=== PATIENT | female | born 1950 | race Two or more races ===

== ENCOUNTER 2017-02-11 16:45 | Inpatient (IN) | payer MEDICAID ==
[2017-02-11] VITALS (13 sets, daily range): BP systolic 49–125; BP diastolic 20–96
[~2017-02-11] VITALS: Ht 160 cm; Wt 71.7 kg
[2017-02-11] MEDS ORDERED: Vancomycin 1 GM in NS 275 ML IV ONE (17:00)
[2017-02-11] MEDS ORDERED: NS 1000ml 1,700 ML IVLG ONE (17:00)
[2017-02-11] MEDS ORDERED: PANTOPRAZOLE SO40 MG GT (17:00)
[2017-02-11] MEDS ORDERED: BRIMONIDINE TART5 ML RIGHT EYE (17:00)
[2017-02-11] MEDS ORDERED: ZOFRAN 4 MG4 MG/2 ML IV (17:00)
[2017-02-11] MEDS ORDERED: Cefepime HCl 1 GM in NS 55 ML IV SCH (17:00)
[2017-02-11] MEDS ORDERED: ASPIR 8181 MG GT (17:00)
[2017-02-11] MEDS ORDERED: HEPARIN SO5000 UNIT2 SUBQ (17:00)
[2017-02-11] MEDS ORDERED: METOPROLOL TART25 MG GT (17:00)
[2017-02-11] MEDS ORDERED: TRUSOPT10 ML RIGHT EYE (17:00)
[2017-02-11] MEDS ORDERED: IRON325 M1 GT (17:00)
[2017-02-11 17:32] LABS: APPEARANCE,URINE CLEAR; KETONES,URINE NEGATIVE (NEGATIVE); LEUKOCYTE ESTERASE ,URINE 1+ (NEGATIVE); NITRITE,URINE NEGATIVE (NEGATIVE); PH,URINE 5 (4.5-8.0); PROTEIN,URINE 2+ (NEGATIVE); UROBILINOGEN,URINE NORMAL MG/DL (0.0-1.0)
[2017-02-11 17:45] LABS: BACTERIA,URINE MODERATE /HPF; SQUAMOUS EPITHELIAL CELL,UR OCCASIONAL /LPF (NONE/OCC)
[2017-02-11] MEDS ORDERED: Cefepime 1gm vial ONE (17:59)
[2017-02-11 18:03] LABS: MEAN CORPUSCULAR HEMOGLOBIN 31.4 PG (27.0-31.0); MEAN CORPUSCULAR HGB CONC 33.9 G/DL (32.0-36.0); MEAN CORPUSCULAR VOLUME 93 FL (80-99); MEAN PLATELET VOLUME 8.8 FL (6.5-10.1); PLATELET COUNT 380 K/UL (150-450); RED BLOOD COUNT 2.91 M/UL (4.20-5.40); RED CELL DISTRIBUTION WIDTH 16.4 % (11.6-14.8)
[2017-02-11 18:05] LABS: BASOPHILS % (AUTO) 0.5 % (0.0-2.0); LYMPHOCYTES % (AUTO) 3.6 % (20.0-45.0); NEUTROPHILS % (AUTO) 94.8 % (45.0-75.0)
[2017-02-11 18:14] LABS: PROTHROMBIN TIME 10.5 SEC (9.30-11.50)
[2017-02-11] MEDS ORDERED: Vancomycin 1gm inj IVPB ONE (18:15)
[2017-02-11 18:18] LABS: TROPONIN I < 0.30 ng/mL (<=0.30)
[2017-02-11 18:21] LABS: ALANINE AMINOTRANSFERASE 8 U/L (3-33); ALBUMIN/GLOBULIN RATIO 0.5 (1.0-2.7); ANION GAP 13 (5-15); ASPARTATE AMINO TRANSFERASE 16 U/L (5-40); CALCIUM 6.9 mg/dL (8.6-10.2); CARBON DIOXIDE 20 mEQ/L (20-30); CHLORIDE 99 mEQ/L (98-107); CREATININE 0.6 mg/dL (0.5-0.9); GLOMERULAR FILTRATION RATE > 60 mL/min (>60); HEMOLYSIS 2; POTASSIUM 5.5 mEQ/L (3.4-4.9); SODIUM 132 mEQ/L (135-145); TOTAL PROTEIN 5.2 g/dL (6.6-8.7)
[2017-02-11 18:31] LABS: CKMB 1.8 ng/mL (< 3.8)
--- NOTE | 2017-02-11 18:39 | Emergency Room Report ---
History of Present Illness General Chief Complaint: Dyspnea/Respdistress Source: Patient, EMS Present Illness HPI [facility] She presents with concern of aspiration. The patient was vomiting and the [facility] staff noted stomach contents coming from her trach. Patient has a history of metastatic breast cancer. She has a history of respiratory failure and is ventilator dependent. She is status post tracheostomy. She diabetes. History of renal failure. She is nonverbal. History is obtained from EMS and from the patient's medical record. EMS reports that on arrival the patient's oxygen saturation were low in the 80s. However, the saturation normalized 100% when they were bagging this patient. Allergies: Coded Allergies: No Known Allergies (Unverified , 02/11/17) Patient History Past Medical History: see triage record, old chart reviewed, DM, renal disease , other - Metastatic breast CA, anemia DVT, vent/PEG Past Surgical History: other - Tracheostomy, PEG Social History: Denies: smoking, alcohol use, drug use Reviewed Nursing Documentation: PMH: Agreed, PSxH: Agreed Nursing Documentation-PMH Past Medical History: No History, Except For Hx Hypertension: Yes Hx Pacemaker: No - ANEMIA Hx Diabetes: Yes Hx Cancer: Yes - LEFT BREAST Hx Seizures: No - ON VENT Review of Systems All Other Systems: limited Physical Exam Vital Signs Date Time Temp Pulse Resp B/P (MAP) Pulse Ox O2 Delivery O2 Flow Rate FiO2 02/11/17 16:42 118 20 108/54 100 Mechanical Ventilator 02/11/17 16:45 100 02/11/17 17:00 100.9 15.0 Sp02 EP Interpretation: reviewed, normal General Appearance: no apparent distress, other - frail, ill appearing female. Non-repsonsive, +bilious fluid from mouth. , Chronically Ill Head: normocephalic, atraumatic ENT: no angioedema Neck: other - Trach in place Respiratory: chest non-tender, lungs clear, normal breath sounds, speaking full sentences Cardiovascular #1: tachycardia, other - Anasarca Gastrointestinal: soft, distended Rectal: deferred Musculoskeletal: swelling - Anasarca Neurologic: other - GCS 3T, non-focal Skin: other - Anasarca Medical Decision Making Diagnostic Impression: Primary Impression: Septic shock ER Course This patient presents in septic shock. She had bilious vomiting on arrival. She was suctioned with a deep suction catheter by respiratory therapy. She is placed on a ventilator. She does not have any desaturations. She is found to have bilateral pleural effusions on chest x-ray. I am unsure of the acuity of this. There is no prior available. The G-tube was also placed to intermittent suction given the vomiting. Patient's white blood cell count is 18 and the patient was hypotensive on arrival. The patient responded to aggressive IV fluids and was given broad-spectrum antibiotics. CT of the abdomen and pelvis was obtained after the patient's blood pressure stabilized and this showed . . This patient is critically ill. This patient required complex medical decision- making, aggressive intervention, extensive laboratory workup and monitoring. Critical care time: 40 minutes. Laboratory Tests Test 02/11/17 17:05 02/11/17 17:40 Urine Color Yellow Urine Appearance Clear Urine pH 5 (4.5-8.0) Urine Specific [place] 1.015 (1.005-1.035) Urine Protein 2+ (NEGATIVE) H Urine Glucose (UA) Negative (NEGATIVE) Urine Ketones Negative (NEGATIVE) Urine Occult Blood 2+ (NEGATIVE) H Urine Nitrite Negative (NEGATIVE) Urine Bilirubin Negative (NEGATIVE) Urine Urobilinogen Normal MG/DL (0.0-1.0) Urine Leukocyte Esterase 1+ (NEGATIVE) H Urine RBC 10-15 /HPF (0 - 2) H Urine WBC 5-10 /HPF (0 - 2) H Urine Squamous Epithelial Cells Occasional /LPF Urine Bacteria Moderate /HPF (NONE) H White Blood Count 18.0 K/UL (4.8-10.8) H Red Blood Count 2.91 M/UL (4.20-5.40) L Hemoglobin 9.1 G/DL (12.0-16.0) L Hematocrit 27.0 % (37.0-47.0) L Mean Corpuscular Volume 93 FL (80-99) Mean Corpuscular Hemoglobin 31.4 PG (27.0-31.0) H Mean Corpuscular Hemoglobin Concent 33.9 G/DL (32.0-36.0) Red Cell Distribution Width 16.4 % (11.6-14.8) H Platelet Count 380 K/UL (150-450) Mean Platelet Volume 8.8 FL (6.5-10.1) Neutrophils (%) (Auto) 94.8 % (45.0-75.0) H Lymphocytes (%) (Auto) 3.6 % (20.0-45.0) L Monocytes (%) (Auto) 1.0 % (1.0-10.0) Eosinophils (%) (Auto) 0.0 % (0.0-3.0) Basophils (%) (Auto) 0.5 % (0.0-2.0) Prothrombin Time 10.5 SEC (9.30-11.50) Prothrombin Time INR 1.0 (0.9-1.1) PTT 41 SEC (23-33) H Sodium Level 132 mEQ/L (135-145) L Potassium Level 5.5 mEQ/L (3.4-4.9) H Chloride Level 99 mEQ/L (98-107) Carbon Dioxide Level 20 mEQ/L (20-30) Anion Gap 13 (5-15) Blood Urea Nitrogen 34 mg/dL (7-23) H Creatinine 0.6 mg/dL (0.5-0.9) Estimate Glomerular Filtration Rate > 60 mL/min (>60) Glucose Level 152 mg/dL (74-106) H Lactic Acid Level 1.80 mmol/L (0.66-2.22) Calcium Level 6.9 mg/dL (8.6-10.2) L Total Bilirubin 0.3 mg/dL (0.0-1.2) Aspartate Amino Transferase (AST) 16 U/L (5-40) Alanine Aminotransferase (ALT) 8 U/L (3-33) Alkaline Phosphatase 102 U/L (35-104) Total Creatine Kinase 21 U/L (26-140) L Creatine Kinase MB Pending Troponin I < 0.30 ng/mL (<=0.30) Total Protein 5.2 g/dL (6.6-8.7) L Albumin 1.8 g/dL (3.5-5.2) L Globulin 3.4 g/dL Albumin/Globulin Ratio 0.5 (1.0-2.7) L EKG Diagnostic Results Rate: tachycardiac Rhythm: other ST Segments: other - NSST Rhythm Strip Diag. Results EP Interpretation: yes Rate: 110's Rhythm: no PVC's, no ectopy Other Impression S.tachycardia. Chest X-Ray Diagnostic Results Chest X-Ray Diagnostic Results : Chest X-Ray Ordered: Yes # of Views/Limited/Complete: 1 View Indication: Other Interpretation: other Impression: Other - Bilateral pleural effusions. Electronically Signed by: Stas CT/MRI/US Diagnostic Results CT/MRI/US Diagnostic Results : Imaging Test Ordered: CT abd/pelvis Impression Consolidation of the right lower lobe. No acute findings. See official report for multiple incidental and chronic findings. Last Vital Signs Date Time Temp Pulse Resp B/P (MAP) Pulse Ox O2 Delivery O2 Flow Rate FiO2 02/11/17 18:15 100.1 106 21 117/96 100 Mechanical Ventilator 15.0 100 Disposition: ADMITTED INPATIENT Condition: Critical Referrals: AMALIA HUGO (PCP) LESLIE SRIVASTAVA D.O. Feb 11, 2017 18:39
[2017-02-11] MEDS ORDERED: Acetaminophen 650 MG SUPP RECTAL ONE (18:45)
[2017-02-11] MEDS ORDERED: Zolpidem 5mg tab ORAL PRN (22:45)
[2017-02-11] MEDS ORDERED: Metoprolol 25mg tab GT ONE (23:00)
[2017-02-12] VITALS (26 sets, daily range): BP systolic 82–130; BP diastolic 44–92
[2017-02-12] MEDS ORDERED: Vancomycin 1gm inj IVPB ONE (00:59)
[2017-02-12] MEDS ORDERED: Zosyn 3.375gm inj ONE (01:00)
[2017-02-12] MEDS: Piperacillin/Tazobactam 3.375 GM in D5W 110 ML IVPB SCH ×3 (01:30→17:30)
[2017-02-12 04:18] LABS: MEAN CORPUSCULAR HEMOGLOBIN 31.5 PG (27.0-31.0); MEAN CORPUSCULAR HGB CONC 33.8 G/DL (32.0-36.0); MEAN CORPUSCULAR VOLUME 93 FL (80-99); MEAN PLATELET VOLUME 8.8 FL (6.5-10.1); PLATELET COUNT 342 K/UL (150-450); RED BLOOD COUNT 2.62 M/UL (4.20-5.40); RED CELL DISTRIBUTION WIDTH 16.7 % (11.6-14.8)
[2017-02-12 04:27] LABS: ANION GAP 12 (5-15); CALCIUM 6.6 mg/dL (8.6-10.2); CARBON DIOXIDE 17 mEQ/L (20-30); CHLORIDE 103 mEQ/L (98-107); CREATININE 0.5 mg/dL (0.5-0.9); GLOMERULAR FILTRATION RATE > 60 mL/min (>60); HEMOLYSIS 45; POTASSIUM 5.1 mEQ/L (3.4-4.9); SODIUM 132 mEQ/L (135-145)
[2017-02-12 04:57] LABS: WHITE BLOOD COUNT 25.4 K/UL (4.8-10.8)
[2017-02-12] MEDS: LORazepam 0.5mg tab GT PRN (05:46)
[2017-02-12] MEDS ORDERED: Zolpidem 5mg tab GT PRN (06:00)
[2017-02-12] MEDS: NovoLOG Insulin Flexpen SUBQ SCH ×4 (06:18→21:00)
[2017-02-12] MEDS ORDERED: NovoLOG Insulin Flexpen SUBQ SCH (06:30)
[2017-02-12] MEDS ORDERED: Vancomycin 750mg/NS 250ml IVPB SCH (07:00)
[2017-02-12] MEDS: Aspirin Baby 81mg GT SCH (08:44)
[2017-02-12] MEDS: Docusate 100mg/10ml Liq GT SCH (08:44)
[2017-02-12] MEDS: Ferrous Sulfate 300 MG/5 ML UDC GT SCH ×3 (08:44→17:30)
[2017-02-12] MEDS: Heparin 5000 units/ml inj SUBQ SCH ×2 (08:51→18:19)
[2017-02-12] MEDS: Levemir Flexpen SUBQ SCH ×2 (09:00→16:24)
[2017-02-12] MEDS ORDERED: Docusate 100mg cap ORAL SCH (09:00)
[2017-02-12] MEDS ORDERED: Dyna-Hex 2% Top Sol 2oz TOPIC SCH (09:00)
--- NOTE | 2017-02-12 09:05 | Diagnostic Imaging Report ---
Clinical Indication: Abdominal pain Technique: No oral contrast utilized, per emergency room physician request IV administration nonionic contrast. Venous phase spiral acquisition obtained through the abdomen and pelvis. Multiplanar reconstructions were generated. Total dose length product 1036 mGycm. CTDIvol(s) 19 mGy. Dose reduction achieved using automated exposure control Comparison: None Findings: There is anasarca. There is generalized edema of the subcutaneous fat diffusely. There is less striking edema of the mesenteric and retroperitoneal fat. There is trace ascites fluid. There is trace bilateral pleural fluid. There is a small amount of pericardial fluid posteriorly and laterally. There is a gastrostomy in place. The distal esophagus and the remainder the stomach are unremarkable. Unremarkable duodenum. No evidence of diverticulosis or diverticulitis. The appendix is not definitely visualized, but there are no findings to suggest acute appendicitis. In the right lower quadrant, there is a well-circumscribed unilocular cystic lesion which measures 5.5 cm long axis dimension, demonstrates a minimally perceptible minimally enhancing rim. No small bowel distention. No free intraperitoneal air is demonstrated. The gallbladder contains one or more gallstones. Focal fatty infiltration is seen in the liver in the usual location adjacent to the fissure for the ligamentum teres. Nonspecific linear hypodensities are seen in the right and left hepatic lobes. No biliary ductal dilatation. The pancreas, spleen, adrenals, kidneys are unremarkable. No retroperitoneal or mesenteric mass or adenopathy. The uterus is unremarkable. There is a Schulz catheter within the bladder. There is air within the bladder, presumably related to the Schulz catheterization. Unusual pocket of gas is seen anterior and superior to the bladder. Is unclear whether this is intraluminal within the bladder or represents extraluminal perivesicular gas. Unusual pockets are also seen at the base of the bladder, relationship to the bladder lumen likewise uncertain although suspect that these are intraluminal. The included lung bases demonstrate diffuse consolidation of the entirety of the right lower lobe. The consolidation is very low in attenuation. There is less extensive consolidation of the left lower lobe and the lingula. Reticulonodular opacities are seen scattered throughout the right upper lobe. There is some consolidation and reticulonodular opacities within the right middle lobe as well. The tip of a central venous catheter is seen within the right. There is increased attenuation of the right breast and some focal skin thickening of the right breast is somewhat asymmetrically decreased size of the left breast and possible dystrophic calcifications. The bones demonstrate numerous osteosclerotic lesions within the thoracic and lumbar spine as well as within the pelvis. Impression: Anasarca, with generalized edema of the subcutaneous fat diffusely, edema of the mesenteric and retroperitoneal fat, trace ascites, trace bilateral pleural fluid, pericardial fluid Consolidation of the entire right lower lobe, portions of the remainder of the lungs. Findings are concerning for pneumonia. Low-attenuation of much of the consolidative opacity raises concern for necrotizing pneumonia Well-circumscribed unilocular cystic lesion in the right lower quadrant of the abdomen with minimally perceptible minimally enhancing rim. Probably a cystic lesion, possibly and adnexal cyst or an enteric duplication. However, complicated loculated ascites collection or abscess are also a possibility. The possibility of cystic neoplasm also should be considered Cholelithiasis Schulz catheter. There are pockets that are probably intraluminal within the bladder related to Schulz catheter. However, there are somewhat unusual in configuration, and the possibility of extraluminal perivesicular gas s -- hould be considered, while less likely Focal increased attenuation of the right breast and focal skin thickening in the right breast. Possibly related to the anasarca, with possibly of inflammatory carcinoma should be considered. Asymmetric smaller left breast, correlate with any history of prior lumpectomy Numerous sclerotic osseous foci, suspicious for osteoblastic metastases, possibly of breast origin given the above findings Other findings as noted, including central venous catheter, focal fatty infiltration in the liver, gastrostomy in good position Artery [employer] The CT scanner at [facility] is accredited by the [employer] and the scans are performed using protocols designed to limit radiation exposure to as low as reasonably achievable to attain images of sufficient resolution adequate for diagnostic evaluation.
[2017-02-12 09:44] LABS: ANISOCYTOSIS 1+; BAND NEUTROPHILS % (MANUAL) 7 % (0-8); BASOPHILS % (MANUAL) 0 % (0-2); BURR CELLS 1+; EOSINOPHILS % (MANUAL) 0 % (0-3); HYPOCHROMASIA 1+; LYMPHOCYTES % (MANUAL) 7 % (20-45); METAMYELOCYTES % 9 % (0-0); NEUTROPHILS % (MANUAL) 74 % (45-75); PLATELET ESTIMATE ADEQUATE; PLATELET MORPHOLOGY NORMAL; TOTAL CELLS COUNTED 100
[2017-02-12 09:45] LABS: ACANTHOCYTES 1+; POLYCHROMASIA 1+
--- NOTE | 2017-02-12 09:58 | Wound Care Consultation ---
Wound Assessment Wound Assessment #1: Wound Number: 1 Wound Present on Admission: Yes New Wound: No Status Change of Wound: No Wound Location Body Site Modif: mid Wound Location Body Site: sacral Wound Type: pressure ulcer Valerie Test: Does not Valerie Pressure Ulcer Stage: IV/unstageable Wound Thickness: Full Thickness Wound Length: 3.5 Wound Width: 3.0 Wound Depth: utd Percent of Wound [place]/Red: 50 Percent of Wound Bed Yellow/Wh: 50 Wound Drainage Description: Serosanguineous Wound Drainage Amount: Moderate Wound Drainage Odor: None/Absent Tissue Surrounding Wound: Macerated Wound General Appearance: Reddened - yellow slough, Draining Wound Assessment #2: Wound Number: 2 Wound Present on Admission: Yes New Wound: No Status Change of Wound: No Wound Location Body Site Modif: left, right Wound Location Body Site: iliac crest Wound Type: other - scattered Denuded skin Valerie Test: Does not Valerie Wound Thickness: Partial Thickness Wound Length: 2.5 Wound Width: 9.0 Wound Depth: less than 0.1 Percent of Wound [place]/Red: 100 Wound Drainage Description: Serosanguineous Wound Drainage Amount: Scant Wound Drainage Odor: None/Absent Tissue Surrounding Wound: Erythemic Wound General Appearance: Reddened Wound Assessment #3: Wound Number: 3 Wound Present on Admission: Yes New Wound: No Status Change of Wound: No Wound Location Body Site Modif: left Wound Location Body Site: ischial tuberosity Wound Type: pressure ulcer Valerie Test: Does not Valerie Pressure Ulcer Stage: II Wound Thickness: Partial Thickness Wound Length: 2.0 Wound Width: 2.5 Wound Depth: less than 0.1 Percent of Wound [place]/Red: 100 Wound Drainage Description: Serosanguineous Wound Drainage Amount: Scant Wound Drainage Odor: None/Absent Tissue Surrounding Wound: Erythemic Wound General Appearance: Reddened, Draining Wound Comment #1 Sacral unstageable pressure ulcer #2 Left ischial tuberosity stage II pressure ulcer #3 Left and right iliac crest scattered denuded skin with partial thickness skin loss #4 Right back area with sutures and willie. Follow MD order #5 Multiple discolorations on both arms Recommendation -Sacral unstageable pressure ulcer, Cleanse with saline, pat dry, apply skin barrier film to avril wound, apply Therahoney gel to wound bed, cover with calcium alginate, secure with bordered gauze daily and PRN soiled/dislodged -Left ischial tuberosity stage II pressure ulcer, Left and right iliac crest denuded skin, Cleanse with saline, pat dry, apply Triad cream, cover with Bordered gauze daily and PRN soiled/dislodged -Turn and reposition -Offload both heel -Heel protector on both heels -Optimize nutrition -Keep clean and dry -Low air loss mattress -Assess and f/u accordingly for any changes ALANNAH ROLLINS RN Feb 12, 2017 09:58
--- NOTE | 2017-02-12 10:52 | Diagnostic Imaging Report ---
Indication: SOB Technique: One view of the chest Comparison: none Findings: There are bilateral large pleural effusions. There is a right chest port catheter. There is bilateral interstitial congestion. There is a tracheostomy. Heart size is difficult to assess, may be borderline enlarged Impression: Bilateral pleural effusions Bilateral interstitial edema Tracheostomy and port catheter incidentally noted
--- NOTE | 2017-02-12 13:27 | History & Physical ---
History and Physical History & Physicial 66 year old patient [facility]. She presents with concern of aspiration and acute change. The patient was vomiting and the detention facility staff noted stomach contents coming from her trach. Patient has a history of metastatic breast cancer and family still desires ongoing care. She has a history of respiratory failure and is ventilator dependent and recently placed at [place]. She is status post tracheostomy. She diabetes. History of renal failure. She is nonverbal. Patient admitted for possible sepsis and pneumonia Allergies: No Known Allergies (Unverified , 02/11/17) Past Medical History: DM, renal disease, Metastatic breast CA, anemia DVT, vent/PEG Past Surgical History: Tracheostomy, PEG Social History: no smoking, alcohol use, drug use Reviewed of systems: unable Physical exam WDWN chronically ill NAD coarse breath sounds bilaterally [id number] without MRG NABS nontender no HSM no CC anasarca nonfocal Laboratory Tests Test 02/11/17 17:05 02/11/17 17:40 02/12/17 03:25 Urine Color Yellow Urine Appearance Clear Urine pH 5 (4.5-8.0) Urine Specific [place] 1.015 (1.005-1.035) Urine Protein 2+ (NEGATIVE) H Urine Glucose (UA) Negative (NEGATIVE) Urine Ketones Negative (NEGATIVE) Urine Occult Blood 2+ (NEGATIVE) H Urine Nitrite Negative (NEGATIVE) Urine Bilirubin Negative (NEGATIVE) Urine Urobilinogen Normal MG/DL (0.0-1.0) Urine Leukocyte Esterase 1+ (NEGATIVE) H Urine RBC 10-15 /HPF (0 - 2) H Urine WBC 5-10 /HPF (0 - 2) H Urine Squamous Epithelial Cells Occasional /LPF Urine Bacteria Moderate /HPF (NONE) H White Blood Count 18.0 K/UL (4.8-10.8) H 25.4 K/UL (4.8-10.8) *H Red Blood Count 2.91 M/UL (4.20-5.40) L 2.62 M/UL (4.20-5.40) L Hemoglobin 9.1 G/DL (12.0-16.0) L 8.2 G/DL (12.0-16.0) L Hematocrit 27.0 % (37.0-47.0) L 24.4 % (37.0-47.0) L Mean Corpuscular Volume 93 FL (80-99) 93 FL (80-99) Mean Corpuscular Hemoglobin 31.4 PG (27.0-31.0) H 31.5 PG (27.0-31.0) H Mean Corpuscular Hemoglobin Concent 33.9 G/DL (32.0-36.0) 33.8 G/DL (32.0-36.0) Red Cell Distribution Width 16.4 % (11.6-14.8) H 16.7 % (11.6-14.8) H Platelet Count 380 K/UL (150-450) 342 K/UL (150-450) Mean Platelet Volume 8.8 FL (6.5-10.1) 8.8 FL (6.5-10.1) Neutrophils (%) (Auto) 94.8 % (45.0-75.0) H % (45.0-75.0) Lymphocytes (%) (Auto) 3.6 % (20.0-45.0) L % (20.0-45.0) Monocytes (%) (Auto) 1.0 % (1.0-10.0) % (1.0-10.0) Eosinophils (%) (Auto) 0.0 % (0.0-3.0) % (0.0-3.0) Basophils (%) (Auto) 0.5 % (0.0-2.0) % (0.0-2.0) Prothrombin Time 10.5 SEC (9.30-11.50) Prothromb Time International Ratio 1.0 (0.9-1.1) Activated Partial Thromboplast Time 41 SEC (23-33) H Sodium Level 132 mEQ/L (135-145) L 132 mEQ/L (135-145) L Potassium Level 5.5 mEQ/L (3.4-4.9) H 5.1 mEQ/L (3.4-4.9) H Chloride Level 99 mEQ/L (98-107) 103 mEQ/L (98-107) Carbon Dioxide Level 20 mEQ/L (20-30) 17 mEQ/L (20-30) L Anion Gap 13 (5-15) 12 (5-15) Blood Urea Nitrogen 34 mg/dL (7-23) H 29 mg/dL (7-23) H Creatinine 0.6 mg/dL (0.5-0.9) 0.5 mg/dL (0.5-0.9) Estimat Glomerular Filtration Rate > 60 mL/min (>60) > 60 mL/min (>60) Glucose Level 152 mg/dL (74-106) H 84 mg/dL (74-106) Lactic Acid Level 1.80 mmol/L (0.66-2.22) Calcium Level 6.9 mg/dL (8.6-10.2) L 6.6 mg/dL (8.6-10.2) L Total Bilirubin 0.3 mg/dL (0.0-1.2) Aspartate Amino Transf (AST/SGOT) 16 U/L (5-40) Alanine Aminotransferase (ALT/SGPT) 8 U/L (3-33) Alkaline Phosphatase 102 U/L (35-104) Total Creatine Kinase 21 U/L (26-140) L Creatine Kinase MB 1.8 ng/mL (< 3.8) Creatine Kinase MB Relative Index 8.5 Troponin I < 0.30 ng/mL (<=0.30) Total Protein 5.2 g/dL (6.6-8.7) L Albumin 1.8 g/dL (3.5-5.2) L Globulin 3.4 g/dL Albumin/Globulin Ratio 0.5 (1.0-2.7) L Differential Total Cells Counted 100 Neutrophils % (Manual) 74 % (45-75) Lymphocytes % (Manual) 7 % (20-45) L Monocytes % (Manual) 3 % (1-10) Eosinophils % (Manual) 0 % (0-3) Basophils % (Manual) 0 % (0-2) Metamyelocytes % 9 % (0-0) H Band Neutrophils 7 % (0-8) Platelet Estimate Adequate Platelet Morphology Normal Polychromasia 1+ Hypochromasia 1+ Anisocytosis 1+ [place] Cells 1+ Acanthocytes 1+ IMPRESSION Sepsis respiratory failure anasarca CRF possible gastroparesis metastatic breast ca PLAN prognosis poor maintain meds dc iv fluids ID evaluation empiric antibiotics followup imaging and labs d/w family as to code status AMALIA HUGO Feb 12, 2017 13:27
[2017-02-12] MEDS: Brimonidine 0.2% Opth Sol RIGHT EYE SCH ×2 (13:48→21:01)
[2017-02-12] MEDS: Dorzolamide 2% 10ml Btl RIGHT EYE SCH ×2 (13:49→21:01)
--- NOTE | 2017-02-12 14:44 | Cardiology Report ---
APPROVED REPORT EKG Measurement Heart [id number] [place] [id number] Sinus tachycardia Low voltage QRS Abnormal QRS-T angle, consider primary T wave abnormality Abnormal ECG
[2017-02-12] MEDS: Vancomycin 750mg/NS 250ml IVPB SCH (19:37)
[2017-02-13] VITALS (24 sets, daily range): BP systolic 95–150; BP diastolic 36–96
[2017-02-13] MEDS: Piperacillin/Tazobactam 3.375 GM in D5W 110 ML IVPB SCH ×3 (02:33→17:12)
[2017-02-13] MEDS: Dorzolamide 2% 10ml Btl RIGHT EYE SCH ×3 (06:44→22:12)
[2017-02-13] MEDS: Brimonidine 0.2% Opth Sol RIGHT EYE SCH ×3 (06:44→22:12)
[2017-02-13] MEDS: NovoLOG Insulin Flexpen SUBQ SCH ×4 (06:46→20:44)
[2017-02-13 08:45] LABS: MEAN CORPUSCULAR HEMOGLOBIN 30.6 PG (27.0-31.0); MEAN CORPUSCULAR HGB CONC 32.7 G/DL (32.0-36.0); MEAN CORPUSCULAR VOLUME 93 FL (80-99); MEAN PLATELET VOLUME 8.3 FL (6.5-10.1); PLATELET COUNT 349 K/UL (150-450); RED BLOOD COUNT 2.69 M/UL (4.20-5.40); RED CELL DISTRIBUTION WIDTH 16.1 % (11.6-14.8)
[2017-02-13 08:53] LABS: WHITE BLOOD COUNT 39.4 K/UL (4.8-10.8)
[2017-02-13] MEDS: Aspirin Baby 81mg GT SCH (09:00)
[2017-02-13 09:03] LABS: ANION GAP 13 (5-15); CALCIUM 6.7 mg/dL (8.6-10.2); CARBON DIOXIDE 17 mEQ/L (20-30); CHLORIDE 105 mEQ/L (98-107); CREATININE 0.6 mg/dL (0.5-0.9); GLOMERULAR FILTRATION RATE > 60 mL/min (>60); HEMOLYSIS 1; POTASSIUM 4.9 mEQ/L (3.4-4.9); SODIUM 135 mEQ/L (135-145)
[2017-02-13] MEDS: Vancomycin 750mg/NS 250ml IVPB SCH (09:30)
[2017-02-13] MEDS: Acetaminophen 650mg/20.3ml GT PRN ×2 (09:31→17:15)
[2017-02-13] MEDS: Ferrous Sulfate 300 MG/5 ML UDC GT SCH ×3 (09:31→17:14)
[2017-02-13] MEDS: Docusate 100mg/10ml Liq GT SCH (09:31)
[2017-02-13] MEDS: Heparin 5000 units/ml inj SUBQ SCH ×2 (09:34→17:14)
[2017-02-13] MEDS: Levemir Flexpen SUBQ SCH ×2 (09:35→17:14)
[2017-02-13 10:20] LABS: BAND NEUTROPHILS % (MANUAL) 9 % (0-8); BASOPHILS % (MANUAL) 0 % (0-2); BURR CELLS 1+; EOSINOPHILS % (MANUAL) 0 % (0-3); LYMPHOCYTES % (MANUAL) 4 % (20-45); NEUTROPHILS % (MANUAL) 85 % (45-75); PLATELET ESTIMATE ADEQUATE; PLATELET MORPHOLOGY NORMAL; TOTAL CELLS COUNTED 100
[2017-02-13 10:21] LABS: ANISOCYTOSIS 1+; POLYCHROMASIA 1+; PROMYELOCYTES % 1 % (0-0); SCHISTOCYTES 1+
[2017-02-13 10:33] LABS: OTHERS PATHOLOGIST COMMENT
--- NOTE | 2017-02-13 14:58 | Critical Care Progress Note ---
Assessment/Plan Assessment/Plan IMPRESSION Sepsis respiratory failure anasarca CRF possible gastroparesis metastatic breast ca leukocytosis PLAN prognosis poor maintain meds feeds ID evaluation empiric antibiotics followup imaging and labs followup cultures d/w family as to code status Critical Care - Subjective ROS Limited/Unobtainable: Yes Condition: critical I&O: Intake and Output 02/13/17 02/14/17 19:00 07:00 Intake Total 1452.5 ml Output Total 380 ml Balance 1072.5 ml IV Total 982.5 ml Tube Feeding 350 ml Other 120 ml Output Urine Total 380 ml Critical Care - Objective Last 24 Hour Vital Signs Date Time Temp Pulse Resp B/P (MAP) Pulse Ox O2 Delivery O2 Flow Rate FiO2 02/13/17 14:00 109 26 101/36 100 Mechanical Ventilator 40 02/13/17 13:05 113 32 40 02/13/17 13:00 105 27 109/54 100 Mechanical Ventilator 40 02/13/17 12:00 40 02/13/17 12:00 114 02/13/17 12:00 98.2 102 22 130/53 100 Mechanical Ventilator 40 02/13/17 11:13 104 34 40 02/13/17 11:00 103 20 110/72 100 Mechanical Ventilator 40 02/13/17 10:01 98.7 02/13/17 10:00 107 21 97/78 100 Mechanical Ventilator 40 02/13/17 09:00 110 29 119/79 100 Mechanical Ventilator 40 02/13/17 08:46 104 34 40 02/13/17 08:00 104 02/13/17 08:00 98.7 102 23 120/37 100 Mechanical Ventilator 40 02/13/17 07:43 40 02/13/17 07:26 115 34 40 02/13/17 07:00 106 25 103/82 97 Mechanical Ventilator 40 02/13/17 06:00 103 25 127/79 99 Mechanical Ventilator 40 02/13/17 05:31 94 38 40 02/13/17 05:00 103 25 109/45 99 Mechanical Ventilator 40 02/13/17 04:00 98.0 104 25 115/45 99 Mechanical Ventilator 40 02/13/17 04:00 103 02/13/17 04:00 40 02/13/17 03:24 104 36 40 02/13/17 03:00 103 25 112/89 99 Mechanical Ventilator 40 02/13/17 02:00 101 25 102/86 99 Mechanical Ventilator 40 02/13/17 01:25 103 37 40 02/13/17 01:00 104 25 107/57 99 Mechanical Ventilator 40 02/13/17 00:30 107/57 02/13/17 00:00 40 02/13/17 00:00 97.9 104 25 100/44 99 Mechanical Ventilator 40 02/13/17 00:00 101 02/12/17 23:05 108 35 40 02/12/17 23:00 109 25 104/44 99 Mechanical Ventilator 40 02/12/17 22:00 109 23 118/69 99 Mechanical Ventilator 40 02/12/17 21:10 105 35 40 02/12/17 21:00 104 23 130/75 99 Mechanical Ventilator 40 02/12/17 20:00 40 02/12/17 20:00 105 02/12/17 20:00 97.8 103 26 111/71 99 Mechanical Ventilator 40 02/12/17 19:14 103 33 40 02/12/17 19:00 97 23 118/92 99 Mechanical Ventilator 40 02/12/17 18:01 101 25 111/56 99 Mechanical Ventilator 40 02/12/17 17:01 102 24 40 02/12/17 17:00 98 24 111/51 99 Mechanical Ventilator 40 02/12/17 16:00 99 02/12/17 16:00 98.4 100 23 109/68 99 Mechanical Ventilator 40 02/12/17 16:00 40 02/12/17 15:24 108 39 40 02/12/17 15:01 101 28 88/53 99 Mechanical Ventilator 40 Labs: Labs Test 02/11/17 17:05 02/11/17 17:40 02/12/17 03:25 02/13/17 07:45 Urine Color Yellow Urine Appearance Clear Urine pH 5 (4.5-8.0) Urine Specific [place] 1.015 (1.005-1.035) Urine Protein 2+ (NEGATIVE) Urine Glucose (UA) Negative (NEGATIVE) Urine Ketones Negative (NEGATIVE) Urine Occult Blood 2+ (NEGATIVE) Urine Nitrite Negative (NEGATIVE) Urine Bilirubin Negative (NEGATIVE) Urine Urobilinogen Normal MG/DL (0.0-1.0) Urine Leukocyte Esterase 1+ (NEGATIVE) Urine RBC 10-15 /HPF (0 - 2) Urine WBC 5-10 /HPF (0 - 2) Urine Squamous Epithelial Cells Occasional /LPF Urine Bacteria Moderate /HPF (NONE) White Blood Count 18.0 K/UL (4.8-10.8) 25.4 K/UL (4.8-10.8) 39.4 K/UL (4.8-10.8) Red Blood Count 2.91 M/UL (4.20-5.40) 2.62 M/UL (4.20-5.40) 2.69 M/UL (4.20-5.40) Hemoglobin 9.1 G/DL (12.0-16.0) 8.2 G/DL (12.0-16.0) 8.2 G/DL (12.0-16.0) Hematocrit 27.0 % (37.0-47.0) 24.4 % (37.0-47.0) 25.1 % (37.0-47.0) Mean Corpuscular Volume 93 FL (80-99) 93 FL (80-99) 93 FL (80-99) Mean Corpuscular Hemoglobin 31.4 PG (27.0-31.0) 31.5 PG (27.0-31.0) 30.6 PG (27.0-31.0) Mean Corpuscular Hemoglobin Concent 33.9 G/DL (32.0-36.0) 33.8 G/DL (32.0-36.0) 32.7 G/DL (32.0-36.0) Red Cell Distribution Width 16.4 % (11.6-14.8) 16.7 % (11.6-14.8) 16.1 % (11.6-14.8) Platelet Count 380 K/UL (150-450) 342 K/UL (150-450) 349 K/UL (150-450) Mean Platelet Volume 8.8 FL (6.5-10.1) 8.8 FL (6.5-10.1) 8.3 FL (6.5-10.1) Neutrophils (%) (Auto) 94.8 % (45.0-75.0) % (45.0-75.0) % (45.0-75.0) Lymphocytes (%) (Auto) 3.6 % (20.0-45.0) % (20.0-45.0) % (20.0-45.0) Monocytes (%) (Auto) 1.0 % (1.0-10.0) % (1.0-10.0) % (1.0-10.0) Eosinophils (%) (Auto) 0.0 % (0.0-3.0) % (0.0-3.0) % (0.0-3.0) Basophils (%) (Auto) 0.5 % (0.0-2.0) % (0.0-2.0) % (0.0-2.0) Prothrombin Time 10.5 SEC (9.30-11.50) Prothromb Time International Ratio 1.0 (0.9-1.1) Activated Partial Thromboplast Time 41 SEC (23-33) Sodium Level 132 mEQ/L (135-145) 132 mEQ/L (135-145) 135 mEQ/L (135-145) Potassium Level 5.5 mEQ/L (3.4-4.9) 5.1 mEQ/L (3.4-4.9) 4.9 mEQ/L (3.4-4.9) Chloride Level 99 mEQ/L (98-107) 103 mEQ/L (98-107) 105 mEQ/L (98-107) Carbon Dioxide Level 20 mEQ/L (20-30) 17 mEQ/L (20-30) 17 mEQ/L (20-30) Anion Gap 13 (5-15) 12 (5-15) 13 (5-15) Blood Urea Nitrogen 34 mg/dL (7-23) 29 mg/dL (7-23) 31 mg/dL (7-23) Creatinine 0.6 mg/dL (0.5-0.9) 0.5 mg/dL (0.5-0.9) 0.6 mg/dL (0.5-0.9) Estimat Glomerular Filtration Rate > 60 mL/min (>60) > 60 mL/min (>60) > 60 mL/min (>60) Glucose Level 152 mg/dL (74-106) 84 mg/dL (74-106) 249 mg/dL (74-106) Lactic Acid Level 1.80 mmol/L (0.66-2.22) Calcium Level 6.9 mg/dL (8.6-10.2) 6.6 mg/dL (8.6-10.2) 6.7 mg/dL (8.6-10.2) Total Bilirubin 0.3 mg/dL (0.0-1.2) Aspartate Amino Transf (AST/SGOT) 16 U/L (5-40) Alanine Aminotransferase (ALT/SGPT) 8 U/L (3-33) Alkaline Phosphatase 102 U/L (35-104) Total Creatine Kinase 21 U/L (26-140) Creatine Kinase MB 1.8 ng/mL (< 3.8) Creatine Kinase MB Relative Index 8.5 Troponin I < 0.30 ng/mL (<=0.30) Total Protein 5.2 g/dL (6.6-8.7) Albumin 1.8 g/dL (3.5-5.2) Globulin 3.4 g/dL Albumin/Globulin Ratio 0.5 (1.0-2.7) Differential Total Cells Counted 100 100 Neutrophils % (Manual) 74 % (45-75) 85 % (45-75) Lymphocytes % (Manual) 7 % (20-45) 4 % (20-45) Monocytes % (Manual) 3 % (1-10) 2 % (1-10) Eosinophils % (Manual) 0 % (0-3) 0 % (0-3) Basophils % (Manual) 0 % (0-2) 0 % (0-2) Metamyelocytes % 9 % (0-0) Band Neutrophils 7 % (0-8) 9 % (0-8) Other Cell Type Pathologist comment Platelet Estimate Adequate Adequate Platelet Morphology Normal Normal Polychromasia 1+ 1+ Hypochromasia 1+ Anisocytosis 1+ 1+ [place] Cells 1+ 1+ Acanthocytes 1+ Promyelocytes % 1 % (0-0) Schistocytes 1+ Vancomycin Level Trough 21.5 ug/mL (5.0-12.0) Objective: WDWN chronically ill and poorly responsive coarse breath sounds bilaterally [id number] without MRG NABS nontender no HSM; GT no CC noted edema poor LOC trach Micro: Microbiology Date/Time Source Procedure Growth Status 02/11/17 17:45 Blood Blood Culture - Preliminary NO GROWTH AFTER 24 HOURS Resulted 02/11/17 17:30 Blood Blood Culture - Preliminary NO GROWTH AFTER 24 HOURS Resulted 02/11/17 17:05 Urine,Clean Catch Urine Culture - Preliminary Yeast Species Resulted Accucheck: 264 AMALIA HUGO Feb 13, 2017 14:58
--- NOTE | 2017-02-13 16:24 | Emergency Room Report ---
History of Present Illness General Chief Complaint: Dyspnea/Respdistress Source: Patient, EMS Present Illness Allergies: Coded Allergies: No Known Allergies (Unverified , 02/11/17) Nursing Documentation-[facility] Past Medical History: No History, Except For Hx Hypertension: Yes Hx Pacemaker: No - ANEMIA Hx Diabetes: Yes Hx Cancer: Yes - LEFT BREAST Hx Gastrointestinal Problems: No - with gastrostomy Hx Seizures: No - ON VENT Physical Exam Vital Signs Date Time Temp Pulse Resp B/P (MAP) Pulse Ox O2 Delivery O2 Flow Rate FiO2 02/11/17 16:42 118 20 108/54 100 Mechanical Ventilator 02/11/17 16:45 100 02/11/17 17:00 100.9 15.0 Procedures CPR/Code Blue CPR/Code Blue Narrative 66-year-old female, sepsis, trached I got called in for CODE BLUE. Compressions ongoing, patient being bagged through trach Patient lost pulses while while being cleaned by nursing staff Asystole with initial rhythm CPR for 6 minutes epi x 2 given Rosc achieved, +palpable pulse Sinus tachycardia, 98 on 100% O2 Medical Decision Making Diagnostic Impression: Primary Impression: Septic shock Last Vital Signs Date Time Temp Pulse Resp B/P (MAP) Pulse Ox O2 Delivery O2 Flow Rate FiO2 02/13/17 15:05 107 36 40 02/13/17 15:00 123/46 100 Mechanical Ventilator 02/13/17 12:00 98.2 02/11/17 20:45 15.0 Disposition: ADMITTED INPATIENT Condition: Critical Referrals: AMALIA HUGO (PCP) Ysabel Thapa M.D. Feb 13, 2017 16:24
--- NOTE | 2017-02-13 16:30 | Consultation ---
DATE OF CONSULTATION: 02/13/2017 INFECTIOUS DISEASE CONSULTATION This consult is for coverage of Dr. Rivera. PRIMARY ATTENDING PHYSICIAN: Gunner Mak M.D. REASON FOR CONSULTATION: Sepsis and aspiration pneumonia. History Of Present Illness: The patient is a 66-year-old female admitted [facility] with decreasing in O2 saturation. The patient has leukocytosis and fever, has a temperature of 100.9 in the hospital. In the snf, it was noticed that the patient have gastric content in tracheostomy site and the patient was suspected to have aspiration pneumonitis. Past Medical History: Chronic respiratory failure status post tracheostomy. The patient is status post PEG. She has history of metastatic breast cancer, diabetes mellitus, anemia, pressure ulcer at the presentation with more severe in the sacral area. Medications: Getting vancomycin, sodium chloride, Alphagan eyedrops, dorzolamide eyedrops, heparin, aspirin, ferrous sulfate, Levemir insulin, Prevacid, Ambien, Zosyn, lorazepam, Mylanta, and Zofran. The patient was supposed to have norepinephrine, but the blood pressure went up with hydration. ALLERGIES: No known drug allergies. Social History: halfway resident. No other history is obtainable. PHYSICAL EXAMINATION: Vital Signs: Temperature currently is 98 degrees, pulse is 115, and blood pressure 103/82. HEAD AND NECK: Status post tracheostomy. Heart: Tachycardic. There is a Port-A-Cath in the right side of the chest. Lungs: The patient is on mechanical ventilator. Have bilateral rhonchi. ABDOMEN: Soft. There is a G-tube feeding. EXTREMITIES: Has generalized edema. Skin: Have pressure ulcer, the worst one is in the sacral area stage 4. Laboratory Data: WBC is 25.4, hemoglobin 8.2, hematocrit 24.4, and platelets is 242,000. Sodium 132, potassium 5.2, chloride 103, bicarbonate 17, BUN 29, creatinine 0.5. Chest x-ray showed bilateral effusion, bilateral edema. CT scan of the abdomen and pelvis, consolidation of anterior right lower lobe that is suspected of pneumonia, cholelithiasis, and anasarca. IMPRESSION: 1. Sepsis. 2. Aspiration pneumonia. 3. Stage 4 pressure ulcer. 4. Ventilator-dependent respiratory failure. 5. Diabetes mellitus. 6. Anemia. 7. History of metastatic breast cancer. Recommendations: We will continue with vancomycin and Zosyn. We will ask for respiratory culture. We will follow up the current cultures. At the end of my exam, I thank Dr. Mak for involving me in the care of this patient. Dakota Viera M.D. DR: МАРИНА JOB#: [id number] CC:
[2017-02-13] MEDS: Dyna-Hex 2% Top Sol 2oz TOPIC SCH (20:45)
[2017-02-13] MEDS: Vancomycin 500mg/D5W 110ml IVPB SCH ×2 (22:13)
[2017-02-13] MEDS: LORazepam 0.5mg tab GT PRN (23:45)
[2017-02-14] VITALS (24 sets, daily range): BP systolic 88–136; BP diastolic 14–84
[2017-02-14] MEDS: Piperacillin/Tazobactam 3.375 GM in D5W 110 ML IVPB SCH ×2 (01:59→09:13)
[2017-02-14 05:22] LABS: MEAN CORPUSCULAR HEMOGLOBIN 30.8 PG (27.0-31.0); MEAN CORPUSCULAR HGB CONC 33.1 G/DL (32.0-36.0); MEAN CORPUSCULAR VOLUME 93 FL (80-99); MEAN PLATELET VOLUME 7.8 FL (6.5-10.1); PLATELET COUNT 359 K/UL (150-450); RED BLOOD COUNT 2.63 M/UL (4.20-5.40)
[2017-02-14 05:35] LABS: WHITE BLOOD COUNT 40.2 K/UL (4.8-10.8)
[2017-02-14 05:46] LABS: ANION GAP 12 (5-15); CALCIUM 6.7 mg/dL (8.6-10.2); CARBON DIOXIDE 16 mEQ/L (20-30); CHLORIDE 108 mEQ/L (98-107); CREATININE 0.6 mg/dL (0.5-0.9); GLOMERULAR FILTRATION RATE > 60 mL/min (>60); HEMOLYSIS 1; POTASSIUM 4.9 mEQ/L (3.4-4.9); SODIUM 136 mEQ/L (135-145)
[2017-02-14] MEDS: NovoLOG Insulin Flexpen SUBQ SCH ×4 (06:19→20:45)
[2017-02-14] MEDS: Brimonidine 0.2% Opth Sol RIGHT EYE SCH ×3 (06:20→21:35)
[2017-02-14] MEDS: Dorzolamide 2% 10ml Btl RIGHT EYE SCH ×3 (06:27→21:35)
[2017-02-14 08:46] LABS: ANISOCYTOSIS 1+; BAND NEUTROPHILS % (MANUAL) 10 % (0-8); BASOPHILS % (MANUAL) 0 % (0-2); EOSINOPHILS % (MANUAL) 0 % (0-3); LYMPHOCYTES % (MANUAL) 1 % (20-45); METAMYELOCYTES % 1 % (0-0); NEUTROPHILS % (MANUAL) 84 % (45-75); NUCLEATED RED BLOOD CELLS 1 /100 WBC; PLATELET ESTIMATE ADEQUATE; PLATELET MORPHOLOGY NORMAL; TOTAL CELLS COUNTED 100
[2017-02-14] MEDS ORDERED: D5W 275ml ONE (09:02)
[2017-02-14] MEDS ORDERED: NS 275ml ONE ×2 (09:02)
[2017-02-14] MEDS ORDERED: Tubing IV Secondary IV ONE ×2 (09:02)
[2017-02-14] MEDS: Aspirin Baby 81mg GT SCH (09:12)
[2017-02-14] MEDS: Ferrous Sulfate 300 MG/5 ML UDC GT SCH ×3 (09:12→17:22)
[2017-02-14] MEDS: Docusate 100mg/10ml Liq GT SCH (09:12)
[2017-02-14] MEDS: Vancomycin 500mg/D5W 110ml IVPB SCH ×4 (09:13→21:35)
[2017-02-14] MEDS: Heparin 5000 units/ml inj SUBQ SCH ×2 (09:14→17:22)
[2017-02-14] MEDS: Levemir Flexpen SUBQ SCH ×2 (09:16→17:29)
[2017-02-14] MEDS: Acetaminophen 650mg/20.3ml GT PRN (10:35)
--- NOTE | 2017-02-14 12:20 | Infectious Diseases Prog Note ---
Assessment/Plan Assessment/Plan antibiotics : vancomycin iv, zosyn A 1. aspiration pneumonia 2. UTI 3. increasing leucocytosis 4. metastatic breast cancer 5. respiratory failure P 1. continue iv vancomycin 2. d/c zosyn 3. start meropenem 4. will follow up cultures Subjective ROS Limited/Unobtainable: Yes Allergies: Coded Allergies: No Known Allergies (Unverified , 02/11/17) Objective Vital Signs Last 24 Hour Vital Signs Date Time Temp Pulse Resp B/P (MAP) Pulse Ox O2 Delivery O2 Flow Rate FiO2 02/14/17 11:05 98.0 02/14/17 11:00 130 24 113/80 100 Mechanical Ventilator 40 02/14/17 10:50 141 25 40 02/14/17 10:00 105 24 116/84 100 Mechanical Ventilator 40 02/14/17 09:36 127 27 40 02/14/17 09:00 108 23 100/60 100 Mechanical Ventilator 40 02/14/17 08:00 122 02/14/17 08:00 98.0 106 32 97/56 100 Mechanical Ventilator 40 02/14/17 08:00 40 02/14/17 07:00 112 24 106/75 100 Mechanical Ventilator 40 02/14/17 06:53 123 26 40 02/14/17 06:00 110 32 100/54 100 Mechanical Ventilator 40 02/14/17 05:16 106 27 40 02/14/17 05:00 97.5 106 32 97/56 100 Mechanical Ventilator 40 02/14/17 04:00 50 02/14/17 04:00 108 02/14/17 04:00 107 32 100/35 100 Mechanical Ventilator 40 02/14/17 03:14 103 32 40 02/14/17 03:00 104 32 120/53 100 Mechanical Ventilator 40 02/14/17 02:00 107 32 100/35 100 Mechanical Ventilator 40 02/14/17 01:06 109 28 40 02/14/17 01:00 108 32 99/40 100 Mechanical Ventilator 40 02/14/17 00:30 97/54 02/14/17 00:00 50 02/14/17 00:00 100 31 100/50 100 Mechanical Ventilator 40 02/14/17 00:00 108 02/13/17 23:19 112 32 40 02/13/17 23:00 80 30 95/49 100 Mechanical Ventilator 40 02/13/17 22:00 94 30 98/43 100 Mechanical Ventilator 40 02/13/17 21:22 124 31 40 02/13/17 21:00 121 24 121/96 100 Mechanical Ventilator 40 02/13/17 20:00 50 02/13/17 20:00 123 02/13/17 20:00 98.5 123 24 99/53 100 Mechanical Ventilator 40 02/13/17 19:00 120 20 106/63 100 Mechanical Ventilator 40 02/13/17 18:54 127 30 40 02/13/17 18:00 138 19 117/63 100 Mechanical Ventilator 40 02/13/17 17:00 150 20 121/84 100 Mechanical Ventilator 40 02/13/17 16:45 154 29 40 02/13/17 16:00 50 02/13/17 16:00 98.7 104 21 150/70 100 Mechanical Ventilator 40 02/13/17 16:00 110 02/13/17 15:05 107 36 40 02/13/17 15:00 104 22 123/46 100 Mechanical Ventilator 40 02/13/17 14:00 109 26 101/36 100 Mechanical Ventilator 40 02/13/17 13:05 113 32 40 02/13/17 13:00 105 27 109/54 100 Mechanical Ventilator 40 Height (Feet): 5 Height (Inches): 3.00 Weight (Pounds): 250 HEENT: status post trach Respiratory/Chest: lungs clear Cardiovascular: normal rate, regular rhythm, no gallop/murmur Abdomen: soft, non tender, other - GT Extremities: other - + edema Microbiology Date/Time Source Procedure Growth Status 02/11/17 17:45 Blood Blood Culture - Preliminary NO GROWTH AFTER 48 HOURS Resulted 02/11/17 17:30 Blood Blood Culture - Preliminary NO GROWTH AFTER 48 HOURS Resulted 02/11/17 20:30 Nasal Nares MRSA Culture - Final NO METHICILLIN RESISTANT STAPH AUREUS... Complete 02/11/17 17:05 Urine,Clean Catch Urine Culture - Final Mixed Urogenital Contaminants Complete 02/11/17 20:30 Rectum VRE Culture - Final Enterococcus Faecium - Vre Complete Laboratory Tests Test 02/14/17 04:40 White Blood Count 40.2 K/UL (4.8-10.8) *H Red Blood Count 2.63 M/UL (4.20-5.40) L Hemoglobin 8.1 G/DL (12.0-16.0) L Hematocrit 24.5 % (37.0-47.0) L Mean Corpuscular Volume 93 FL (80-99) Mean Corpuscular Hemoglobin 30.8 PG (27.0-31.0) Mean Corpuscular Hemoglobin Concent 33.1 G/DL (32.0-36.0) Red Cell Distribution Width 17.0 % (11.6-14.8) H Platelet Count 359 K/UL (150-450) Mean Platelet Volume 7.8 FL (6.5-10.1) Neutrophils (%) (Auto) % (45.0-75.0) Lymphocytes (%) (Auto) % (20.0-45.0) Monocytes (%) (Auto) % (1.0-10.0) Eosinophils (%) (Auto) % (0.0-3.0) Basophils (%) (Auto) % (0.0-2.0) Differential Total Cells Counted 100 Neutrophils % (Manual) 84 % (45-75) H Lymphocytes % (Manual) 1 % (20-45) L Monocytes % (Manual) 4 % (1-10) Eosinophils % (Manual) 0 % (0-3) Basophils % (Manual) 0 % (0-2) Metamyelocytes % 1 % (0-0) H Band Neutrophils 10 % (0-8) H Nucleated Red Blood Cells 1 /100 WBC Platelet Estimate Adequate Platelet Morphology Normal Anisocytosis 1+ Sodium Level 136 mEQ/L (135-145) Potassium Level 4.9 mEQ/L (3.4-4.9) Chloride Level 108 mEQ/L (98-107) H Carbon Dioxide Level 16 mEQ/L (20-30) L Anion Gap 12 (5-15) Blood Urea Nitrogen 35 mg/dL (7-23) H Creatinine 0.6 mg/dL (0.5-0.9) Estimat Glomerular Filtration Rate > 60 mL/min (>60) Glucose Level 259 mg/dL (74-106) H Calcium Level 6.7 mg/dL (8.6-10.2) L TERRY CH Feb 14, 2017 12:20
--- NOTE | 2017-02-14 14:02 | Critical Care Progress Note ---
Assessment/Plan Assessment/Plan IMPRESSION Sepsis respiratory failure anasarca CRF possible gastroparesis metastatic breast ca leukocytosis PLAN prognosis poor maintain meds feeds ID evaluation appreciated empiric antibiotics followup imaging and labs followup cultures check ABG d/w family as to code status- still full Critical Care - Subjective Interval Events: spoke to family aware of poor prognosis and code blue Condition: critical I&O: Intake and Output 02/14/17 02/15/17 19:00 07:00 Intake Total 400 ml Output Total 180 ml Balance 220 ml Free Water 40 ml Tube Feeding 300 ml Other 60 ml Output Urine Total 180 ml Critical Care - Objective Last 24 Hour Vital Signs Date Time Temp Pulse Resp B/P (MAP) Pulse Ox O2 Delivery O2 Flow Rate FiO2 02/14/17 13:23 122 36 40 02/14/17 13:00 120 22 91/21 100 Mechanical Ventilator 40 02/14/17 12:00 40 02/14/17 12:00 98.1 122 32 96/50 100 Mechanical Ventilator 40 02/14/17 12:00 134 02/14/17 11:05 98.0 02/14/17 11:00 130 24 113/80 100 Mechanical Ventilator 40 02/14/17 10:50 141 25 40 02/14/17 10:00 105 24 116/84 100 Mechanical Ventilator 40 02/14/17 09:36 127 27 40 02/14/17 09:00 108 23 100/60 100 Mechanical Ventilator 40 02/14/17 08:00 122 02/14/17 08:00 98.0 106 32 97/56 100 Mechanical Ventilator 40 02/14/17 08:00 40 02/14/17 07:00 112 24 106/75 100 Mechanical Ventilator 40 02/14/17 06:53 123 26 40 02/14/17 06:00 110 32 100/54 100 Mechanical Ventilator 40 02/14/17 05:16 106 27 40 02/14/17 05:00 97.5 106 32 97/56 100 Mechanical Ventilator 40 02/14/17 04:00 50 02/14/17 04:00 108 02/14/17 04:00 107 32 100/35 100 Mechanical Ventilator 40 02/14/17 03:14 103 32 40 02/14/17 03:00 104 32 120/53 100 Mechanical Ventilator 40 02/14/17 02:00 107 32 100/35 100 Mechanical Ventilator 40 02/14/17 01:06 109 28 40 02/14/17 01:00 108 32 99/40 100 Mechanical Ventilator 40 02/14/17 00:30 97/54 02/14/17 00:00 50 02/14/17 00:00 100 31 100/50 100 Mechanical Ventilator 40 02/14/17 00:00 108 02/13/17 23:19 112 32 40 02/13/17 23:00 80 30 95/49 100 Mechanical Ventilator 40 02/13/17 22:00 94 30 98/43 100 Mechanical Ventilator 40 02/13/17 21:22 124 31 40 02/13/17 21:00 121 24 121/96 100 Mechanical Ventilator 40 02/13/17 20:00 50 02/13/17 20:00 123 02/13/17 20:00 98.5 123 24 99/53 100 Mechanical Ventilator 40 02/13/17 19:00 120 20 106/63 100 Mechanical Ventilator 40 02/13/17 18:54 127 30 40 02/13/17 18:00 138 19 117/63 100 Mechanical Ventilator 40 02/13/17 17:00 150 20 121/84 100 Mechanical Ventilator 40 02/13/17 16:45 154 29 40 02/13/17 16:00 50 02/13/17 16:00 98.7 104 21 150/70 100 Mechanical Ventilator 40 02/13/17 16:00 110 02/13/17 15:05 107 36 40 02/13/17 15:00 104 22 123/46 100 Mechanical Ventilator 40 Labs: Laboratory Tests Test 02/14/17 04:40 White Blood Count 40.2 K/UL (4.8-10.8) *H Red Blood Count 2.63 M/UL (4.20-5.40) L Hemoglobin 8.1 G/DL (12.0-16.0) L Hematocrit 24.5 % (37.0-47.0) L Mean Corpuscular Volume 93 FL (80-99) Mean Corpuscular Hemoglobin 30.8 PG (27.0-31.0) Mean Corpuscular Hemoglobin Concent 33.1 G/DL (32.0-36.0) Red Cell Distribution Width 17.0 % (11.6-14.8) H Platelet Count 359 K/UL (150-450) Mean Platelet Volume 7.8 FL (6.5-10.1) Neutrophils (%) (Auto) % (45.0-75.0) Lymphocytes (%) (Auto) % (20.0-45.0) Monocytes (%) (Auto) % (1.0-10.0) Eosinophils (%) (Auto) % (0.0-3.0) Basophils (%) (Auto) % (0.0-2.0) Differential Total Cells Counted 100 Neutrophils % (Manual) 84 % (45-75) H Lymphocytes % (Manual) 1 % (20-45) L Monocytes % (Manual) 4 % (1-10) Eosinophils % (Manual) 0 % (0-3) Basophils % (Manual) 0 % (0-2) Metamyelocytes % 1 % (0-0) H Band Neutrophils 10 % (0-8) H Nucleated Red Blood Cells 1 /100 WBC Platelet Estimate Adequate Platelet Morphology Normal Anisocytosis 1+ Sodium Level 136 mEQ/L (135-145) Potassium Level 4.9 mEQ/L (3.4-4.9) Chloride Level 108 mEQ/L (98-107) H Carbon Dioxide Level 16 mEQ/L (20-30) L Anion Gap 12 (5-15) Blood Urea Nitrogen 35 mg/dL (7-23) H Creatinine 0.6 mg/dL (0.5-0.9) Estimat Glomerular Filtration Rate > 60 mL/min (>60) Glucose Level 259 mg/dL (74-106) H Calcium Level 6.7 mg/dL (8.6-10.2) L Objective: WDWN chronically ill and poorly responsive coarse breath sounds bilaterally [id number] without MRG NABS nontender no HSM; GT no CC noted edema poor LOC trach Micro: Microbiology Date/Time Source Procedure Growth Status 02/11/17 17:45 Blood Blood Culture - Preliminary NO GROWTH AFTER 48 HOURS Resulted 02/11/17 17:30 Blood Blood Culture - Preliminary NO GROWTH AFTER 48 HOURS Resulted 02/13/17 10:30 Sputum Gram Stain - Final Complete 02/13/17 10:30 Sputum Sputum Culture - Final Complete 02/11/17 20:30 Nasal Nares MRSA Culture - Final NO METHICILLIN RESISTANT STAPH AUREUS... Complete 02/11/17 17:05 Urine,Clean Catch Urine Culture - Final Mixed Urogenital Contaminants Complete 02/11/17 20:30 Rectum VRE Culture - Final Enterococcus Faecium - Vre Complete Accucheck: 293 AMALIA HUGO Feb 14, 2017 14:02
[2017-02-14 14:12] LABS: APPEARANCE,URINE TURBID; KETONES,URINE NEGATIVE (NEGATIVE); LEUKOCYTE ESTERASE ,URINE 1+ (NEGATIVE); NITRITE,URINE NEGATIVE (NEGATIVE); PH,URINE 5 (4.5-8.0); PROTEIN,URINE 2+ (NEGATIVE); UROBILINOGEN,URINE NORMAL MG/DL (0.0-1.0)
[2017-02-14 14:54] LABS: BACTERIA,URINE MANY /HPF; RBC,URINE 0-2 /HPF (0 - 2); SQUAMOUS EPITHELIAL CELL,UR FEW /LPF (NONE/OCC); YEAST,URINE MODERATE /HPF
[2017-02-14 15:24] LABS: ABG ALLEN TEST POSITIVE; ABG BASE EXCESS -8.8; ABG PCO2 34.9 mmHg (35.0-45.0)
[2017-02-14] MEDS: Meropenem 1 GM in NS 110 ML IVPB SCH ×2 (15:50→21:35)
[2017-02-14] MEDS ORDERED: Morphine Sulfate 10mg/ml Inj IVP PRN (18:30)
[2017-02-14] MEDS ORDERED: Morphine Sulfate 4mg/ml Inj IVP PRN (18:30)
[2017-02-14] MEDS: Morphine Sulfate 2mg/ml Inj IVP PRN ×2 (18:35→22:56)
[2017-02-14] MEDS: Dyna-Hex 2% Top Sol 2oz TOPIC SCH (20:40)
[2017-02-15] VITALS (24 sets, daily range): BP systolic 90–129; BP diastolic 33–71
[2017-02-15] MEDS: Morphine Sulfate 2mg/ml Inj IVP PRN (04:38)
[2017-02-15] MEDS: Meropenem 1 GM in NS 110 ML IVPB SCH ×3 (05:34→21:40)
[2017-02-15] MEDS: Brimonidine 0.2% Opth Sol RIGHT EYE SCH ×3 (05:35→21:40)
[2017-02-15] MEDS: Dorzolamide 2% 10ml Btl RIGHT EYE SCH ×3 (05:35→21:40)
[2017-02-15] MEDS: NovoLOG Insulin Flexpen SUBQ SCH ×3 (06:42→17:31)
[2017-02-15 07:32] LABS: MEAN CORPUSCULAR HEMOGLOBIN 28.5 PG (27.0-31.0); MEAN CORPUSCULAR HGB CONC 30.4 G/DL (32.0-36.0); MEAN CORPUSCULAR VOLUME 94 FL (80-99); MEAN PLATELET VOLUME 7.7 FL (6.5-10.1); PLATELET COUNT 362 K/UL (150-450); RED CELL DISTRIBUTION WIDTH 17.3 % (11.6-14.8)
[2017-02-15 07:41] LABS: WHITE BLOOD COUNT 38.8 K/UL (4.8-10.8)
[2017-02-15] MEDS: Acetaminophen 650mg/20.3ml GT PRN (09:16)
[2017-02-15] MEDS: Docusate 100mg/10ml Liq GT SCH (09:17)
[2017-02-15] MEDS: Vancomycin 500mg/D5W 110ml IVPB SCH ×2 (09:17)
[2017-02-15] MEDS: Ferrous Sulfate 300 MG/5 ML UDC GT SCH ×3 (09:17→17:24)
[2017-02-15] MEDS: Levemir Flexpen SUBQ SCH ×2 (09:18→17:31)
[2017-02-15] MEDS: Heparin 5000 units/ml inj SUBQ SCH ×2 (09:19→17:32)
[2017-02-15] MEDS: Aspirin Baby 81mg GT SCH (09:19)
[2017-02-15 09:28] LABS: ACANTHOCYTES 1+; ANISOCYTOSIS 1+; BAND NEUTROPHILS % (MANUAL) 7 % (0-8); BASOPHILS % (MANUAL) 0 % (0-2); BLISTER CELL 1+; EOSINOPHILS % (MANUAL) 0 % (0-3); HYPOCHROMASIA 1+; LYMPHOCYTES % (MANUAL) 2 % (20-45); METAMYELOCYTES % 2 % (0-0); NEUTROPHILS % (MANUAL) 88 % (45-75); NUCLEATED RED BLOOD CELLS 1 /100 WBC; PLATELET ESTIMATE ADEQUATE; PLATELET MORPHOLOGY NORMAL; TOTAL CELLS COUNTED 100
[2017-02-15 09:29] LABS: BURR CELLS 1+
--- NOTE | 2017-02-15 09:34 | Critical Care Progress Note ---
Assessment/Plan Assessment/Plan IMPRESSION Sepsis respiratory failure anasarca CRF possible gastroparesis metastatic breast ca leukocytosis PLAN prognosis poor maintain meds feeds ID evaluation appreciated empiric antibiotics followup imaging and labs followup cultures reviewed ABG d/w family as to code status- still full Critical Care - Subjective Interval Events: same not improved ROS Limited/Unobtainable: Yes Condition: critical EKG Rhythm: Sinus Tachycardia Critical Care - Objective Last 24 Hour Vital Signs Date Time Temp Pulse Resp B/P (MAP) Pulse Ox O2 Delivery O2 Flow Rate FiO2 02/15/17 07:00 135 33 106/33 99 Mechanical Ventilator 40 02/15/17 07:00 126 22 40 02/15/17 06:00 138 26 99/63 99 Mechanical Ventilator 40 02/15/17 05:29 135 27 40 02/15/17 05:00 132 30 106/59 99 Mechanical Ventilator 40 02/15/17 04:00 99.8 127 36 129/42 100 Mechanical Ventilator 40 02/15/17 04:00 40 02/15/17 03:23 132 35 40 02/15/17 03:17 133 02/15/17 03:00 127 31 107/63 98 Mechanical Ventilator 40 02/15/17 02:00 123 28 123/58 99 Mechanical Ventilator 40 02/15/17 01:53 121 25 40 02/15/17 01:00 124 25 105/57 98 Mechanical Ventilator 40 02/15/17 00:30 111/56 02/15/17 00:00 40 02/15/17 00:00 99.5 120 27 111/56 98 Mechanical Ventilator 40 02/14/17 23:30 118 29 40 02/14/17 23:22 118 02/14/17 23:00 118 33 88/14 98 Mechanical Ventilator 40 02/14/17 22:00 120 30 91/40 99 Mechanical Ventilator 40 02/14/17 21:29 120 29 40 02/14/17 21:00 120 27 104/49 99 Mechanical Ventilator 40 02/14/17 20:00 40 02/14/17 20:00 99.9 136 28 93/51 99 Mechanical Ventilator 40 02/14/17 19:36 135 02/14/17 19:10 157 32 40 02/14/17 19:05 98.2 02/14/17 19:00 140 21 130/51 100 Mechanical Ventilator 40 02/14/17 18:00 140 21 136/64 100 Mechanical Ventilator 40 02/14/17 17:10 138 30 40 02/14/17 17:00 108 22 92/30 100 Mechanical Ventilator 40 02/14/17 16:00 143 02/14/17 16:00 98.2 107 21 93/57 100 Mechanical Ventilator 40 02/14/17 16:00 40 02/14/17 15:19 120 34 40 02/14/17 15:00 122 22 97/47 100 Mechanical Ventilator 40 02/14/17 14:00 118 23 101/41 100 Mechanical Ventilator 40 02/14/17 13:23 122 36 40 02/14/17 13:00 120 22 91/21 100 Mechanical Ventilator 40 02/14/17 12:00 40 02/14/17 12:00 98.1 122 32 96/50 100 Mechanical Ventilator 40 02/14/17 12:00 134 02/14/17 11:05 98.0 02/14/17 11:00 130 24 113/80 100 Mechanical Ventilator 40 02/14/17 10:50 141 25 40 02/14/17 10:00 105 24 116/84 100 Mechanical Ventilator 40 02/14/17 09:36 127 27 40 Objective: WDWN chronically ill and poorly responsive coarse breath sounds bilaterally [id number] without MRG NABS nontender no HSM; GT no CC noted edema poor LOC trach Micro: Microbiology Date/Time Source Procedure Growth Status 02/13/17 10:30 Sputum Gram Stain - Final Resulted 02/13/17 10:30 Sputum Culture - Preliminary Gram Negative Adryan Resulted Accucheck: 200 AMALIA HUGO Feb 15, 2017 09:34
[2017-02-15] MEDS ORDERED: Sterile Water Irrig 1000ml IRRIG ONE (16:09)
[2017-02-15] MEDS ORDERED: Tubing IV Secondary IV ONE (16:09)
[2017-02-15] MEDS ORDERED: NS 275ml ONE (16:09)
[2017-02-15] MEDS: Dyna-Hex 2% Top Sol 2oz TOPIC SCH (21:16)
[2017-02-16] VITALS (24 sets, daily range): BP systolic 85–141; BP diastolic 40–93
[2017-02-16] MEDS: Meropenem 1 GM in NS 110 ML IVPB SCH ×3 (05:41→21:38)
[2017-02-16] MEDS: Dorzolamide 2% 10ml Btl RIGHT EYE SCH ×3 (05:42→21:38)
[2017-02-16] MEDS: Brimonidine 0.2% Opth Sol RIGHT EYE SCH ×3 (05:42→21:38)
[2017-02-16] MEDS: NovoLOG Insulin Flexpen SUBQ SCH ×5 (05:46→23:48)
[2017-02-16] MEDS: Acetaminophen 650mg/20.3ml GT PRN ×2 (07:32→17:48)
--- NOTE | 2017-02-16 07:40 | Infectious Diseases Prog Note ---
Assessment/Plan Assessment/Plan A 1. aspiration pneumonia 2. Anasarca 3. leucocytosis 4. metastatic breast cancer 5. respiratory failure 6. VRE colonization P 1. continue iv vancomycin & meropenem 2. will follow up cultures Subjective ROS Limited/Unobtainable: Yes Constitutional: Reports: fever, other - T [id number] Allergies: Coded Allergies: No Known Allergies (Unverified , 02/11/17) Objective Vital Signs Last 24 Hour Vital Signs Date Time Temp Pulse Resp B/P (MAP) Pulse Ox O2 Delivery O2 Flow Rate FiO2 02/16/17 07:00 113 30 113/50 100 Mechanical Ventilator 40 02/16/17 06:57 114 35 40 02/16/17 06:00 118 36 141/93 100 Mechanical Ventilator 40 02/16/17 05:26 111 39 40 02/16/17 05:00 109 31 136/73 100 Mechanical Ventilator 40 02/16/17 04:00 40 02/16/17 04:00 98.8 105 35 85/46 100 Mechanical Ventilator 40 02/16/17 03:31 104 02/16/17 03:19 102 29 40 02/16/17 03:00 102 25 129/74 100 Mechanical Ventilator 40 02/16/17 02:00 101 24 131/40 100 Mechanical Ventilator 40 02/16/17 01:28 95 27 40 02/16/17 01:00 97 26 123/65 100 Mechanical Ventilator 40 02/16/17 00:30 119/53 02/16/17 00:00 98.4 99 25 123/54 100 Mechanical Ventilator 40 02/16/17 00:00 40 02/15/17 23:51 98 02/15/17 23:24 98 21 40 02/15/17 23:00 97 24 127/69 100 Mechanical Ventilator 40 02/15/17 22:00 99 25 119/53 100 Mechanical Ventilator 40 02/15/17 21:13 99 31 40 02/15/17 21:00 99 27 123/53 100 Mechanical Ventilator 40 02/15/17 20:00 40 02/15/17 20:00 98.6 102 29 90/43 100 Mechanical Ventilator 40 02/15/17 19:37 103 22 40 02/15/17 19:35 104 02/15/17 19:00 96 22 122/53 100 Mechanical Ventilator 40 02/15/17 18:00 104 22 120/55 100 Mechanical Ventilator 40 02/15/17 17:05 105 20 40 02/15/17 17:00 104 21 120/36 100 Mechanical Ventilator 40 02/15/17 16:00 40 02/15/17 16:00 99.0 105 24 121/71 100 Mechanical Ventilator 40 02/15/17 16:00 109 02/15/17 15:00 109 23 40 02/15/17 15:00 109 25 116/52 100 Mechanical Ventilator 40 02/15/17 14:00 101 32 107/66 100 Mechanical Ventilator 40 02/15/17 13:00 112 25 40 02/15/17 13:00 109 19 108/36 100 Mechanical Ventilator 40 02/15/17 12:00 99.6 108 17 119/57 100 Mechanical Ventilator 40 02/15/17 12:00 117 02/15/17 12:00 40 02/15/17 11:00 112 17 107/46 100 Mechanical Ventilator 40 02/15/17 11:00 113 24 40 02/15/17 10:00 116 30 108/54 100 Mechanical Ventilator 40 02/15/17 09:54 100.0 02/15/17 09:00 116 23 40 02/15/17 09:00 121 30 111/61 99 Mechanical Ventilator 40 02/15/17 08:00 118 02/15/17 08:00 100.0 129 28 115/63 99 Mechanical Ventilator 40 02/15/17 08:00 40 Height (Feet): 5 Height (Inches): 3.00 Weight (Pounds): 152 HEENT: status post trach Respiratory/Chest: respiratory distress, decreased breath sounds, other - on ventilator Cardiovascular: tachycardia, other - Portacath Abdomen: soft, non tender, other - GT feeding Extremities: other - generalized edema Microbiology Date/Time Source Procedure Growth Status 02/13/17 10:30 Sputum Gram Stain - Final Resulted 02/13/17 10:30 Sputum Culture - Preliminary Gram Negative Adryan Resulted 02/14/17 13:00 Indwelling Cath Urine Culture - Preliminary NO GROWTH Resulted Laboratory Tests Test 02/15/17 21:05 Vancomycin Level Trough 30.2 ug/mL (5.0-12.0) H Current Medications Medications (Trade) Dose Ordered Sig/Colleen Route PRN Reason Start Time Stop Time Status Last Admin Dose Admin Acetaminophen (Tylenol) 650 mg Q4H PRN GT Mild Pain/Temp > 100.5 02/11/17 22:45 03/13/17 22:44 02/16/17 07:32 Al Hydroxide/Mg Hydroxide (Mylanta) 30 ml Q4H PRN GT Abdominal cramps 02/11/17 22:45 03/13/17 22:44 02/15/17 17:24 Aspirin (ASA) 81 mg DAILY GT 02/12/17 09:00 03/14/17 08:59 02/15/17 09:19 Brimonidine Tartrate (Alphagan) 1 drop Q8HR RIGHT EYE 02/12/17 14:00 03/14/17 13:59 02/16/17 05:42 Chlorhexidine Gluconate (Patricia-Hex 2%) 1 applic QHS TOPIC 02/13/17 21:00 03/15/17 20:59 02/15/17 21:16 Dextrose (Dextrose 50%) STAT PRN IV Hypoglycemia 02/11/17 23:15 03/13/17 23:14 Docusate Sodium (Colace) 100 mg DAILY GT 02/12/17 09:00 03/14/17 08:59 02/15/17 09:17 Dorzolamide HCl (Trusopt) 1 drop EVERY 8 HOURS RIGHT EYE 02/12/17 14:00 03/14/17 13:59 02/16/17 05:42 Ferrous Sulfate (Feosol) 300 mg THREE TIMES A DAY GT 02/12/17 09:00 03/14/17 08:59 02/15/17 17:24 Heparin Sodium (Porcine) (Heparin 5000 units/ml) 5,000 units BID SUBQ 02/12/17 09:00 03/14/17 08:59 02/15/17 17:32 Insulin Aspart (NovoLOG) BS 150-199 GIVE 1 UNIT... EVERY 6 HOURS SUBQ 02/15/17 12:00 03/14/17 06:29 02/16/17 05:46 Insulin Detemir (Levemir) 5 units BID SUBQ 02/12/17 09:00 03/14/17 08:59 02/15/17 17:31 Lansoprazole (Prevacid) 30 mg DAILY GT 02/12/17 09:00 03/14/17 08:59 02/15/17 09:17 Lorazepam (Ativan) 0.5 mg Q4H PRN GT For Anxiety 02/11/17 23:45 02/18/17 23:44 02/13/17 23:45 Meropenem 1 gm/ Sodium Chloride 110 ml @ 220 mls/hr Q8HR IVPB 02/14/17 14:30 02/19/17 14:29 02/16/17 05:41 Morphine Sulfate (Morphine Sulfate) 2 mg Q3H PRN IVP Mild Pain (Pain Scale 1-3) 02/14/17 18:30 02/21/17 18:29 02/15/17 04:38 Morphine Sulfate (Morphine Sulfate) 4 mg Q3H PRN IVP Moderate Pain (Pain Scale 4-6) 02/14/17 18:30 02/21/17 18:29 Morphine Sulfate (Morphine Sulfate) 6 mg Q3H PRN IVP Severe Pain (Pain Scale 7-10) 02/14/17 18:30 02/21/17 18:29 Norepinephrine Bitartrate 4 mg/ Dextrose 250 ml @ 0 mls/hr Q24H IV 02/12/17 00:30 03/14/17 00:29 Ondansetron HCl (Zofran) 4 mg Q6H PRN IVP Nausea & Vomiting 02/11/17 22:45 03/13/17 22:44 Sodium Chloride 1,000 ml @ 100 mls/hr Q10H IV 02/12/17 15:00 03/14/17 14:59 02/15/17 22:42 Vancomycin HCl (Vanco rx to dose) 1 ea DAILY PRN MISC Per rx protocol 02/11/17 22:45 02/18/17 22:44 Zolpidem Tartrate (Ambien) 5-10mg HSPRN PRN GT Insomnia 02/12/17 06:00 02/19/17 05:59 SEVERINO MOREL Feb 16, 2017 07:40
[2017-02-16] MEDS: Ferrous Sulfate 300 MG/5 ML UDC GT SCH ×3 (09:04→17:48)
[2017-02-16] MEDS: Aspirin Baby 81mg GT SCH (09:04)
[2017-02-16] MEDS: Docusate 100mg/10ml Liq GT SCH (09:04)
[2017-02-16] MEDS: Heparin 5000 units/ml inj SUBQ SCH ×2 (09:05→20:31)
[2017-02-16] MEDS: Levemir Flexpen SUBQ SCH ×2 (09:06→17:50)
--- NOTE | 2017-02-16 10:15 | Critical Care Progress Note ---
Assessment/Plan Assessment/Plan IMPRESSION Sepsis respiratory failure anasarca CRF possible gastroparesis metastatic breast ca leukocytosis acidemia PLAN prognosis poor maintain meds feeds ID evaluation appreciated IV antibiotics followup imaging and labs followup final cultures nutrition as able d/w family as to code status- still full Critical Care - Subjective Interval Events: withdrawn ROS Limited/Unobtainable: Yes Condition: critical EKG Rhythm: Sinus Tachycardia I&O: Intake and Output 02/16/17 02/17/17 19:00 07:00 Intake Total 230 ml Output Total 60 ml Balance 170 ml IV Total 100 ml Tube Feeding 100 ml Other 30 ml Output Urine Total 60 ml Critical Care - Objective Last 24 Hour Vital Signs Date Time Temp Pulse Resp B/P (MAP) Pulse Ox O2 Delivery O2 Flow Rate FiO2 02/16/17 09:29 108 34 40 02/16/17 09:00 106 27 124/71 100 Mechanical Ventilator 40 02/16/17 08:00 98.2 112 32 94/50 100 Mechanical Ventilator 40 02/16/17 08:00 40 02/16/17 08:00 112 02/16/17 07:00 113 30 113/50 100 Mechanical Ventilator 40 02/16/17 06:57 114 35 40 02/16/17 06:00 118 36 141/93 100 Mechanical Ventilator 40 02/16/17 05:26 111 39 40 02/16/17 05:00 109 31 136/73 100 Mechanical Ventilator 40 02/16/17 04:00 40 02/16/17 04:00 98.8 105 35 85/46 100 Mechanical Ventilator 40 02/16/17 03:31 104 02/16/17 03:19 102 29 40 02/16/17 03:00 102 25 129/74 100 Mechanical Ventilator 40 02/16/17 02:00 101 24 131/40 100 Mechanical Ventilator 40 02/16/17 01:28 95 27 40 02/16/17 01:00 97 26 123/65 100 Mechanical Ventilator 40 02/16/17 00:30 119/53 02/16/17 00:00 98.4 99 25 123/54 100 Mechanical Ventilator 40 02/16/17 00:00 40 02/15/17 23:51 98 02/15/17 23:24 98 21 40 02/15/17 23:00 97 24 127/69 100 Mechanical Ventilator 40 02/15/17 22:00 99 25 119/53 100 Mechanical Ventilator 40 02/15/17 21:13 99 31 40 02/15/17 21:00 99 27 123/53 100 Mechanical Ventilator 40 02/15/17 20:00 40 02/15/17 20:00 98.6 102 29 90/43 100 Mechanical Ventilator 40 02/15/17 19:37 103 22 40 02/15/17 19:35 104 02/15/17 19:00 96 22 122/53 100 Mechanical Ventilator 40 02/15/17 18:00 104 22 120/55 100 Mechanical Ventilator 40 02/15/17 17:05 105 20 40 02/15/17 17:00 104 21 120/36 100 Mechanical Ventilator 40 02/15/17 16:00 40 02/15/17 16:00 99.0 105 24 121/71 100 Mechanical Ventilator 40 02/15/17 16:00 109 02/15/17 15:00 109 23 40 02/15/17 15:00 109 25 116/52 100 Mechanical Ventilator 40 02/15/17 14:00 101 32 107/66 100 Mechanical Ventilator 40 02/15/17 13:00 112 25 40 02/15/17 13:00 109 19 108/36 100 Mechanical Ventilator 40 02/15/17 12:00 99.6 108 17 119/57 100 Mechanical Ventilator 40 02/15/17 12:00 117 02/15/17 12:00 40 02/15/17 11:00 112 17 107/46 100 Mechanical Ventilator 40 02/15/17 11:00 113 24 40 Labs: Labs Test 02/14/17 04:40 02/14/17 13:00 02/14/17 15:20 02/15/17 05:00 White Blood Count 40.2 K/UL (4.8-10.8) 38.8 K/UL (4.8-10.8) Red Blood Count 2.63 M/UL (4.20-5.40) 2.80 M/UL (4.20-5.40) Hemoglobin 8.1 G/DL (12.0-16.0) 8.0 G/DL (12.0-16.0) Hematocrit 24.5 % (37.0-47.0) 26.2 % (37.0-47.0) Mean Corpuscular Volume 93 FL (80-99) 94 FL (80-99) Mean Corpuscular Hemoglobin 30.8 PG (27.0-31.0) 28.5 PG (27.0-31.0) Mean Corpuscular Hemoglobin Concent 33.1 G/DL (32.0-36.0) 30.4 G/DL (32.0-36.0) Red Cell Distribution Width 17.0 % (11.6-14.8) 17.3 % (11.6-14.8) Platelet Count 359 K/UL (150-450) 362 K/UL (150-450) Mean Platelet Volume 7.8 FL (6.5-10.1) 7.7 FL (6.5-10.1) Neutrophils (%) (Auto) % (45.0-75.0) % (45.0-75.0) Lymphocytes (%) (Auto) % (20.0-45.0) % (20.0-45.0) Monocytes (%) (Auto) % (1.0-10.0) % (1.0-10.0) Eosinophils (%) (Auto) % (0.0-3.0) % (0.0-3.0) Basophils (%) (Auto) % (0.0-2.0) % (0.0-2.0) Differential Total Cells Counted 100 100 Neutrophils % (Manual) 84 % (45-75) 88 % (45-75) Lymphocytes % (Manual) 1 % (20-45) 2 % (20-45) Monocytes % (Manual) 4 % (1-10) 1 % (1-10) Eosinophils % (Manual) 0 % (0-3) 0 % (0-3) Basophils % (Manual) 0 % (0-2) 0 % (0-2) Metamyelocytes % 1 % (0-0) 2 % (0-0) Band Neutrophils 10 % (0-8) 7 % (0-8) Nucleated Red Blood Cells 1 /100 WBC 1 /100 WBC Platelet Estimate Adequate Adequate Platelet Morphology Normal Normal Anisocytosis 1+ 1+ Sodium Level 136 mEQ/L (135-145) Potassium Level 4.9 mEQ/L (3.4-4.9) Chloride Level 108 mEQ/L (98-107) Carbon Dioxide Level 16 mEQ/L (20-30) Anion Gap 12 (5-15) Blood Urea Nitrogen 35 mg/dL (7-23) Creatinine 0.6 mg/dL (0.5-0.9) Estimat Glomerular Filtration Rate > 60 mL/min (>60) Glucose Level 259 mg/dL (74-106) Calcium Level 6.7 mg/dL (8.6-10.2) Urine Color Yellow Urine Appearance Turbid Urine pH 5 (4.5-8.0) Urine Specific [place] 1.015 (1.005-1.035) Urine Protein 2+ (NEGATIVE) Urine Glucose (UA) 1+ (NEGATIVE) Urine Ketones Negative (NEGATIVE) Urine Occult Blood 1+ (NEGATIVE) Urine Nitrite Negative (NEGATIVE) Urine Bilirubin Negative (NEGATIVE) Urine Urobilinogen Normal MG/DL (0.0-1.0) Urine Leukocyte Esterase 1+ (NEGATIVE) Urine RBC 0-2 /HPF (0 - 2) Urine WBC 5-10 /HPF (0 - 2) Urine Squamous Epithelial Cells Few /LPF (NONE/OCC) Urine Bacteria Many /HPF (NONE) Urine Yeast Moderate /HPF (NONE) Arterial Blood pH 7.300 (7.350-7.450) Arterial Blood Partial Pressure CO2 34.9 mmHg (35.0-45.0) Arterial Blood Partial Pressure O2 110.2 mmHg (75.0-100.0) Arterial Blood HCO3 16.8 mmol/L (22.0-26.0) Arterial Blood Oxygen Saturation 97.8 % (92.0-98.0) Arterial Blood Base Excess -8.8 Mark Test Positive Hypochromasia 1+ Blister Cells 1+ Makenna Cells 1+ Acanthocytes 1+ Test 02/15/17 21:05 02/16/17 09:00 Vancomycin Level Trough 30.2 ug/mL (5.0-12.0) Objective: WDWN chronically ill and poorly responsive coarse breath sounds bilaterally [id number] without MRG NABS nontender no HSM; GT no CC noted edema poor LOC trach Micro: Microbiology Date/Time Source Procedure Growth Status 02/13/17 10:30 Sputum Gram Stain - Final Resulted 02/13/17 10:30 Sputum Culture - Preliminary Gram Negative Adryan Gram Negative Bacillus 2 Resulted 02/14/17 13:00 Indwelling Cath Urine Culture - Preliminary Yeast Species Resulted Accucheck: 242 AMALIA HUGO Feb 16, 2017 10:15
[2017-02-16] MEDS ORDERED: Tubing IV Secondary IV ONE (15:58)
[2017-02-16] MEDS: Dyna-Hex 2% Top Sol 2oz TOPIC SCH (20:15)
[2017-02-16] MEDS: Morphine Sulfate 2mg/ml Inj IVP PRN (20:16)
[2017-02-17] VITALS (24 sets, daily range): BP systolic 101–128; BP diastolic 7–94
[2017-02-17] MEDS: Dorzolamide 2% 10ml Btl RIGHT EYE SCH ×3 (05:50→22:16)
[2017-02-17] MEDS: Meropenem 1 GM in NS 110 ML IVPB SCH ×3 (05:50→22:15)
[2017-02-17] MEDS: Brimonidine 0.2% Opth Sol RIGHT EYE SCH ×3 (05:50→22:15)
[2017-02-17] MEDS: NovoLOG Insulin Flexpen SUBQ SCH ×4 (05:51→23:37)
[2017-02-17] MEDS: LORazepam 0.5mg tab GT PRN (08:21)
[2017-02-17] MEDS: Aspirin Baby 81mg GT SCH (08:21)
[2017-02-17] MEDS: Docusate 100mg/10ml Liq GT SCH (08:21)
[2017-02-17] MEDS: Ferrous Sulfate 300 MG/5 ML UDC GT SCH ×3 (08:21→18:21)
[2017-02-17] MEDS: Levemir Flexpen SUBQ SCH ×2 (08:27→18:24)
[2017-02-17] MEDS: Heparin 5000 units/ml inj SUBQ SCH ×2 (08:27→20:59)
[2017-02-17 09:00] LABS: ABG PCO2 41.1 mmHg (35.0-45.0)
[2017-02-17 09:01] LABS: ABG ALLEN TEST POSITIVE; ABG BASE EXCESS -8.6
[2017-02-17] MEDS: Morphine Sulfate 2mg/ml Inj IVP PRN (09:02)
--- NOTE | 2017-02-17 09:04 | Critical Care Progress Note ---
Assessment/Plan Assessment/Plan IMPRESSION Sepsis respiratory failure anasarca CRF possible gastroparesis metastatic breast ca leukocytosis acidemia PLAN prognosis poor maintain meds feeds ID evaluation appreciated IV antibiotics followup imaging and labs followup final cultures nutrition as able adjust ventilator follow up ABG d/w family as to code status- still full Critical Care - Subjective ROS Limited/Unobtainable: Yes Condition: critical EKG Rhythm: Sinus Tachycardia Residuals: minimal Tube Feeding Tolerated: yes Critical Care - Objective Last 24 Hour Vital Signs Date Time Temp Pulse Resp B/P (MAP) Pulse Ox O2 Delivery O2 Flow Rate FiO2 02/17/17 08:47 115 33 40 02/17/17 08:00 40 02/17/17 07:03 103 28 40 02/17/17 07:00 103 29 122/59 100 Mechanical Ventilator 40 02/17/17 06:00 103 22 115/61 100 Mechanical Ventilator 40 02/17/17 05:01 99 27 40 02/17/17 05:00 103 22 110/59 100 Mechanical Ventilator 40 02/17/17 04:06 104 02/17/17 04:00 98.4 105 29 120/64 100 Mechanical Ventilator 40 02/17/17 04:00 40 02/17/17 03:30 101 22 40 02/17/17 03:00 102 24 109/85 100 Mechanical Ventilator 40 02/17/17 02:00 102 27 101/89 100 Mechanical Ventilator 40 02/17/17 01:30 102 24 40 02/17/17 01:00 100 26 103/74 100 Mechanical Ventilator 40 02/17/17 00:30 113/43 02/17/17 00:00 99.0 101 22 113/43 100 Mechanical Ventilator 40 02/17/17 00:00 100 02/17/17 00:00 40 02/16/17 23:27 100 22 40 02/16/17 23:00 102 22 105/58 100 Mechanical Ventilator 40 02/16/17 22:00 104 25 105/57 100 Mechanical Ventilator 40 02/16/17 21:30 102 26 40 02/16/17 21:00 114 25 105/57 100 Mechanical Ventilator 40 02/16/17 20:00 40 02/16/17 20:00 99.2 107 29 115/64 100 Mechanical Ventilator 40 02/16/17 19:57 107 02/16/17 19:30 111 32 40 02/16/17 19:00 108 29 106/66 100 Mechanical Ventilator 40 02/16/17 18:00 106 26 103/55 100 Mechanical Ventilator 40 02/16/17 17:02 108 29 40 02/16/17 17:00 104 23 111/54 100 Mechanical Ventilator 40 02/16/17 16:00 106 02/16/17 16:00 98.2 106 21 128/61 100 Mechanical Ventilator 40 02/16/17 16:00 40 02/16/17 15:00 107 24 104/52 100 Mechanical Ventilator 40 02/16/17 14:38 104 29 40 02/16/17 14:00 112 25 136/63 100 Mechanical Ventilator 40 02/16/17 13:00 102 25 129/66 100 Mechanical Ventilator 40 02/16/17 12:42 102 21 40 02/16/17 12:00 98.1 101 23 114/65 100 Mechanical Ventilator 40 02/16/17 12:00 40 02/16/17 12:00 103 02/16/17 11:17 107 25 40 02/16/17 11:00 106 24 105/64 100 Mechanical Ventilator 40 02/16/17 10:00 107 30 117/68 100 Mechanical Ventilator 40 02/16/17 09:29 108 34 40 Labs: Labs Test 02/14/17 13:00 02/14/17 15:20 02/15/17 05:00 02/15/17 21:05 Urine Color Yellow Urine Appearance Turbid Urine pH 5 (4.5-8.0) Urine Specific [place] 1.015 (1.005-1.035) Urine Protein 2+ (NEGATIVE) Urine Glucose (UA) 1+ (NEGATIVE) Urine Ketones Negative (NEGATIVE) Urine Occult Blood 1+ (NEGATIVE) Urine Nitrite Negative (NEGATIVE) Urine Bilirubin Negative (NEGATIVE) Urine Urobilinogen Normal MG/DL (0.0-1.0) Urine Leukocyte Esterase 1+ (NEGATIVE) Urine RBC 0-2 /HPF (0 - 2) Urine WBC 5-10 /HPF (0 - 2) Urine Squamous Epithelial Cells Few /LPF (NONE/OCC) Urine Bacteria Many /HPF (NONE) Urine Yeast Moderate /HPF (NONE) Arterial Blood pH 7.300 (7.350-7.450) Arterial Blood Partial Pressure CO2 34.9 mmHg (35.0-45.0) Arterial Blood Partial Pressure O2 110.2 mmHg (75.0-100.0) Arterial Blood HCO3 16.8 mmol/L (22.0-26.0) Arterial Blood Oxygen Saturation 97.8 % (92.0-98.0) Arterial Blood Base Excess -8.8 Mark Test Positive White Blood Count 38.8 K/UL (4.8-10.8) Red Blood Count 2.80 M/UL (4.20-5.40) Hemoglobin 8.0 G/DL (12.0-16.0) Hematocrit 26.2 % (37.0-47.0) Mean Corpuscular Volume 94 FL (80-99) Mean Corpuscular Hemoglobin 28.5 PG (27.0-31.0) Mean Corpuscular Hemoglobin Concent 30.4 G/DL (32.0-36.0) Red Cell Distribution Width 17.3 % (11.6-14.8) Platelet Count 362 K/UL (150-450) Mean Platelet Volume 7.7 FL (6.5-10.1) Neutrophils (%) (Auto) % (45.0-75.0) Lymphocytes (%) (Auto) % (20.0-45.0) Monocytes (%) (Auto) % (1.0-10.0) Eosinophils (%) (Auto) % (0.0-3.0) Basophils (%) (Auto) % (0.0-2.0) Differential Total Cells Counted 100 Neutrophils % (Manual) 88 % (45-75) Lymphocytes % (Manual) 2 % (20-45) Monocytes % (Manual) 1 % (1-10) Eosinophils % (Manual) 0 % (0-3) Basophils % (Manual) 0 % (0-2) Metamyelocytes % 2 % (0-0) Band Neutrophils 7 % (0-8) Nucleated Red Blood Cells 1 /100 WBC Platelet Estimate Adequate Platelet Morphology Normal Hypochromasia 1+ Anisocytosis 1+ Blister Cells 1+ Makenna Cells 1+ Acanthocytes 1+ Vancomycin Level Trough 30.2 ug/mL (5.0-12.0) Test 02/16/17 09:00 02/17/17 08:40 Random Vancomycin Level 27.7 ug/mL Arterial Blood pH 7.258 (7.350-7.450) Arterial Blood Partial Pressure CO2 41.1 mmHg (35.0-45.0) Arterial Blood Partial Pressure O2 84.5 mmHg (75.0-100.0) Arterial Blood HCO3 17.9 mmol/L (22.0-26.0) Arterial Blood Oxygen Saturation 95.8 % (92.0-98.0) Arterial Blood Base Excess -8.6 Mark Test Positive Objective: WDWN chronically ill and poorly responsive coarse breath sounds bilaterally [id number] tachy without MRG NABS nontender no HSM; GT no CC noted edema poor LOC trach Micro: Microbiology Date/Time Source Procedure Growth Status 02/14/17 13:00 Indwelling Cath Urine Culture - Preliminary YEAST Resulted Accucheck: 175 AMALIA HUGO Feb 17, 2017 09:04
[2017-02-17] MEDS ORDERED: NS 275ml ONE (11:17)
--- NOTE | 2017-02-17 13:30 | Infectious Diseases Prog Note ---
"Assessment/Plan Assessment/Plan antibiotics : vancomycin iv, meropenem A 1. aspiration pneumonia with klebsiella | proteus 2. fungal UTI 3. leucocytosis improving 4. metastatic breast cancer 5. respiratory failure 6. anasarca P 1. d/c iv vancomycin 2. continue meropenem 3. start fluconazole 4. will follow up cultures Subjective ROS Limited/Unobtainable: Yes Allergies: Coded Allergies: No Known Allergies (Unverified , 02/11/17) Objective Vital Signs Last 24 Hour Vital Signs Date Time Temp Pulse Resp B/P (MAP) Pulse Ox O2 Delivery O2 Flow Rate FiO2 02/17/17 13:00 98 22 124/58 100 Mechanical Ventilator 40 02/17/17 12:32 96 21 40 02/17/17 12:00 98.3 95 23 106/57 100 Mechanical Ventilator 40 02/17/17 12:00 40 02/17/17 12:00 95 02/17/17 11:13 97 26 40 02/17/17 11:00 95 21 106/66 100 Mechanical Ventilator 40 02/17/17 10:00 99 21 106/61 100 Mechanical Ventilator 40 02/17/17 09:16 108 02/17/17 09:00 104 32 107/57 100 Mechanical Ventilator 40 02/17/17 08:47 115 33 40 02/17/17 08:00 98.4 110 33 114/67 98 Mechanical Ventilator 40 02/17/17 08:00 40 02/17/17 07:03 103 28 40 02/17/17 07:00 103 29 122/59 100 Mechanical Ventilator 40 02/17/17 06:00 103 22 115/61 100 Mechanical Ventilator 40 02/17/17 05:01 99 27 40 02/17/17 05:00 103 22 110/59 100 Mechanical Ventilator 40 02/17/17 04:06 104 02/17/17 04:00 98.4 105 29 120/64 100 Mechanical Ventilator 40 02/17/17 04:00 40 02/17/17 03:30 101 22 40 02/17/17 03:00 102 24 109/85 100 Mechanical Ventilator 40 02/17/17 02:00 102 27 101/89 100 Mechanical Ventilator 40 02/17/17 01:30 102 24 40 02/17/17 01:00 100 26 103/74 100 Mechanical Ventilator 40 02/17/17 00:30 113/43 02/17/17 00:00 99.0 101 22 113/43 100 Mechanical Ventilator 40 02/17/17 00:00 100 02/17/17 00:00 40 02/16/17 23:27 100 22 40 02/16/17 23:00 102 22 105/58 100 Mechanical Ventilator 40 02/16/17 22:00 104 25 105/57 100 Mechanical Ventilator 40 02/16/17 21:30 102 26 40 02/16/17 21:00 114 25 105/57 100 Mechanical Ventilator 40 02/16/17 20:00 40 02/16/17 20:00 99.2 107 29 115/64 100 Mechanical Ventilator 40 02/16/17 19:57 107 02/16/17 19:30 111 32 40 02/16/17 19:00 108 29 106/66 100 Mechanical Ventilator 40 02/16/17 18:00 106 26 103/55 100 Mechanical Ventilator 40 02/16/17 17:02 108 29 40 02/16/17 17:00 104 23 111/54 100 Mechanical Ventilator 40 02/16/17 16:00 106 02/16/17 16:00 98.2 106 21 128/61 100 Mechanical Ventilator 40 02/16/17 16:00 40 02/16/17 15:00 107 24 104/52 100 Mechanical Ventilator 40 02/16/17 14:38 104 29 40 02/16/17 14:00 112 25 136/63 100 Mechanical Ventilator 40 Height (Feet): 5 Height (Inches): 3.00 Weight (Pounds): 165 HEENT: status post trach Respiratory/Chest: lungs clear Cardiovascular: normal rate, regular rhythm, no gallop/murmur Abdomen: soft, non tender, other - GT Extremities: other - + edema, right subclavian catheter Laboratory Tests Test 02/17/17 08:40 Arterial Blood pH 7.258 (7.350-7.450) Arterial Blood Partial Pressure CO2 41.1 mmHg (35.0-45.0) Arterial Blood Partial Pressure O2 84.5 mmHg (75.0-100.0) Arterial Blood HCO3 17.9 mmol/L (22.0-26.0) L Arterial Blood Oxygen Saturation 95.8 % (92.0-98.0) Arterial Blood Base Excess -8.6 Mark Test Positive TERRY CH Feb 17, 2017 13:29"
[2017-02-17] MEDS: Fluconazole 100mg tab ORAL SCH (14:35)
[2017-02-17] MEDS: Dyna-Hex 2% Top Sol 2oz TOPIC SCH (20:58)
[2017-02-18] VITALS (24 sets, daily range): BP systolic 89–137; BP diastolic 47–95
[2017-02-18 05:23] LABS: MEAN CORPUSCULAR HEMOGLOBIN 28.9 PG (27.0-31.0); MEAN CORPUSCULAR HGB CONC 30.7 G/DL (32.0-36.0); MEAN CORPUSCULAR VOLUME 94 FL (80-99); MEAN PLATELET VOLUME 8.2 FL (6.5-10.1); PLATELET COUNT 295 K/UL (150-450); RED BLOOD COUNT 2.66 M/UL (4.20-5.40); RED CELL DISTRIBUTION WIDTH 17.1 % (11.6-14.8); WHITE BLOOD COUNT 21.2 K/UL (4.8-10.8)
[2017-02-18 05:33] LABS: ALANINE AMINOTRANSFERASE 5 U/L (3-33); ALBUMIN/GLOBULIN RATIO 0.3 (1.0-2.7); ANION GAP 14 (5-15); ASPARTATE AMINO TRANSFERASE 16 U/L (5-40); CALCIUM 6.6 mg/dL (8.6-10.2); CARBON DIOXIDE 15 mEQ/L (20-30); CHLORIDE 111 mEQ/L (98-107); HEMOLYSIS 11; SODIUM 140 mEQ/L (135-145); TOTAL PROTEIN 4.3 g/dL (6.6-8.7)
[2017-02-18] MEDS: Brimonidine 0.2% Opth Sol RIGHT EYE SCH ×3 (05:41→22:11)
[2017-02-18] MEDS: Dorzolamide 2% 10ml Btl RIGHT EYE SCH ×3 (05:41→22:11)
[2017-02-18] MEDS: Meropenem 1 GM in NS 110 ML IVPB SCH ×3 (05:41→22:10)
[2017-02-18] MEDS: NovoLOG Insulin Flexpen SUBQ SCH ×3 (05:42→17:45)
[2017-02-18 05:47] LABS: POTASSIUM 6.8 mEQ/L (3.4-4.9)
[2017-02-18 06:11] LABS: CREATININE 0.6 mg/dL (0.5-0.9); GLOMERULAR FILTRATION RATE > 60 mL/min (>60)
[2017-02-18 08:33] LABS: BAND NEUTROPHILS % (MANUAL) 6 % (0-8); LYMPHOCYTES % (MANUAL) 5 % (20-45); METAMYELOCYTES % 1 % (0-0); NEUTROPHILS % (MANUAL) 85 % (45-75); NUCLEATED RED BLOOD CELLS 3 /100 WBC; TOTAL CELLS COUNTED 100
[2017-02-18 08:34] LABS: ANISOCYTOSIS 1+; BASOPHILS % (MANUAL) 0 % (0-2); EOSINOPHILS % (MANUAL) 0 % (0-3); PLATELET ESTIMATE ADEQUATE; PLATELET MORPHOLOGY NORMAL
[2017-02-18 08:35] LABS: HYPOCHROMASIA 1+
[2017-02-18] MEDS: Heparin 5000 units/ml inj SUBQ SCH ×2 (09:00→20:44)
[2017-02-18] MEDS: Aspirin Baby 81mg GT SCH (09:00)
[2017-02-18] MEDS: Docusate 100mg/10ml Liq GT SCH (09:00)
--- NOTE | 2017-02-18 09:02 | Critical Care Progress Note ---
Assessment/Plan Assessment/Plan IMPRESSION Sepsis respiratory failure anasarca CRF possible gastroparesis metastatic breast ca leukocytosis acidemia hyperkalemia anemia PLAN prognosis poor maintain meds feeds ID evaluation noted IV antibiotics followup imaging and labs followup final cultures nutrition as able adjust ventilator follow up ABG- noted; repeat kayexalate IV hydration feeds transfusion needed d/w family as to code status- still full Critical Care - Subjective Interval Events: events noted elevated K reduced HH ROS Limited/Unobtainable: Yes Condition: critical I&O: Intake and Output 02/18/17 02/19/17 19:00 07:00 Intake Total 90 ml Output Total 15 ml Balance 75 ml Free Water 40 ml Tube Feeding 50 ml Output Urine Total 15 ml Critical Care - Objective Last 24 Hour Vital Signs Date Time Temp Pulse Resp B/P (MAP) Pulse Ox O2 Delivery O2 Flow Rate FiO2 02/18/17 08:01 40 02/18/17 08:00 88 02/18/17 08:00 98.5 92 30 109/56 100 Mechanical Ventilator 40 02/18/17 07:01 97 25 40 02/18/17 07:00 91 20 111/95 100 Mechanical Ventilator 40 02/18/17 06:00 88 20 89/61 100 Mechanical Ventilator 40 02/18/17 05:00 88 20 97/55 100 Mechanical Ventilator 40 02/18/17 04:52 91 22 40 02/18/17 04:00 91 02/18/17 04:00 99.0 93 20 124/60 100 Mechanical Ventilator 40 02/18/17 04:00 40 02/18/17 03:30 95 30 40 02/18/17 03:00 100 20 122/47 100 Mechanical Ventilator 40 02/18/17 02:00 90 20 122/64 100 Mechanical Ventilator 40 02/18/17 01:18 91 21 40 02/18/17 01:00 91 20 121/55 100 Mechanical Ventilator 40 02/18/17 00:30 117/51 02/18/17 00:00 98.8 93 24 117/51 100 Mechanical Ventilator 40 02/18/17 00:00 40 02/18/17 00:00 96 02/17/17 23:26 93 20 40 02/17/17 23:00 94 25 123/58 100 Mechanical Ventilator 40 02/17/17 22:00 98 27 112/50 100 Mechanical Ventilator 40 9/18/17 21:06 100 24 40 /18/17 21:00 99.1 97 20 109/57 100 Mechanical Ventilator 40 18/17 20:00 99.5 99 20 116/62 100 Mechanical Ventilator 40 18/17 20:00 99 /18/17 20:00 40 /18/17 19:30 102 27 40 18/17 19:00 99 20 127/76 100 Mechanical Ventilator 40 18/17 18:00 100 21 119/82 100 Mechanical Ventilator 40 18/17 17:13 105 28 40 18/17 17:00 102 26 127/94 100 Mechanical Ventilator 40 18/17 16:00 101 18/17 16:00 98.8 109 32 128/64 99 Mechanical Ventilator 40 02/17/17 15:59 40 18/17 15:15 98 22 40 18/17 15:00 100 22 121/52 100 Mechanical Ventilator 40 18/17 14:00 97 23 117/75 100 Mechanical Ventilator 40 18/17 13:00 98 22 124/58 100 Mechanical Ventilator 40 18/17 12:32 96 21 40 18/17 12:00 98.3 95 23 106/57 100 Mechanical Ventilator 40 18/17 12:00 40 18/17 12:00 95 18/17 11:13 97 26 40 18/17 11:00 95 21 106/66 100 Mechanical Ventilator 40 18/17 10:00 99 21 106/61 100 Mechanical Ventilator 40 17 09:16 108 Objective: WDWN chronically ill and poorly responsive coarse breath sounds bilaterally [id number] without MRG NABS nontender no HSM; GT no CC noted edema poor LOC trach Accucheck: 174 AMALIA HUGO Feb 18, 2017 09:02
[2017-02-18] MEDS: Ferrous Sulfate 300 MG/5 ML UDC GT SCH ×3 (09:46→17:44)
[2017-02-18] MEDS: Ascorbic Acid 500mg tab ORAL SCH (09:46)
[2017-02-18] MEDS: Fluconazole 100mg tab ORAL SCH (09:46)
[2017-02-18] MEDS: Levemir Flexpen SUBQ SCH ×3 (09:50→20:45)
[2017-02-18 09:52] LABS: ABG ALLEN TEST POSITIVE; ABG PCO2 29.4 mmHg (35.0-45.0)
[2017-02-18] MEDS ORDERED: Sodium Polystyrene Sulfonate 15gm Powder ORAL ONE (10:30)
--- NOTE | 2017-02-18 11:21 | Infectious Diseases Prog Note ---
Assessment/Plan Assessment/Plan A 1. aspiration pneumonia 2. Anasarca 3. leucocytosis improving 4. metastatic breast cancer 5. respiratory failure 6. VRE colonization 7. Fungal UTI P 1. continue Fluconazole & meropenem 2. will follow up cultures Subjective ROS Limited/Unobtainable: Yes Allergies: Coded Allergies: No Known Allergies (Unverified , 02/11/17) Objective Vital Signs Last 24 Hour Vital Signs Date Time Temp Pulse Resp B/P (MAP) Pulse Ox O2 Delivery O2 Flow Rate FiO2 02/18/17 11:12 97 25 40 02/18/17 11:00 82 23 111/64 100 Mechanical Ventilator 40 02/18/17 10:00 86 20 109/67 100 Mechanical Ventilator 40 02/18/17 09:20 89 22 40 02/18/17 09:00 89 22 113/67 100 Mechanical Ventilator 40 02/18/17 08:01 40 02/18/17 08:00 88 02/18/17 08:00 98.5 92 30 109/56 100 Mechanical Ventilator 40 02/18/17 07:01 97 25 40 02/18/17 07:00 91 20 111/95 100 Mechanical Ventilator 40 02/18/17 06:00 88 20 89/61 100 Mechanical Ventilator 40 02/18/17 05:00 88 20 97/55 100 Mechanical Ventilator 40 02/18/17 04:52 91 22 40 02/18/17 04:00 91 02/18/17 04:00 99.0 93 20 124/60 100 Mechanical Ventilator 40 02/18/17 04:00 40 02/18/17 03:30 95 30 40 02/18/17 03:00 100 20 122/47 100 Mechanical Ventilator 40 02/18/17 02:00 90 20 122/64 100 Mechanical Ventilator 40 02/18/17 01:18 91 21 40 02/18/17 01:00 91 20 121/55 100 Mechanical Ventilator 40 02/18/17 00:30 117/51 02/18/17 00:00 98.8 93 24 117/51 100 Mechanical Ventilator 40 02/18/17 00:00 40 02/18/17 00:00 96 02/17/17 23:26 93 20 40 02/17/17 23:00 94 25 123/58 100 Mechanical Ventilator 40 02/17/17 22:00 98 27 112/50 100 Mechanical Ventilator 40 02/17/17 21:06 100 24 40 02/17/17 21:00 99.1 97 20 109/57 100 Mechanical Ventilator 40 02/17/17 20:00 99.5 99 20 116/62 100 Mechanical Ventilator 40 02/17/17 20:00 99 02/17/17 20:00 40 02/17/17 19:30 102 27 40 02/17/17 19:00 99 20 127/76 100 Mechanical Ventilator 40 02/17/17 18:00 100 21 119/82 100 Mechanical Ventilator 40 02/17/17 17:13 105 28 40 02/17/17 17:00 102 26 127/94 100 Mechanical Ventilator 40 02/17/17 16:00 101 02/17/17 16:00 98.8 109 32 128/64 99 Mechanical Ventilator 40 02/17/17 15:59 40 02/17/17 15:15 98 22 40 02/17/17 15:00 100 22 121/52 100 Mechanical Ventilator 40 02/17/17 14:00 97 23 117/75 100 Mechanical Ventilator 40 02/17/17 13:00 98 22 124/58 100 Mechanical Ventilator 40 02/17/17 12:32 96 21 40 02/17/17 12:00 98.3 95 23 106/57 100 Mechanical Ventilator 40 02/17/17 12:00 40 02/17/17 12:00 95 Height (Feet): 5 Height (Inches): 3.00 Weight (Pounds): 164 HEENT: status post trach Respiratory/Chest: lungs clear, other - on ventilator Cardiovascular: normal rate, other - R chest Portacath Abdomen: distended, other - s/p G tube Extremities: other - generalized edema Neurologic/Psychiatric: unresponsiveness Laboratory Tests Test 02/18/17 03:40 02/18/17 09:15 White Blood Count 21.2 K/UL (4.8-10.8) H Red Blood Count 2.66 M/UL (4.20-5.40) L Hemoglobin 7.7 G/DL (12.0-16.0) L Hematocrit 25.1 % (37.0-47.0) L Mean Corpuscular Volume 94 FL (80-99) Mean Corpuscular Hemoglobin 28.9 PG (27.0-31.0) Mean Corpuscular Hemoglobin Concent 30.7 G/DL (32.0-36.0) L Red Cell Distribution Width 17.1 % (11.6-14.8) H Platelet Count 295 K/UL (150-450) Mean Platelet Volume 8.2 FL (6.5-10.1) Neutrophils (%) (Auto) % (45.0-75.0) Lymphocytes (%) (Auto) % (20.0-45.0) Monocytes (%) (Auto) % (1.0-10.0) Eosinophils (%) (Auto) % (0.0-3.0) Basophils (%) (Auto) % (0.0-2.0) Differential Total Cells Counted 100 Neutrophils % (Manual) 85 % (45-75) H Lymphocytes % (Manual) 5 % (20-45) L Monocytes % (Manual) 3 % (1-10) Eosinophils % (Manual) 0 % (0-3) Basophils % (Manual) 0 % (0-2) Metamyelocytes % 1 % (0-0) H Band Neutrophils 6 % (0-8) Nucleated Red Blood Cells 3 /100 WBC Platelet Estimate Adequate Platelet Morphology Normal Hypochromasia 1+ Anisocytosis 1+ Sodium Level 140 mEQ/L (135-145) Potassium Level 6.8 mEQ/L (3.4-4.9) *H Chloride Level 111 mEQ/L (98-107) H Carbon Dioxide Level 15 mEQ/L (20-30) L Anion Gap 14 (5-15) Blood Urea Nitrogen 59 mg/dL (7-23) H Creatinine 0.6 mg/dL (0.5-0.9) Estimat Glomerular Filtration Rate > 60 mL/min (>60) Glucose Level 145 mg/dL (74-106) H Calcium Level 6.6 mg/dL (8.6-10.2) L Total Bilirubin < 0.2 mg/dL (0.0-1.2) Aspartate Amino Transf (AST/SGOT) 16 U/L (5-40) Alanine Aminotransferase (ALT/SGPT) 5 U/L (3-33) Alkaline Phosphatase 133 U/L (35-104) H Total Protein 4.3 g/dL (6.6-8.7) L Albumin 1.0 g/dL (3.5-5.2) L Globulin 3.3 g/dL Albumin/Globulin Ratio 0.3 (1.0-2.7) L Arterial Blood pH 7.369 (7.350-7.450) Arterial Blood Partial Pressure CO2 29.4 mmHg (35.0-45.0) L Arterial Blood Partial Pressure O2 142.6 mmHg (75.0-100.0) H Arterial Blood HCO3 16.6 mmol/L (22.0-26.0) L Arterial Blood Oxygen Saturation 98.6 % (92.0-98.0) H Arterial Blood Base Excess -8.0 Mark Test Positive Current Medications Medications (Trade) Dose Ordered Sig/Colleen Route PRN Reason Start Time Stop Time Status Last Admin Dose Admin Acetaminophen (Tylenol) 650 mg Q4H PRN GT Mild Pain/Temp > 100.5 02/11/17 22:45 03/13/17 22:44 02/16/17 17:48 Al Hydroxide/Mg Hydroxide (Mylanta) 30 ml Q4H PRN GT Abdominal cramps 02/11/17 22:45 03/13/17 22:44 02/15/17 17:24 Ascorbic Acid (Vitamin C) 500 mg DAILY ORAL 02/18/17 09:00 03/20/17 08:59 02/18/17 09:46 Aspirin (ASA) 81 mg DAILY GT 02/12/17 09:00 03/14/17 08:59 02/17/17 08:21 Brimonidine Tartrate (Alphagan) 1 drop Q8HR RIGHT EYE 02/12/17 14:00 03/14/17 13:59 02/18/17 05:41 Chlorhexidine Gluconate (Patricia-Hex 2%) 1 applic QHS TOPIC 02/13/17 21:00 03/15/17 20:59 02/17/17 20:58 Dextrose (Dextrose 50%) STAT PRN IV Hypoglycemia 02/11/17 23:15 03/13/17 23:14 Docusate Sodium (Colace) 100 mg DAILY GT 02/12/17 09:00 03/14/17 08:59 02/17/17 08:21 Dorzolamide HCl (Trusopt) 1 drop EVERY 8 HOURS RIGHT EYE 02/12/17 14:00 03/14/17 13:59 02/18/17 05:41 Ferrous Sulfate (Feosol) 300 mg THREE TIMES A DAY GT 02/12/17 09:00 03/14/17 08:59 02/18/17 09:46 Fluconazole (Diflucan) 100 mg DAILY ORAL 02/17/17 14:30 02/24/17 14:29 02/18/17 09:46 Heparin Sodium (Porcine) (Heparin 5000 units/ml) 5,000 units Q12HR SUBQ 02/16/17 21:00 03/18/17 08:59 02/17/17 20:59 Insulin Aspart (NovoLOG) BS 150-199 GIVE 1 UNIT... EVERY 6 HOURS SUBQ 02/15/17 12:00 03/14/17 06:29 02/18/17 05:42 Insulin Detemir (Levemir) 5 units BID SUBQ 02/12/17 09:00 03/14/17 08:59 02/18/17 09:50 Lansoprazole (Prevacid) 30 mg DAILY GT 02/12/17 09:00 03/14/17 08:59 02/18/17 09:46 Lorazepam (Ativan) 0.5 mg Q4H PRN GT For Anxiety 02/11/17 23:45 02/18/17 23:44 02/17/17 08:21 Meropenem 1 gm/ Sodium Chloride 110 ml @ 220 mls/hr Q8HR IVPB 02/14/17 14:30 02/19/17 14:29 02/18/17 05:41 Morphine Sulfate (Morphine Sulfate) 2 mg Q3H PRN IVP Mild Pain (Pain Scale 1-3) 02/14/17 18:30 02/21/17 18:29 02/17/17 09:02 Morphine Sulfate (Morphine Sulfate) 4 mg Q3H PRN IVP Moderate Pain (Pain Scale 4-6) 02/14/17 18:30 02/21/17 18:29 Morphine Sulfate (Morphine Sulfate) 6 mg Q3H PRN IVP Severe Pain (Pain Scale 7-10) 02/14/17 18:30 02/21/17 18:29 Norepinephrine Bitartrate 4 mg/ Dextrose 250 ml @ 0 mls/hr Q24H IV 02/12/17 00:30 03/14/17 00:29 Ondansetron HCl (Zofran) 4 mg Q6H PRN IVP Nausea & Vomiting 02/11/17 22:45 03/13/17 22:44 Sodium Chloride 1,000 ml @ 100 mls/hr Q10H IV 02/12/17 15:00 03/14/17 14:59 02/18/17 10:32 Zolpidem Tartrate (Ambien) 5-10mg HSPRN PRN GT Insomnia 02/12/17 06:00 02/19/17 05:59 SEVERINO MOREL Feb 18, 2017 11:21
[2017-02-18] MEDS: Dyna-Hex 2% Top Sol 2oz TOPIC SCH (20:46)
[2017-02-18] MEDS ORDERED: NovoLOG Insulin Flexpen SUBQ SCH (21:00)
[2017-02-18] MEDS ORDERED: Levemir Flexpen SUBQ SCH (21:00)
[2017-02-18 21:44] LABS: CALCIUM 6.8 mg/dL (8.6-10.2); CARBON DIOXIDE 17 mEQ/L (20-30); CHLORIDE 112 mEQ/L (98-107); CREATININE 0.6 mg/dL (0.5-0.9); GLOMERULAR FILTRATION RATE > 60 mL/min (>60); HEMOLYSIS 22; SODIUM 140 mEQ/L (135-145)
[2017-02-18 21:50] LABS: ANION GAP 11 (5-15)
[2017-02-18] MEDS ORDERED: Sodium Polystyrene Sulfonate 15gm Powder GT ONE (23:15)
[2017-02-19] VITALS (24 sets, daily range): BP systolic 94–132; BP diastolic 54–90
[2017-02-19] MEDS: NovoLOG Insulin Flexpen SUBQ SCH ×5 (00:08→23:35)
[2017-02-19] MEDS: Dorzolamide 2% 10ml Btl RIGHT EYE SCH ×3 (05:43→22:23)
[2017-02-19] MEDS: Brimonidine 0.2% Opth Sol RIGHT EYE SCH ×3 (05:43→22:24)
[2017-02-19] MEDS: Meropenem 1 GM in NS 110 ML IVPB SCH ×3 (05:43→22:23)
[2017-02-19 06:15] LABS: MEAN CORPUSCULAR HEMOGLOBIN 29.3 PG (27.0-31.0); MEAN CORPUSCULAR VOLUME 89 FL (80-99); MEAN PLATELET VOLUME 6.9 FL (6.5-10.1); PLATELET COUNT 298 K/UL (150-450); RED BLOOD COUNT 4.56 M/UL (4.20-5.40); RED CELL DISTRIBUTION WIDTH 16.1 % (11.6-14.8)
[2017-02-19 06:20] LABS: ANION GAP 12 (5-15); CALCIUM 6.7 mg/dL (8.6-10.2); CARBON DIOXIDE 17 mEQ/L (20-30); CHLORIDE 111 mEQ/L (98-107); CREATININE 0.6 mg/dL (0.5-0.9); GLOMERULAR FILTRATION RATE > 60 mL/min (>60); HEMOLYSIS 93; POTASSIUM 5.6 mEQ/L (3.4-4.9); SODIUM 140 mEQ/L (135-145)
[2017-02-19 06:30] LABS: WHITE BLOOD COUNT 28.8 K/UL (4.8-10.8)
[2017-02-19] MEDS: Aspirin Baby 81mg GT SCH (08:55)
[2017-02-19] MEDS: Levemir Flexpen SUBQ SCH ×2 (08:55→20:50)
[2017-02-19] MEDS: Docusate 100mg/10ml Liq GT SCH (08:56)
[2017-02-19] MEDS: Fluconazole 100mg tab ORAL SCH (08:56)
[2017-02-19] MEDS: Ascorbic Acid 500mg tab ORAL SCH (08:56)
[2017-02-19] MEDS: Ferrous Sulfate 300 MG/5 ML UDC GT SCH ×3 (08:56→17:49)
[2017-02-19] MEDS: Heparin 5000 units/ml inj SUBQ SCH ×2 (08:58→20:49)
[2017-02-19 10:43] LABS: BAND NEUTROPHILS % (MANUAL) 2 % (0-8); BASOPHILS % (MANUAL) 0 % (0-2); EOSINOPHILS % (MANUAL) 1 % (0-3); LYMPHOCYTES % (MANUAL) 3 % (20-45); NEUTROPHILS % (MANUAL) 92 % (45-75); NUCLEATED RED BLOOD CELLS 1 /100 WBC; PLATELET ESTIMATE ADEQUATE; PLATELET MORPHOLOGY NORMAL; TOTAL CELLS COUNTED 100
--- NOTE | 2017-02-19 12:38 | Infectious Diseases Prog Note ---
"Assessment/Plan Assessment/Plan antibiotics : meropenem, fluconazole A 1. aspiration pneumonia with klebsiella | proteus 2. fungal UTI 3. leucocytosis 4. metastatic breast cancer 5. respiratory failure 6. anasarca P 1. continue meropenem 2. continue fluconazole 4 more days 3. will follow up cultures Subjective ROS Limited/Unobtainable: Yes Allergies: Coded Allergies: No Known Allergies (Unverified , 02/11/17) Objective Vital Signs Last 24 Hour Vital Signs Date Time Temp Pulse Resp B/P (MAP) Pulse Ox O2 Delivery O2 Flow Rate FiO2 02/19/17 12:00 98.8 113 20 121/54 96 Mechanical Ventilator 40 02/19/17 11:02 104 27 40 02/19/17 11:00 105 22 109/66 98 Mechanical Ventilator 40 02/19/17 10:00 102 22 110/71 98 Mechanical Ventilator 40 02/19/17 09:22 106 34 40 02/19/17 09:00 101 21 125/72 99 Mechanical Ventilator 40 02/19/17 08:00 98.7 101 20 116/68 97 Mechanical Ventilator 40 02/19/17 08:00 40 02/19/17 08:00 101 02/19/17 07:05 108 24 40 02/19/17 07:00 93 15 115/69 99 Mechanical Ventilator 40 02/19/17 06:00 97 20 125/85 98 Mechanical Ventilator 40 02/19/17 05:00 103 29 126/73 98 Mechanical Ventilator 40 02/19/17 04:45 95 26 40 02/19/17 04:00 40 02/19/17 04:00 96 02/19/17 04:00 98.6 97 20 123/84 99 Mechanical Ventilator 40 02/19/17 03:30 94 25 40 02/19/17 03:00 98 24 123/84 99 Mechanical Ventilator 40 02/19/17 02:00 92 25 120/83 99 Mechanical Ventilator 40 02/19/17 01:30 92 22 40 02/19/17 01:00 92 20 132/71 99 Mechanical Ventilator 40 02/19/17 00:30 122/73 02/19/17 00:00 40 02/19/17 00:00 98.5 94 20 122/73 98 Mechanical Ventilator 40 02/19/17 00:00 94 02/18/17 23:30 99 25 40 02/18/17 23:00 88 19 128/77 99 Mechanical Ventilator 40 02/18/17 22:00 86 19 137/71 99 Mechanical Ventilator 40 02/18/17 21:30 84 21 40 02/18/17 21:00 91 14 119/94 99 Mechanical Ventilator 40 02/18/17 20:00 40 02/18/17 20:00 90 02/18/17 20:00 98.0 85 20 119/89 99 Mechanical Ventilator 40 02/18/17 19:30 82 20 40 02/18/17 19:00 82 20 108/64 100 Mechanical Ventilator 40 02/18/17 18:00 82 26 113/63 100 Mechanical Ventilator 40 02/18/17 17:08 94 21 40 02/18/17 17:00 81 22 128/60 100 Mechanical Ventilator 40 02/18/17 16:07 83 02/18/17 16:00 40 02/18/17 16:00 98.3 85 22 125/56 100 Mechanical Ventilator 40 02/18/17 15:10 96 39 40 02/18/17 15:00 93 21 120/74 99 Mechanical Ventilator 40 02/18/17 14:00 90 15 105/59 100 Mechanical Ventilator 40 02/18/17 13:00 85 25 112/67 100 Mechanical Ventilator 40 02/18/17 12:46 85 21 40 Height (Feet): 5 Height (Inches): 3.00 Weight (Pounds): 162 HEENT: status post trach Respiratory/Chest: lungs clear Cardiovascular: normal rate, regular rhythm, no gallop/murmur Abdomen: soft, non tender, other - GT Extremities: other - + edema, right subclavian catheter Laboratory Tests Test 02/18/17 21:20 02/19/17 04:20 Sodium Level 140 mEQ/L (135-145) 140 mEQ/L (135-145) Potassium Level 6.0 mEQ/L (3.4-4.9) *H 5.6 mEQ/L (3.4-4.9) H Chloride Level 112 mEQ/L (98-107) H 111 mEQ/L (98-107) H Carbon Dioxide Level 17 mEQ/L (20-30) L 17 mEQ/L (20-30) L Anion Gap 11 (5-15) 12 (5-15) Blood Urea Nitrogen 58 mg/dL (7-23) H 58 mg/dL (7-23) H Creatinine 0.6 mg/dL (0.5-0.9) 0.6 mg/dL (0.5-0.9) Estimat Glomerular Filtration Rate > 60 mL/min (>60) > 60 mL/min (>60) Glucose Level 141 mg/dL (74-106) H 68 mg/dL (74-106) L Calcium Level 6.8 mg/dL (8.6-10.2) L 6.7 mg/dL (8.6-10.2) L White Blood Count 28.8 K/UL (4.8-10.8) *H Red Blood Count 4.56 M/UL (4.20-5.40) Hemoglobin 13.4 G/DL (12.0-16.0) # Hematocrit 40.6 % (37.0-47.0) # Mean Corpuscular Volume 89 FL (80-99) Mean Corpuscular Hemoglobin 29.3 PG (27.0-31.0) Mean Corpuscular Hemoglobin Concent 33.0 G/DL (32.0-36.0) Red Cell Distribution Width 16.1 % (11.6-14.8) H Platelet Count 298 K/UL (150-450) Mean Platelet Volume 6.9 FL (6.5-10.1) Neutrophils (%) (Auto) % (45.0-75.0) Lymphocytes (%) (Auto) % (20.0-45.0) Monocytes (%) (Auto) % (1.0-10.0) Eosinophils (%) (Auto) % (0.0-3.0) Basophils (%) (Auto) % (0.0-2.0) Differential Total Cells Counted 100 Neutrophils % (Manual) 92 % (45-75) H Lymphocytes % (Manual) 3 % (20-45) L Monocytes % (Manual) 2 % (1-10) Eosinophils % (Manual) 1 % (0-3) Basophils % (Manual) 0 % (0-2) Band Neutrophils 2 % (0-8) Nucleated Red Blood Cells 1 /100 WBC Platelet Estimate Adequate Platelet Morphology Normal Red Blood Cell Morphology Normal TERRY CH Feb 19, 2017 12:38"
[2017-02-19] MEDS ORDERED: Sodium Polystyrene Sulfonate 15gm Powder GT ONE (14:30)
[2017-02-19] MEDS ORDERED: NS 275ml ONE (15:19)
[2017-02-19] MEDS ORDERED: 1/2 NS 1000ml IV ONE (15:19)
[2017-02-19] MEDS ORDERED: Tubing IV Blood Pump IV ONE (15:19)
--- NOTE | 2017-02-19 17:35 | Critical Care Progress Note ---
Assessment/Plan Assessment/Plan IMPRESSION Sepsis respiratory failure anasarca CRF possible gastroparesis metastatic breast ca leukocytosis acidemia hyperkalemia anemia PLAN prognosis poor maintain meds feeds ID evaluation noted IV antibiotics followup labs followup final cultures per ID nutrition as able adjust ventilator follow up ABG- noted; repeat kayexalate x 1 today IV hydration dcd feeds attempt to update family as to poor prognosis Critical Care - Subjective ROS Limited/Unobtainable: Yes Condition: critical EKG Rhythm: Sinus Tachycardia Residuals: minimal Tube Feeding Tolerated: yes I&O: Intake and Output 02/19/17 02/20/17 19:00 07:00 Intake Total 810 ml Output Total 450 ml Balance 360 ml Free Water 140 ml IV Total 220 ml Tube Feeding 450 ml Output Urine Total 450 ml # Bowel Movements 1 Critical Care - Objective Last 24 Hour Vital Signs Date Time Temp Pulse Resp B/P (MAP) Pulse Ox O2 Delivery O2 Flow Rate FiO2 02/19/17 17:04 112 22 40 02/19/17 16:00 98.7 95 16 112/58 98 Mechanical Ventilator 40 02/19/17 16:00 98 02/19/17 16:00 40 02/19/17 15:00 98 22 113/73 98 Mechanical Ventilator 40 02/19/17 14:42 100 26 40 02/19/17 14:00 104 22 114/55 96 Mechanical Ventilator 40 02/19/17 13:07 111 25 40 02/19/17 13:00 111 22 94/59 96 Mechanical Ventilator 40 02/19/17 12:00 98.8 113 20 121/54 96 Mechanical Ventilator 40 02/19/17 12:00 109 02/19/17 12:00 40 02/19/17 11:02 104 27 40 02/19/17 11:00 105 22 109/66 98 Mechanical Ventilator 40 02/19/17 10:00 102 22 110/71 98 Mechanical Ventilator 40 02/19/17 09:22 106 34 40 02/19/17 09:00 101 21 125/72 99 Mechanical Ventilator 40 02/19/17 08:00 98.7 101 20 116/68 97 Mechanical Ventilator 40 02/19/17 08:00 40 02/19/17 08:00 101 02/19/17 07:05 108 24 40 02/19/17 07:00 93 15 115/69 99 Mechanical Ventilator 40 02/19/17 06:00 97 20 125/85 98 Mechanical Ventilator 40 02/19/17 05:00 103 29 126/73 98 Mechanical Ventilator 40 02/19/17 04:45 95 26 40 02/19/17 04:00 40 02/19/17 04:00 96 02/19/17 04:00 98.6 97 20 123/84 99 Mechanical Ventilator 40 02/19/17 03:30 94 25 40 02/19/17 03:00 98 24 123/84 99 Mechanical Ventilator 40 02/19/17 02:00 92 25 120/83 99 Mechanical Ventilator 40 02/19/17 01:30 92 22 40 02/19/17 01:00 92 20 132/71 99 Mechanical Ventilator 40 02/19/17 00:30 122/73 02/19/17 00:00 40 02/19/17 00:00 98.5 94 20 122/73 98 Mechanical Ventilator 40 02/19/17 00:00 94 02/18/17 23:30 99 25 40 02/18/17 23:00 88 19 128/77 99 Mechanical Ventilator 40 02/18/17 22:00 86 19 137/71 99 Mechanical Ventilator 40 02/18/17 21:30 84 21 40 02/18/17 21:00 91 14 119/94 99 Mechanical Ventilator 40 02/18/17 20:00 40 02/18/17 20:00 90 02/18/17 20:00 98.0 85 20 119/89 99 Mechanical Ventilator 40 02/18/17 19:30 82 20 40 02/18/17 19:00 82 20 108/64 100 Mechanical Ventilator 40 02/18/17 18:00 82 26 113/63 100 Mechanical Ventilator 40 Labs: Labs Test 02/17/17 08:40 02/18/17 03:40 02/18/17 09:15 02/18/17 21:20 Arterial Blood pH 7.258 (7.350-7.450) 7.369 (7.350-7.450) Arterial Blood Partial Pressure CO2 41.1 mmHg (35.0-45.0) 29.4 mmHg (35.0-45.0) Arterial Blood Partial Pressure O2 84.5 mmHg (75.0-100.0) 142.6 mmHg (75.0-100.0) Arterial Blood HCO3 17.9 mmol/L (22.0-26.0) 16.6 mmol/L (22.0-26.0) Arterial Blood Oxygen Saturation 95.8 % (92.0-98.0) 98.6 % (92.0-98.0) Arterial Blood Base Excess -8.6 -8.0 Mark Test Positive Positive White Blood Count 21.2 K/UL (4.8-10.8) Red Blood Count 2.66 M/UL (4.20-5.40) Hemoglobin 7.7 G/DL (12.0-16.0) Hematocrit 25.1 % (37.0-47.0) Mean Corpuscular Volume 94 FL (80-99) Mean Corpuscular Hemoglobin 28.9 PG (27.0-31.0) Mean Corpuscular Hemoglobin Concent 30.7 G/DL (32.0-36.0) Red Cell Distribution Width 17.1 % (11.6-14.8) Platelet Count 295 K/UL (150-450) Mean Platelet Volume 8.2 FL (6.5-10.1) Neutrophils (%) (Auto) % (45.0-75.0) Lymphocytes (%) (Auto) % (20.0-45.0) Monocytes (%) (Auto) % (1.0-10.0) Eosinophils (%) (Auto) % (0.0-3.0) Basophils (%) (Auto) % (0.0-2.0) Differential Total Cells Counted 100 Neutrophils % (Manual) 85 % (45-75) Lymphocytes % (Manual) 5 % (20-45) Monocytes % (Manual) 3 % (1-10) Eosinophils % (Manual) 0 % (0-3) Basophils % (Manual) 0 % (0-2) Metamyelocytes % 1 % (0-0) Band Neutrophils 6 % (0-8) Nucleated Red Blood Cells 3 /100 WBC Platelet Estimate Adequate Platelet Morphology Normal Hypochromasia 1+ Anisocytosis 1+ Sodium Level 140 mEQ/L (135-145) 140 mEQ/L (135-145) Potassium Level 6.8 mEQ/L (3.4-4.9) 6.0 mEQ/L (3.4-4.9) Chloride Level 111 mEQ/L (98-107) 112 mEQ/L (98-107) Carbon Dioxide Level 15 mEQ/L (20-30) 17 mEQ/L (20-30) Anion Gap 14 (5-15) 11 (5-15) Blood Urea Nitrogen 59 mg/dL (7-23) 58 mg/dL (7-23) Creatinine 0.6 mg/dL (0.5-0.9) 0.6 mg/dL (0.5-0.9) Estimat Glomerular Filtration Rate > 60 mL/min (>60) > 60 mL/min (>60) Glucose Level 145 mg/dL (74-106) 141 mg/dL (74-106) Calcium Level 6.6 mg/dL (8.6-10.2) 6.8 mg/dL (8.6-10.2) Total Bilirubin < 0.2 mg/dL (0.0-1.2) Aspartate Amino Transf (AST/SGOT) 16 U/L (5-40) Alanine Aminotransferase (ALT/SGPT) 5 U/L (3-33) Alkaline Phosphatase 133 U/L (35-104) Total Protein 4.3 g/dL (6.6-8.7) Albumin 1.0 g/dL (3.5-5.2) Globulin 3.3 g/dL Albumin/Globulin Ratio 0.3 (1.0-2.7) Test 02/19/17 04:20 White Blood Count 28.8 K/UL (4.8-10.8) Red Blood Count 4.56 M/UL (4.20-5.40) Hemoglobin 13.4 G/DL (12.0-16.0) Hematocrit 40.6 % (37.0-47.0) Mean Corpuscular Volume 89 FL (80-99) Mean Corpuscular Hemoglobin 29.3 PG (27.0-31.0) Mean Corpuscular Hemoglobin Concent 33.0 G/DL (32.0-36.0) Red Cell Distribution Width 16.1 % (11.6-14.8) Platelet Count 298 K/UL (150-450) Mean Platelet Volume 6.9 FL (6.5-10.1) Neutrophils (%) (Auto) % (45.0-75.0) Lymphocytes (%) (Auto) % (20.0-45.0) Monocytes (%) (Auto) % (1.0-10.0) Eosinophils (%) (Auto) % (0.0-3.0) Basophils (%) (Auto) % (0.0-2.0) Differential Total Cells Counted 100 Neutrophils % (Manual) 92 % (45-75) Lymphocytes % (Manual) 3 % (20-45) Monocytes % (Manual) 2 % (1-10) Eosinophils % (Manual) 1 % (0-3) Basophils % (Manual) 0 % (0-2) Band Neutrophils 2 % (0-8) Nucleated Red Blood Cells 1 /100 WBC Platelet Estimate Adequate Platelet Morphology Normal Red Blood Cell Morphology Normal Sodium Level 140 mEQ/L (135-145) Potassium Level 5.6 mEQ/L (3.4-4.9) Chloride Level 111 mEQ/L (98-107) Carbon Dioxide Level 17 mEQ/L (20-30) Anion Gap 12 (5-15) Blood Urea Nitrogen 58 mg/dL (7-23) Creatinine 0.6 mg/dL (0.5-0.9) Estimat Glomerular Filtration Rate > 60 mL/min (>60) Glucose Level 68 mg/dL (74-106) Calcium Level 6.7 mg/dL (8.6-10.2) Objective: WDWN chronically ill and poorly responsive coarse breath sounds bilaterally [id number] without MRG NABS nontender no HSM; GT no CC noted edema- diffuse poor LOC trach Accucheck: 152 AMALIA HUGO Feb 19, 2017 17:35
[2017-02-19] MEDS: Dyna-Hex 2% Top Sol 2oz TOPIC SCH (20:48)
[2017-02-20] VITALS (24 sets, daily range): BP systolic 96–156; BP diastolic 53–90
[2017-02-20 05:54] LABS: MEAN CORPUSCULAR HEMOGLOBIN 29.3 PG (27.0-31.0); MEAN CORPUSCULAR HGB CONC 32.6 G/DL (32.0-36.0); MEAN CORPUSCULAR VOLUME 90 FL (80-99); MEAN PLATELET VOLUME 7.9 FL (6.5-10.1); PLATELET COUNT 318 K/UL (150-450); RED CELL DISTRIBUTION WIDTH 16.1 % (11.6-14.8)
[2017-02-20 06:09] LABS: WHITE BLOOD COUNT 30.5 K/UL (4.8-10.8)
[2017-02-20] MEDS: Meropenem 1 GM in NS 110 ML IVPB SCH ×3 (06:10→21:47)
[2017-02-20] MEDS: Brimonidine 0.2% Opth Sol RIGHT EYE SCH ×3 (06:10→21:47)
[2017-02-20] MEDS: Dorzolamide 2% 10ml Btl RIGHT EYE SCH ×3 (06:10→21:47)
[2017-02-20] MEDS: NovoLOG Insulin Flexpen SUBQ SCH ×4 (06:11→23:53)
[2017-02-20 06:25] LABS: ANION GAP 10 (5-15); CALCIUM 6.8 mg/dL (8.6-10.2); CARBON DIOXIDE 24 mEQ/L (20-30); CHLORIDE 115 mEQ/L (98-107); CREATININE 0.6 mg/dL (0.5-0.9); GLOMERULAR FILTRATION RATE > 60 mL/min (>60); HEMOLYSIS 2; POTASSIUM 4.2 mEQ/L (3.4-4.9); SODIUM 149 mEQ/L (135-145)
[2017-02-20 07:51] LABS: LYMPHOCYTES % (MANUAL) 4 % (20-45); NEUTROPHILS % (MANUAL) 94 % (45-75); TOTAL CELLS COUNTED 100
[2017-02-20 07:55] LABS: BAND NEUTROPHILS % (MANUAL) 0 % (0-8); BASOPHILS % (MANUAL) 0 % (0-2); EOSINOPHILS % (MANUAL) 0 % (0-3); MICROCYTES 1+; PLATELET ESTIMATE ADEQUATE; PLATELET MORPHOLOGY NORMAL
[2017-02-20] MEDS: Ferrous Sulfate 300 MG/5 ML UDC GT SCH ×3 (08:51→18:20)
[2017-02-20] MEDS: Docusate 100mg/10ml Liq GT SCH (08:51)
[2017-02-20] MEDS: Fluconazole 100mg tab ORAL SCH (08:51)
[2017-02-20] MEDS: Aspirin Baby 81mg GT SCH (08:52)
[2017-02-20] MEDS: Ascorbic Acid 500mg tab ORAL SCH (08:52)
[2017-02-20] MEDS: Heparin 5000 units/ml inj SUBQ SCH ×2 (08:54→20:36)
[2017-02-20] MEDS: Levemir Flexpen SUBQ SCH ×2 (08:56→20:35)
[2017-02-20] MEDS: Morphine Sulfate 2mg/ml Inj IVP PRN (13:53)
--- NOTE | 2017-02-20 15:21 | Critical Care Progress Note ---
Assessment/Plan Assessment/Plan IMPRESSION Sepsis respiratory failure anasarca CRF possible gastroparesis metastatic breast ca leukocytosis acidemia hyperkalemia anemia PLAN prognosis poor maintain meds feeds tolerated ID evaluation noted IV antibiotics followup labs noted; wbc not better followup final cultures per ID nutrition as able adjust ventilator follow up ABG- noted; adequate exchange hope to discuss with family as to comfort care Critical Care - Subjective Interval Events: d/w updated him as to poor status notes daughter and family will come tomorrow to discuss understands poor to no chance of survival I&O: Intake and Output 02/20/17 02/21/17 19:00 07:00 Intake Total 710 ml Output Total 140 ml Balance 570 ml Free Water 140 ml IV Total 220 ml Tube Feeding 350 ml Output Urine Total 140 ml Critical Care - Objective Last 24 Hour Vital Signs Date Time Temp Pulse Resp B/P (MAP) Pulse Ox O2 Delivery O2 Flow Rate FiO2 02/20/17 14:23 98.9 02/20/17 14:00 99 23 121/90 99 Mechanical Ventilator 40 02/20/17 13:41 110 39 40 02/20/17 13:00 107 20 138/78 99 Mechanical Ventilator 40 02/20/17 12:00 40 02/20/17 12:00 100 02/20/17 12:00 103 20 133/65 100 Mechanical Ventilator 40 02/20/17 11:56 102 26 40 02/20/17 11:00 102 20 133/69 100 Mechanical Ventilator 40 02/20/17 10:00 102 20 123/67 99 Mechanical Ventilator 40 02/20/17 09:17 101 22 40 02/20/17 09:00 98.9 105 22 125/73 97 Mechanical Ventilator 40 02/20/17 08:00 40 02/20/17 08:00 99 02/20/17 08:00 99.0 105 20 106/64 96 Mechanical Ventilator 40 02/20/17 07:00 101 20 130/62 99 Mechanical Ventilator 40 02/20/17 06:47 105 31 40 02/20/17 06:02 107 20 145/78 99 Mechanical Ventilator 40 02/20/17 05:22 102 20 40 02/20/17 05:00 100 20 156/78 99 Mechanical Ventilator 40 02/20/17 04:00 40 02/20/17 04:00 98.4 100 20 130/60 99 Mechanical Ventilator 40 02/20/17 04:00 97 02/20/17 03:26 96 20 40 02/20/17 03:00 102 20 119/60 99 Mechanical Ventilator 40 02/20/17 02:00 100 21 127/80 99 Mechanical Ventilator 40 02/20/17 01:23 100 28 40 02/20/17 01:00 100 21 116/69 99 Mechanical Ventilator 40 02/20/17 00:30 127/80 02/20/17 00:00 99 02/20/17 00:00 98.0 97 21 129/71 98 Mechanical Ventilator 40 02/20/17 00:00 40 02/19/17 23:29 98 22 40 02/19/17 23:00 104 21 122/74 98 Mechanical Ventilator 40 02/19/17 22:00 99 21 101/70 98 Mechanical Ventilator 40 02/19/17 21:24 97 20 40 02/19/17 21:00 97 21 100/65 98 Mechanical Ventilator 40 02/19/17 20:00 98.2 103 22 118/68 97 Mechanical Ventilator 40 02/19/17 20:00 40 02/19/17 20:00 97 02/19/17 19:11 108 27 40 02/19/17 19:00 103 22 115/69 97 Mechanical Ventilator 40 02/19/17 18:00 103 22 116/69 97 Mechanical Ventilator 40 02/19/17 17:04 112 22 40 02/19/17 17:00 98 22 123/90 98 Mechanical Ventilator 40 02/19/17 16:00 98.7 95 16 112/58 98 Mechanical Ventilator 40 02/19/17 16:00 98 02/19/17 16:00 40 Objective: WDWN chronically ill and poorly responsive coarse breath sounds bilaterally [id number] without MRG NABS nontender no HSM; GT no CC noted edema- diffuse poor LOC trach Accucheck: 183 AMALIA HUGO Feb 20, 2017 15:21
[2017-02-20] MEDS ORDERED: Amiodarone 150mg/ml 3ml Amp ONE (15:46)
[2017-02-20] MEDS: Dyna-Hex 2% Top Sol 2oz TOPIC SCH (20:34)
[2017-02-21] VITALS (18 sets, daily range): BP systolic 88–146; BP diastolic 42–79
[2017-02-21] MEDS: Meropenem 1 GM in NS 110 ML IVPB SCH ×4 (05:36→22:04)
[2017-02-21] MEDS: Brimonidine 0.2% Opth Sol RIGHT EYE SCH ×4 (05:36→22:06)
[2017-02-21] MEDS: Dorzolamide 2% 10ml Btl RIGHT EYE SCH ×4 (05:36→22:06)
[2017-02-21] MEDS: NovoLOG Insulin Flexpen SUBQ SCH ×3 (05:37→17:58)
--- NOTE | 2017-02-21 08:09 | Critical Care Progress Note ---
Assessment/Plan Assessment/Plan IMPRESSION Sepsis respiratory failure anasarca CRF possible gastroparesis metastatic breast ca leukocytosis acidemia hyperkalemia anemia PLAN prognosis poor maintain meds feeds tolerated ID evaluation to follow IV antibiotics followup labs noted; wbc not better followup final cultures per ID nutrition as able adjust ventilator follow up ABG- noted; adequate exchange hope to discuss with family as to comfort care medications/laboratory data/nursing notes/ICU care reviewed in detail note reviewed and edited Critical Care - Subjective Interval Events: care noted awaiting family to arrive and rediscuss goals and values no improvement ROS Limited/Unobtainable: Yes Condition: critical EKG Rhythm: Sinus Rhythm Residuals: minimal Tube Feeding Tolerated: yes Critical Care - Objective Last 24 Hour Vital Signs Date Time Temp Pulse Resp B/P (MAP) Pulse Ox O2 Delivery O2 Flow Rate FiO2 02/21/17 07:00 91 14 98/50 98 Mechanical Ventilator 40 02/21/17 06:48 87 20 40 02/21/17 06:00 93 13 95/50 98 Mechanical Ventilator 40 02/21/17 05:01 94 22 40 02/21/17 05:00 93 13 114/42 99 Mechanical Ventilator 40 02/21/17 04:00 93 02/21/17 04:00 98.4 90 20 108/61 98 Mechanical Ventilator 40 02/21/17 04:00 40 02/21/17 03:00 91 20 106/59 98 Mechanical Ventilator 40 02/21/17 02:34 90 20 40 02/21/17 02:00 91 20 128/68 99 Mechanical Ventilator 40 02/21/17 01:16 86 20 40 02/21/17 01:00 89 13 108/57 99 Mechanical Ventilator 40 02/21/17 00:30 116/63 02/21/17 00:00 98.2 90 13 116/63 99 Mechanical Ventilator 40 02/20/17 23:36 93 20 40 02/20/17 23:00 94 20 114/63 99 Mechanical Ventilator 40 02/20/17 22:00 93 20 109/65 100 Mechanical Ventilator 40 02/20/17 21:11 94 20 40 02/20/17 21:00 95 20 112/53 100 Mechanical Ventilator 40 02/20/17 20:00 93 02/20/17 20:00 98.7 93 20 112/53 99 Mechanical Ventilator 40 02/20/17 20:00 40 02/20/17 19:21 103 20 40 02/20/17 19:00 96 20 116/71 99 Mechanical Ventilator 40 02/20/17 18:00 94 20 96/67 99 Mechanical Ventilator 40 02/20/17 17:12 93 21 40 02/20/17 17:00 98 23 121/63 99 Mechanical Ventilator 40 02/20/17 16:00 101 02/20/17 16:00 98.6 105 23 115/84 98 Mechanical Ventilator 40 02/20/17 16:00 40 02/20/17 15:37 101 35 40 02/20/17 15:00 98 23 118/76 98 Mechanical Ventilator 40 02/20/17 14:23 98.9 02/20/17 14:00 99 23 121/90 99 Mechanical Ventilator 40 02/20/17 13:41 110 39 40 02/20/17 13:30 98.9 02/20/17 13:00 107 20 138/78 99 Mechanical Ventilator 40 02/20/17 12:00 99.8 02/20/17 12:00 40 02/20/17 12:00 100 02/20/17 12:00 103 20 133/65 100 Mechanical Ventilator 40 02/20/17 11:56 102 26 40 02/20/17 11:00 102 20 133/69 100 Mechanical Ventilator 40 02/20/17 10:00 102 20 123/67 99 Mechanical Ventilator 40 02/20/17 09:17 101 22 40 02/20/17 09:00 98.9 105 22 125/73 97 Mechanical Ventilator 40 Objective: WDWN chronically ill and poorly responsive coarse breath sounds bilaterally [id number] without MRG NABS nontender no HSM; GT no CC noted edema- diffuse poor LOC trach Accucheck: 90 AMALIA HUGO Feb 21, 2017 08:09
[2017-02-21] MEDS: Docusate 100mg/10ml Liq GT SCH (08:29)
[2017-02-21] MEDS: Ferrous Sulfate 300 MG/5 ML UDC GT SCH ×3 (08:29→17:11)
[2017-02-21] MEDS: Ascorbic Acid 500mg tab ORAL SCH (08:29)
[2017-02-21] MEDS: Fluconazole 100mg tab ORAL SCH (08:29)
[2017-02-21] MEDS: Heparin 5000 units/ml inj SUBQ SCH ×2 (08:31→20:22)
[2017-02-21] MEDS: Aspirin Baby 81mg GT SCH (08:31)
[2017-02-21] MEDS: Levemir Flexpen SUBQ SCH ×2 (08:44→20:23)
--- NOTE | 2017-02-21 12:14 | Infectious Diseases Prog Note ---
"Assessment/Plan Assessment/Plan antibiotics : meropenem, fluconazole A 1. aspiration pneumonia with klebsiella | proteus 2. fungal UTI 3. leucocytosis 4. metastatic breast cancer 5. respiratory failure 6. anasarca P 1. continue meropenem 2. continue fluconazole 2 more days 3. will follow up cultures Subjective ROS Limited/Unobtainable: Yes Allergies: Coded Allergies: No Known Allergies (Unverified , 02/11/17) Objective Vital Signs Last 24 Hour Vital Signs Date Time Temp Pulse Resp B/P (MAP) Pulse Ox O2 Delivery O2 Flow Rate FiO2 02/21/17 11:05 90 20 40 02/21/17 11:00 97 20 118/74 98 Mechanical Ventilator 40 02/21/17 11:00 93 20 118/74 97 Mechanical Ventilator 40 02/21/17 10:00 91 21 114/70 98 Mechanical Ventilator 40 02/21/17 09:00 90 21 108/58 98 Mechanical Ventilator 40 02/21/17 08:53 98 20 40 02/21/17 08:52 98.5 97 12 94/57 98 02/21/17 08:00 98.5 86 17 88/46 99 Mechanical Ventilator 40 02/21/17 08:00 40 02/21/17 08:00 91 02/21/17 07:00 91 14 98/50 98 Mechanical Ventilator 40 02/21/17 06:48 87 20 40 02/21/17 06:00 93 13 95/50 98 Mechanical Ventilator 40 02/21/17 05:01 94 22 40 02/21/17 05:00 93 13 114/42 99 Mechanical Ventilator 40 02/21/17 04:00 93 02/21/17 04:00 98.4 90 20 108/61 98 Mechanical Ventilator 40 02/21/17 04:00 40 02/21/17 03:00 91 20 106/59 98 Mechanical Ventilator 40 02/21/17 02:34 90 20 40 02/21/17 02:00 91 20 128/68 99 Mechanical Ventilator 40 02/21/17 01:16 86 20 40 02/21/17 01:00 89 13 108/57 99 Mechanical Ventilator 40 02/21/17 00:30 116/63 02/21/17 00:00 98.2 90 13 116/63 99 Mechanical Ventilator 40 02/20/17 23:36 93 20 40 02/20/17 23:00 94 20 114/63 99 Mechanical Ventilator 40 02/20/17 22:00 93 20 109/65 100 Mechanical Ventilator 40 02/20/17 21:11 94 20 40 02/20/17 21:00 95 20 112/53 100 Mechanical Ventilator 40 02/20/17 20:00 93 02/20/17 20:00 98.7 93 20 112/53 99 Mechanical Ventilator 40 02/20/17 20:00 40 02/20/17 19:21 103 20 40 02/20/17 19:00 96 20 116/71 99 Mechanical Ventilator 40 02/20/17 18:00 94 20 96/67 99 Mechanical Ventilator 40 02/20/17 17:12 93 21 40 02/20/17 17:00 98 23 121/63 99 Mechanical Ventilator 40 02/20/17 16:00 101 02/20/17 16:00 98.6 105 23 115/84 98 Mechanical Ventilator 40 02/20/17 16:00 40 02/20/17 15:37 101 35 40 02/20/17 15:00 98 23 118/76 98 Mechanical Ventilator 40 02/20/17 14:23 98.9 02/20/17 14:00 99 23 121/90 99 Mechanical Ventilator 40 02/20/17 13:41 110 39 40 02/20/17 13:30 98.9 02/20/17 13:00 107 20 138/78 99 Mechanical Ventilator 40 Height (Feet): 5 Height (Inches): 3.00 Weight (Pounds): 166 HEENT: status post trach Respiratory/Chest: crackles/rales Cardiovascular: normal rate, regular rhythm, no gallop/murmur Abdomen: soft, non tender, other - GT Extremities: other - + edema bilaterally, right subclavian catheter TERRY CH Feb 21, 2017 12:14"
[2017-02-21] MEDS ORDERED: Morphine Sulfate 2mg/ml Inj IVP PRN (14:00)
[2017-02-21] MEDS ORDERED: Morphine Sulfate 4mg/ml Inj IVP PRN (14:00)
[2017-02-21] MEDS ORDERED: Morphine Sulfate 10mg/ml Inj IVP PRN (14:00)
[2017-02-21] MEDS: Dyna-Hex 2% Top Sol 2oz TOPIC SCH (20:20)
[2017-02-22] MEDS: NovoLOG Insulin Flexpen SUBQ SCH ×5 (00:14→23:42)
[2017-02-22 03:41] VITALS: BP 129/72
--- NOTE | 2017-02-22 05:51 | Critical Care Progress Note ---
Assessment/Plan Assessment/Plan IMPRESSION Sepsis respiratory failure anasarca CRF possible gastroparesis metastatic breast ca leukocytosis acidemia hyperkalemia anemia PLAN prognosis poor maintain meds feeds tolerated ID evaluation to follow IV antibiotics followup labs noted; and cxr followup final cultures per ID nutrition as able adjust ventilator as needed; monitor PIP follow up ABG- noted; adequate exchange hope to discuss with family as to comfort care medications/laboratory data/nursing notes reviewed in detail note reviewed and edited Critical Care - Subjective ROS Limited/Unobtainable: Yes Condition: critical Residuals: minimal Tube Feeding Tolerated: yes Critical Care - Objective Last 24 Hour Vital Signs Date Time Temp Pulse Resp B/P (MAP) Pulse Ox O2 Delivery O2 Flow Rate FiO2 02/22/17 05:24 93 23 40 02/22/17 04:00 40 02/22/17 03:41 97.2 90 20 129/72 97 Mechanical Ventilator 02/22/17 03:33 88 21 40 02/22/17 03:33 83 02/22/17 01:18 84 20 40 02/22/17 00:00 40 02/21/17 23:56 88 02/21/17 23:40 85 20 40 02/21/17 23:29 97.5 82 20 124/79 100 Mechanical Ventilator 02/21/17 21:00 94 26 40 02/21/17 20:00 40 02/21/17 19:34 96.6 91 20 102/67 99 Mechanical Ventilator 02/21/17 19:28 71 02/21/17 19:05 85 20 40 02/21/17 16:55 88 20 40 02/21/17 16:00 98.2 88 20 146/65 97 Mechanical Ventilator 40 02/21/17 16:00 72 02/21/17 16:00 40 02/21/17 15:30 83 20 40 02/21/17 13:00 98.5 86 20 122/75 98 Mechanical Ventilator 40 02/21/17 12:50 91 20 40 02/21/17 12:00 40 02/21/17 12:00 85 18 127/72 98 Mechanical Ventilator 40 02/21/17 12:00 86 02/21/17 11:05 90 20 40 02/21/17 11:00 97 20 118/74 98 Mechanical Ventilator 40 02/21/17 11:00 93 20 118/74 97 Mechanical Ventilator 40 02/21/17 10:00 91 21 114/70 98 Mechanical Ventilator 40 02/21/17 09:00 90 21 108/58 98 Mechanical Ventilator 40 02/21/17 08:53 98 20 40 02/21/17 08:52 98.5 97 12 94/57 98 02/21/17 08:00 98.5 86 17 88/46 99 Mechanical Ventilator 40 02/21/17 08:00 40 02/21/17 08:00 91 02/21/17 07:00 91 14 98/50 98 Mechanical Ventilator 40 02/21/17 06:48 87 20 40 02/21/17 06:00 93 13 95/50 98 Mechanical Ventilator 40 Labs: Labs Test 02/20/17 04:30 White Blood Count 30.5 K/UL (4.8-10.8) Red Blood Count 3.80 M/UL (4.20-5.40) Hemoglobin 11.2 G/DL (12.0-16.0) Hematocrit 34.2 % (37.0-47.0) Mean Corpuscular Volume 90 FL (80-99) Mean Corpuscular Hemoglobin 29.3 PG (27.0-31.0) Mean Corpuscular Hemoglobin Concent 32.6 G/DL (32.0-36.0) Red Cell Distribution Width 16.1 % (11.6-14.8) Platelet Count 318 K/UL (150-450) Mean Platelet Volume 7.9 FL (6.5-10.1) Neutrophils (%) (Auto) % (45.0-75.0) Lymphocytes (%) (Auto) % (20.0-45.0) Monocytes (%) (Auto) % (1.0-10.0) Eosinophils (%) (Auto) % (0.0-3.0) Basophils (%) (Auto) % (0.0-2.0) Differential Total Cells Counted 100 Neutrophils % (Manual) 94 % (45-75) Lymphocytes % (Manual) 4 % (20-45) Monocytes % (Manual) 2 % (1-10) Eosinophils % (Manual) 0 % (0-3) Basophils % (Manual) 0 % (0-2) Band Neutrophils 0 % (0-8) Platelet Estimate Adequate Platelet Morphology Normal Microcytosis 1+ Sodium Level 149 mEQ/L (135-145) Potassium Level 4.2 mEQ/L (3.4-4.9) Chloride Level 115 mEQ/L (98-107) Carbon Dioxide Level 24 mEQ/L (20-30) Anion Gap 10 (5-15) Blood Urea Nitrogen 70 mg/dL (7-23) Creatinine 0.6 mg/dL (0.5-0.9) Estimat Glomerular Filtration Rate > 60 mL/min (>60) Glucose Level 172 mg/dL (74-106) Calcium Level 6.8 mg/dL (8.6-10.2) Objective: WDWN chronically ill and poorly responsive coarse breath sounds bilaterally [id number] without MRG NABS nontender no HSM; GT no CC noted edema- diffuse poor LOC trach Accucheck: 114 AMALIA HUGO Feb 22, 2017 05:51
[2017-02-22] MEDS: Meropenem 1 GM in NS 110 ML IVPB SCH ×3 (05:53→21:00)
[2017-02-22] MEDS: Brimonidine 0.2% Opth Sol RIGHT EYE SCH ×3 (05:54→21:01)
[2017-02-22] MEDS: Dorzolamide 2% 10ml Btl RIGHT EYE SCH ×3 (05:54→21:00)
[2017-02-22 07:57] LABS: ANION GAP 10 (5-15); CALCIUM 7.3 mg/dL (8.6-10.2); CARBON DIOXIDE 25 mEQ/L (20-30); CHLORIDE 115 mEQ/L (98-107); CREATININE 0.5 mg/dL (0.5-0.9); GLOMERULAR FILTRATION RATE > 60 mL/min (>60); HEMOLYSIS 0; POTASSIUM 4.4 mEQ/L (3.4-4.9); SODIUM 150 mEQ/L (135-145)
[2017-02-22 07:58] LABS: MEAN CORPUSCULAR HEMOGLOBIN 29.5 PG (27.0-31.0); MEAN CORPUSCULAR VOLUME 90 FL (80-99); MEAN PLATELET VOLUME 7.4 FL (6.5-10.1); PLATELET COUNT 309 K/UL (150-450); RED BLOOD COUNT 3.88 M/UL (4.20-5.40); RED CELL DISTRIBUTION WIDTH 15.8 % (11.6-14.8); WHITE BLOOD COUNT 20.2 K/UL (4.8-10.8)
[2017-02-22 08:06] VITALS: BP 111/54
[2017-02-22] MEDS: Docusate 100mg/10ml Liq GT SCH (09:00)
[2017-02-22] MEDS ORDERED: Fluconazole 100mg tab GT SCH (09:00)
[2017-02-22] MEDS: Ferrous Sulfate 300 MG/5 ML UDC GT SCH ×3 (09:01→17:12)
[2017-02-22] MEDS: Ascorbic Acid 500mg tab ORAL SCH (09:01)
[2017-02-22] MEDS: Aspirin Baby 81mg GT SCH (09:02)
[2017-02-22] MEDS: Heparin 5000 units/ml inj SUBQ SCH ×2 (09:03→21:01)
[2017-02-22] MEDS: Levemir Flexpen SUBQ SCH ×2 (09:03→21:02)
[2017-02-22 09:04] LABS: BAND NEUTROPHILS % (MANUAL) 3 % (0-8); BASOPHILS % (MANUAL) 0 % (0-2); EOSINOPHILS % (MANUAL) 0 % (0-3); LYMPHOCYTES % (MANUAL) 4 % (20-45); NEUTROPHILS % (MANUAL) 90 % (45-75); PLATELET ESTIMATE ADEQUATE; PLATELET MORPHOLOGY NORMAL; TOTAL CELLS COUNTED 100
[2017-02-22 09:05] LABS: ACANTHOCYTES 1+; ANISOCYTOSIS 1+
--- NOTE | 2017-02-22 09:33 | Diagnostic Imaging Report ---
Indication: Shortness of breath Technique: XRAY CHEST 1 V Comparison: 02/11/17 Findings: Patient is rotated limiting evaluation. Right chest port and tracheostomy are again noted. The cardiomediastinal silhouette is grossly stable. Atherosclerotic changes are present. Bilateral airspace opacities are seen. Small bilateral pleural effusions are suggested. Osseous structures are grossly stable. Impression: Bilateral airspace edema versus infiltrates. Small bilateral pleural effusions.
[2017-02-22 12:00] VITALS: BP 115/66
--- NOTE | 2017-02-22 12:32 | Infectious Diseases Prog Note ---
Assessment/Plan Assessment/Plan ID Coverage for Dr. Leach: A) 1) esbl proteus and klebsiella pna, sepsis, leukocytosis, fevers 2) fungal uti 3) vre colonization 4) metastatic breast ca 5) trach, vent, respiratory failure, dysphagia, g-tube, anemia, dm, htn, anasarca 6) allergies - negative, fh-nc, sh-neg, mar noted, notes and records reviewed 7) d/w RN and family P) 1) meropenem 2) diflucan x 1 day more 3) f/u on chest x-ray and labs 4) continue treatment per primary and consultants 5) orders noted and entered 6) skin care per protocol Subjective Constitutional: Denies: fever HEENT: Reports: congestion, other - + trach Respiratory: Reports: shortness of breath, other - + vent Cardiovascular: Denies: chest pain Gastrointestinal/Abdominal: Denies: nausea, vomiting, diarrhea Genitourinary: Reports: other - + hoffman Neurologic: Reports: weakness, other - lethargic Allergies: Coded Allergies: No Known Allergies (Unverified , 02/11/17) Objective Vital Signs Last 24 Hour Vital Signs Date Time Temp Pulse Resp B/P (MAP) Pulse Ox O2 Delivery O2 Flow Rate FiO2 02/22/17 11:24 96 22 40 02/22/17 10:35 97 20 40 02/22/17 08:39 83 02/22/17 08:06 97.5 92 22 111/54 100 Mechanical Ventilator 40 02/22/17 08:00 40 02/22/17 07:19 94 20 40 02/22/17 05:24 93 23 40 02/22/17 04:00 40 02/22/17 03:41 97.2 90 20 129/72 97 Mechanical Ventilator 02/22/17 03:33 88 21 40 02/22/17 03:33 83 02/22/17 01:18 84 20 40 02/22/17 00:00 40 02/21/17 23:56 88 02/21/17 23:40 85 20 40 02/21/17 23:29 97.5 82 20 124/79 100 Mechanical Ventilator 02/21/17 21:00 94 26 40 02/21/17 20:00 40 02/21/17 19:34 96.6 91 20 102/67 99 Mechanical Ventilator 02/21/17 19:28 71 02/21/17 19:05 85 20 40 02/21/17 16:55 88 20 40 02/21/17 16:00 98.2 88 20 146/65 97 Mechanical Ventilator 40 02/21/17 16:00 72 02/21/17 16:00 40 02/21/17 15:30 83 20 40 02/21/17 13:00 98.5 86 20 122/75 98 Mechanical Ventilator 40 02/21/17 12:50 91 20 40 Height (Feet): 5 Height (Inches): 3.00 Weight (Pounds): 166 General Appearance: other - + trach and vent, poorly responsive HEENT: atraumatic, anicteric, no JVD, status post trach Respiratory/Chest: crackles/rales, rhonchi - bilaterally Cardiovascular: normal rate, regular rhythm, no gallop/murmur Abdomen: normal bowel sounds, soft, non tender, no organomegaly, non distended Genitourinary: other - + hoffman - urines slt cloudy Extremities: no cyanosis Skin: no rash, other - wounds covered Neurologic/Psychiatric: motor weakness, other - letharg and poorly responsive Lymphatic: no neck adenopathy Musculoskeletal: no effusion Objective 02/22 - chest x-ray Impression: Bilateral airspace edema versus infiltrates. Small bilateral pleural effusions. Microbiology Date/Time Source Procedure Growth Status 02/11/17 17:45 Blood Blood Culture - Final NO GROWTH AFTER 5 DAYS Complete 02/13/17 10:30 Sputum Gram Stain - Final Complete 02/13/17 10:30 Sputum Culture - Final Klebsiella Pneumoniae Esbl Proteus Mirabilis Esbl Complete 02/14/17 13:00 Indwelling Cath Urine Culture - Final Mouna Albicans Complete 02/11/17 20:30 Rectum VRE Culture - Final Enterococcus Faecium - Vre Complete Laboratory Tests Test 02/22/17 07:30 White Blood Count 20.2 K/UL (4.8-10.8) H Red Blood Count 3.88 M/UL (4.20-5.40) L Hemoglobin 11.5 G/DL (12.0-16.0) L Hematocrit 34.8 % (37.0-47.0) L Mean Corpuscular Volume 90 FL (80-99) Mean Corpuscular Hemoglobin 29.5 PG (27.0-31.0) Mean Corpuscular Hemoglobin Concent 33.0 G/DL (32.0-36.0) Red Cell Distribution Width 15.8 % (11.6-14.8) H Platelet Count 309 K/UL (150-450) Mean Platelet Volume 7.4 FL (6.5-10.1) Neutrophils (%) (Auto) % (45.0-75.0) Lymphocytes (%) (Auto) % (20.0-45.0) Monocytes (%) (Auto) % (1.0-10.0) Eosinophils (%) (Auto) % (0.0-3.0) Basophils (%) (Auto) % (0.0-2.0) Differential Total Cells Counted 100 Neutrophils % (Manual) 90 % (45-75) H Lymphocytes % (Manual) 4 % (20-45) L Monocytes % (Manual) 3 % (1-10) Eosinophils % (Manual) 0 % (0-3) Basophils % (Manual) 0 % (0-2) Band Neutrophils 3 % (0-8) Platelet Estimate Adequate Platelet Morphology Normal Anisocytosis 1+ Acanthocytes 1+ Sodium Level 150 mEQ/L (135-145) H Potassium Level 4.4 mEQ/L (3.4-4.9) Chloride Level 115 mEQ/L (98-107) H Carbon Dioxide Level 25 mEQ/L (20-30) Anion Gap 10 (5-15) Blood Urea Nitrogen 72 mg/dL (7-23) H Creatinine 0.5 mg/dL (0.5-0.9) Estimat Glomerular Filtration Rate > 60 mL/min (>60) Glucose Level 109 mg/dL (74-106) H Calcium Level 7.3 mg/dL (8.6-10.2) L Current Medications Medications (Trade) Dose Ordered Sig/Colleen Route PRN Reason Start Time Stop Time Status Last Admin Dose Admin Acetaminophen (Tylenol) 650 mg Q4H PRN GT Mild Pain/Temp > 100.5 02/21/17 14:45 03/13/17 22:44 Al Hydroxide/Mg Hydroxide (Mylanta) 30 ml Q4H PRN GT Abdominal cramps 02/21/17 14:00 03/13/17 13:59 Ascorbic Acid (Vitamin C) 500 mg DAILY ORAL 02/22/17 09:00 03/20/17 08:59 02/22/17 09:01 Aspirin (ASA) 81 mg DAILY GT 02/22/17 09:00 03/14/17 08:59 02/22/17 09:02 Brimonidine Tartrate (Alphagan) 1 drop Q8HR RIGHT EYE 02/21/17 14:00 03/14/17 13:59 02/22/17 05:54 Chlorhexidine Gluconate (Patricia-Hex 2%) 1 applic QHS TOPIC 02/21/17 21:00 03/15/17 20:59 02/21/17 20:20 Dextrose (Dextrose 50%) STAT PRN IV Hypoglycemia 02/21/17 14:00 03/13/17 13:59 Docusate Sodium (Colace) 100 mg DAILY GT 02/22/17 09:00 03/14/17 08:59 Dorzolamide HCl (Trusopt) 1 drop EVERY 8 HOURS RIGHT EYE 02/21/17 14:00 03/14/17 13:59 02/22/17 05:54 Ferrous Sulfate (Feosol) 300 mg THREE TIMES A DAY GT 02/21/17 18:00 03/14/17 08:59 02/22/17 09:01 Fluconazole (Diflucan) 100 mg DAILY GT 02/22/17 09:00 02/24/17 14:29 02/22/17 09:01 Heparin Sodium (Porcine) (Heparin 5000 units/ml) 5,000 units Q12HR SUBQ 02/21/17 21:00 03/18/17 08:59 02/22/17 09:03 Insulin Aspart (NovoLOG) EVERY 6 HOURS SUBQ 02/21/17 18:00 03/20/17 20:59 02/22/17 12:00 Insulin Detemir (Levemir) 5 units Q12HR SUBQ 02/21/17 21:00 03/20/17 20:59 02/22/17 09:03 Lansoprazole (Prevacid) 30 mg DAILY GT 02/22/17 09:00 03/14/17 08:59 02/22/17 09:01 Meropenem 1 gm/ Sodium Chloride 110 ml @ 220 mls/hr Q8HR IVPB 02/21/17 14:00 02/24/17 14:29 02/22/17 05:53 Ondansetron HCl (Zofran) 4 mg Q6H PRN IVP Nausea & Vomiting 02/21/17 14:00 03/13/17 13:59 MAXI MARINO Feb 22, 2017 12:32
[2017-02-22] MEDS: Acetaminophen 650mg/20.3ml GT PRN (14:34)
[2017-02-22] MEDS: Albuterol/Ipratropium 3ml neb HHN PRN (14:41)
[2017-02-22 16:00] VITALS: BP 118/62
[2017-02-22] MEDS ORDERED: NS 275ml ONE (16:49)
[2017-02-22] MEDS ORDERED: Tubing IV Secondary IV ONE (16:49)
[2017-02-22 20:00] VITALS: BP 101/87
[2017-02-22] MEDS: Dyna-Hex 2% Top Sol 2oz TOPIC SCH (21:01)
[2017-02-23] VITALS: BP 116/70
[2017-02-23 04:00] VITALS: BP 125/56
[2017-02-23] MEDS: Dorzolamide 2% 10ml Btl RIGHT EYE SCH ×3 (06:17→20:47)
[2017-02-23] MEDS: Meropenem 1 GM in NS 110 ML IVPB SCH ×3 (06:18→21:56)
[2017-02-23] MEDS: Brimonidine 0.2% Opth Sol RIGHT EYE SCH ×3 (06:18→20:47)
[2017-02-23] MEDS: NovoLOG Insulin Flexpen SUBQ SCH ×3 (06:19→18:19)
[2017-02-23 08:00] VITALS: BP 127/98
--- NOTE | 2017-02-23 08:33 | Critical Care Progress Note ---
Assessment/Plan Assessment/Plan IMPRESSION Sepsis respiratory failure anasarca CRF possible gastroparesis metastatic breast ca leukocytosis acidemia hyperkalemia anemia hypernatremia PLAN prognosis poor maintain meds feeds tolerated ID evaluation noted IV antibiotics followup labs noted; and cxr followup final cultures per ID nutrition as able free water adjust ventilator as needed; monitor PIP follow up ABG- noted; adequate exchange hope to discuss with family as to comfort care medications/laboratory data/nursing notes reviewed in detail note reviewed and edited Critical Care - Subjective ROS Limited/Unobtainable: Yes Condition: critical EKG Rhythm: Sinus Rhythm Residuals: minimal Tube Feeding Tolerated: yes I&O: poorly responsive on the ventilator PIP at 65-70 Critical Care - Objective Last 24 Hour Vital Signs Date Time Temp Pulse Resp B/P (MAP) Pulse Ox O2 Delivery O2 Flow Rate FiO2 02/23/17 08:00 97.7 105 27 127/98 100 Mechanical Ventilator 40 02/23/17 07:16 104 24 40 02/23/17 04:32 94 20 40 02/23/17 04:00 40 02/23/17 04:00 97.3 99 20 125/56 99 Mechanical Ventilator 40 02/23/17 03:52 89 02/23/17 02:47 96 20 40 02/23/17 01:15 94 20 40 02/23/17 00:00 40 02/23/17 00:00 94 02/23/17 00:00 97.8 97 20 116/70 97 Mechanical Ventilator 40 02/22/17 23:25 97 20 40 02/22/17 21:25 94 20 40 02/22/17 20:00 40 02/22/17 20:00 97.5 94 20 101/87 99 Mechanical Ventilator 40 02/22/17 20:00 96 02/22/17 19:21 96 20 40 02/22/17 17:04 97 20 40 02/22/17 16:00 98.2 95 18 118/62 99 Mechanical Ventilator 40 02/22/17 16:00 40 02/22/17 16:00 100 02/22/17 14:50 94 20 100 Mechanical Ventilator 40 02/22/17 14:40 94 20 99 Mechanical Ventilator 40 02/22/17 14:38 94 20 40 02/22/17 13:17 86 20 40 02/22/17 12:00 40 9/23/17 12:00 97.4 94 18 115/66 100 Mechanical Ventilator 40 02/22/17 12:00 89 02/22/17 11:24 96 22 40 02/22/17 10:35 97 20 40 02/22/17 08:39 83 Labs: Labs Test 02/22/17 07:30 White Blood Count 20.2 K/UL (4.8-10.8) Red Blood Count 3.88 M/UL (4.20-5.40) Hemoglobin 11.5 G/DL (12.0-16.0) Hematocrit 34.8 % (37.0-47.0) Mean Corpuscular Volume 90 FL (80-99) Mean Corpuscular Hemoglobin 29.5 PG (27.0-31.0) Mean Corpuscular Hemoglobin Concent 33.0 G/DL (32.0-36.0) Red Cell Distribution Width 15.8 % (11.6-14.8) Platelet Count 309 K/UL (150-450) Mean Platelet Volume 7.4 FL (6.5-10.1) Neutrophils (%) (Auto) % (45.0-75.0) Lymphocytes (%) (Auto) % (20.0-45.0) Monocytes (%) (Auto) % (1.0-10.0) Eosinophils (%) (Auto) % (0.0-3.0) Basophils (%) (Auto) % (0.0-2.0) Differential Total Cells Counted 100 Neutrophils % (Manual) 90 % (45-75) Lymphocytes % (Manual) 4 % (20-45) Monocytes % (Manual) 3 % (1-10) Eosinophils % (Manual) 0 % (0-3) Basophils % (Manual) 0 % (0-2) Band Neutrophils 3 % (0-8) Platelet Estimate Adequate Platelet Morphology Normal Anisocytosis 1+ Acanthocytes 1+ Sodium Level 150 mEQ/L (135-145) Potassium Level 4.4 mEQ/L (3.4-4.9) Chloride Level 115 mEQ/L (98-107) Carbon Dioxide Level 25 mEQ/L (20-30) Anion Gap 10 (5-15) Blood Urea Nitrogen 72 mg/dL (7-23) Creatinine 0.5 mg/dL (0.5-0.9) Estimat Glomerular Filtration Rate > 60 mL/min (>60) Glucose Level 109 mg/dL (74-106) Calcium Level 7.3 mg/dL (8.6-10.2) Objective: WDWN chronically ill and poorly responsive coarse breath sounds bilaterally [id number] without MRG NABS nontender no HSM; GT no CC noted edema- diffuse poor LOC trach Accucheck: 190 AMALIA HUGO Feb 23, 2017 08:33
--- NOTE | 2017-02-23 08:59 | Infectious Diseases Prog Note ---
Assessment/Plan Assessment/Plan A 1. aspiration pneumonia 2. Anasarca 3. leucocytosis improving 4. metastatic breast cancer 5. respiratory failure 6. VRE colonization 7. Fungal UTI P 1. discontinue Fluconazole , continue meropenem 2. will follow up cultures Subjective ROS Limited/Unobtainable: Yes Allergies: Coded Allergies: No Known Allergies (Unverified , 02/11/17) Objective Vital Signs Last 24 Hour Vital Signs Date Time Temp Pulse Resp B/P (MAP) Pulse Ox O2 Delivery O2 Flow Rate FiO2 02/23/17 08:00 40 02/23/17 08:00 97.7 105 27 127/98 100 Mechanical Ventilator 40 02/23/17 08:00 105 02/23/17 07:16 104 24 40 02/23/17 04:32 94 20 40 02/23/17 04:00 40 02/23/17 04:00 97.3 99 20 125/56 99 Mechanical Ventilator 40 02/23/17 03:52 89 02/23/17 02:47 96 20 40 02/23/17 01:15 94 20 40 02/23/17 00:00 40 02/23/17 00:00 94 02/23/17 00:00 97.8 97 20 116/70 97 Mechanical Ventilator 40 02/22/17 23:25 97 20 40 02/22/17 21:25 94 20 40 02/22/17 20:00 40 02/22/17 20:00 97.5 94 20 101/87 99 Mechanical Ventilator 40 02/22/17 20:00 96 02/22/17 19:21 96 20 40 02/22/17 17:04 97 20 40 02/22/17 16:00 98.2 95 18 118/62 99 Mechanical Ventilator 40 02/22/17 16:00 40 02/22/17 16:00 100 02/22/17 14:50 94 20 100 Mechanical Ventilator 40 02/22/17 14:40 94 20 99 Mechanical Ventilator 40 02/22/17 14:38 94 20 40 02/22/17 13:17 86 20 40 02/22/17 12:00 40 02/22/17 12:00 97.4 94 18 115/66 100 Mechanical Ventilator 40 02/22/17 12:00 89 02/22/17 11:24 96 22 40 02/22/17 10:35 97 20 40 Height (Feet): 5 Height (Inches): 3.00 Weight (Pounds): 162 General Appearance: no acute distress HEENT: status post trach Respiratory/Chest: rhonchi - bilaterally, other - on ventilator Cardiovascular: tachycardia, other - right site port Abdomen: soft, non tender, other - GT Extremities: other - anasarca Neurologic/Psychiatric: alert, responsive Current Medications Medications (Trade) Dose Ordered Sig/Colleen Route PRN Reason Start Time Stop Time Status Last Admin Dose Admin Acetaminophen (Tylenol) 650 mg Q4H PRN GT Mild Pain/Temp > 100.5 02/21/17 14:45 03/13/17 22:44 02/22/17 14:34 Al Hydroxide/Mg Hydroxide (Mylanta) 30 ml Q4H PRN GT Abdominal cramps 02/21/17 14:00 03/13/17 13:59 Albuterol/ Ipratropium (DuoNeb 0.5-3(2.5)mg/3ml) 3 ml Q4H PRN HHN Shortness of Breath 02/22/17 14:30 02/27/17 14:29 02/22/17 14:41 Ascorbic Acid (Vitamin C) 500 mg DAILY ORAL 02/22/17 09:00 03/20/17 08:59 02/22/17 09:01 Aspirin (ASA) 81 mg DAILY GT 02/22/17 09:00 03/14/17 08:59 02/22/17 09:02 Brimonidine Tartrate (Alphagan) 1 drop Q8HR RIGHT EYE 02/21/17 14:00 03/14/17 13:59 02/23/17 06:18 Chlorhexidine Gluconate (Patricia-Hex 2%) 1 applic QHS TOPIC 02/21/17 21:00 03/15/17 20:59 02/22/17 21:01 Dextrose (Dextrose 50%) STAT PRN IV Hypoglycemia 02/21/17 14:00 03/13/17 13:59 Docusate Sodium (Colace) 100 mg DAILY GT 02/22/17 09:00 03/14/17 08:59 Dorzolamide HCl (Trusopt) 1 drop EVERY 8 HOURS RIGHT EYE 02/21/17 14:00 03/14/17 13:59 02/23/17 06:17 Ferrous Sulfate (Feosol) 300 mg THREE TIMES A DAY GT 02/21/17 18:00 03/14/17 08:59 02/22/17 17:12 Fluconazole (Diflucan) 100 mg DAILY GT 02/22/17 09:00 02/24/17 14:29 02/22/17 09:01 Heparin Sodium (Porcine) (Heparin 5000 units/ml) 5,000 units Q12HR SUBQ 02/21/17 21:00 03/18/17 08:59 02/22/17 21:01 Insulin Aspart (NovoLOG) EVERY 6 HOURS SUBQ 02/21/17 18:00 03/20/17 20:59 02/23/17 06:19 Insulin Detemir (Levemir) 5 units Q12HR SUBQ 02/21/17 21:00 03/20/17 20:59 02/22/17 21:02 Lansoprazole (Prevacid) 30 mg DAILY GT 02/22/17 09:00 03/14/17 08:59 02/22/17 09:01 Meropenem 1 gm/ Sodium Chloride 110 ml @ 220 mls/hr Q8HR IVPB 02/22/17 14:00 02/25/17 13:59 02/23/17 06:18 Ondansetron HCl (Zofran) 4 mg Q6H PRN IVP Nausea & Vomiting 02/21/17 14:00 03/13/17 13:59 SEVERINO MOREL Feb 23, 2017 08:59
[2017-02-23] MEDS: Aspirin Baby 81mg GT SCH (09:22)
[2017-02-23] MEDS: Docusate 100mg/10ml Liq GT SCH (09:23)
[2017-02-23] MEDS: Ascorbic Acid 500mg tab ORAL SCH (09:23)
[2017-02-23] MEDS: Ferrous Sulfate 300 MG/5 ML UDC GT SCH ×3 (09:23→18:18)
[2017-02-23] MEDS: Levemir Flexpen SUBQ SCH ×2 (09:25→20:52)
[2017-02-23] MEDS: Heparin 5000 units/ml inj SUBQ SCH ×2 (09:26→20:55)
[2017-02-23 12:00] VITALS: BP 116/77
[2017-02-23 16:00] VITALS: BP 137/111
[2017-02-23 20:21] VITALS: BP 121/79
[2017-02-23] MEDS: Dyna-Hex 2% Top Sol 2oz TOPIC SCH (20:46)
[2017-02-23] MEDS: Acetaminophen 650mg/20.3ml GT PRN (21:33)
[2017-02-24] MEDS: NovoLOG Insulin Flexpen SUBQ SCH ×5 (00:11→23:42)
[2017-02-24 00:17] VITALS: BP 113/88
[2017-02-24 04:00] VITALS: BP 129/84
[2017-02-24] MEDS: Meropenem 1 GM in NS 110 ML IVPB SCH ×3 (05:31→22:05)
[2017-02-24] MEDS: Dorzolamide 2% 10ml Btl RIGHT EYE SCH ×3 (05:31→22:05)
[2017-02-24] MEDS: Brimonidine 0.2% Opth Sol RIGHT EYE SCH ×3 (05:31→22:05)
[2017-02-24 05:36] LABS: MEAN CORPUSCULAR HEMOGLOBIN 30.3 PG (27.0-31.0); MEAN CORPUSCULAR HGB CONC 33.1 G/DL (32.0-36.0); MEAN CORPUSCULAR VOLUME 91 FL (80-99); MEAN PLATELET VOLUME 8.4 FL (6.5-10.1); PLATELET COUNT 306 K/UL (150-450); RED BLOOD COUNT 3.73 M/UL (4.20-5.40); RED CELL DISTRIBUTION WIDTH 15.7 % (11.6-14.8); WHITE BLOOD COUNT 19.8 K/UL (4.8-10.8)
[2017-02-24 07:00] LABS: ANION GAP 13 (5-15); CALCIUM 7.5 mg/dL (8.6-10.2); CARBON DIOXIDE 24 mEQ/L (20-30); CHLORIDE 114 mEQ/L (98-107); CREATININE 0.6 mg/dL (0.5-0.9); GLOMERULAR FILTRATION RATE > 60 mL/min (>60); HEMOLYSIS 0; POTASSIUM 4.8 mEQ/L (3.4-4.9); SODIUM 151 mEQ/L (135-145)
[2017-02-24 07:36] LABS: BAND NEUTROPHILS % (MANUAL) 25 % (0-8); LYMPHOCYTES % (MANUAL) 7 % (20-45); METAMYELOCYTES % 1 % (0-0); NEUTROPHILS % (MANUAL) 65 % (45-75); TOTAL CELLS COUNTED 100
[2017-02-24 07:37] LABS: ANISOCYTOSIS 1+; BASOPHILS % (MANUAL) 0 % (0-2); EOSINOPHILS % (MANUAL) 0 % (0-3); PLATELET ESTIMATE ADEQUATE; PLATELET MORPHOLOGY NORMAL
[2017-02-24 08:00] VITALS: BP 121/73
--- NOTE | 2017-02-24 08:32 | Critical Care Progress Note ---
Assessment/Plan Assessment/Plan IMPRESSION Sepsis respiratory failure anasarca CRF possible gastroparesis metastatic breast ca leukocytosis acidemia hyperkalemia anemia hypernatremia acute renal failure PLAN prognosis poor maintain meds feeds tolerated ID evaluation noted IV antibiotics followup labs noted; and cxr followup final cultures per ID nutrition as able free water without improvement start hypotonic fluids adjust ventilator as needed; monitor PIP follow up ABG- noted; adequate exchange hope to discuss with family as to comfort care medications/laboratory data/nursing notes reviewed in detail note reviewed and edited Critical Care - Subjective Interval Events: worsening azotemia ROS Limited/Unobtainable: Yes Condition: critical EKG Rhythm: Sinus Rhythm Residuals: minimal Tube Feeding Tolerated: yes Critical Care - Objective Last 24 Hour Vital Signs Date Time Temp Pulse Resp B/P (MAP) Pulse Ox O2 Delivery O2 Flow Rate FiO2 02/24/17 08:00 40 02/24/17 07:25 120 20 40 02/24/17 04:49 112 25 40 02/24/17 04:00 94 02/24/17 04:00 97.3 115 22 129/84 96 Mechanical Ventilator 40 02/24/17 04:00 40 02/24/17 03:30 108 29 40 02/24/17 01:30 110 24 40 02/24/17 00:17 98.4 107 23 113/88 98 Mechanical Ventilator 40 02/24/17 00:00 100 02/23/17 23:14 104 25 40 02/23/17 21:27 115 22 40 02/23/17 20:21 98.0 114 21 121/79 100 Mechanical Ventilator 40 02/23/17 20:00 86 02/23/17 20:00 40 02/23/17 19:30 118 24 40 02/23/17 16:56 122 21 40 02/23/17 16:00 40 02/23/17 16:00 99.3 119 21 137/111 100 Mechanical Ventilator 40 02/23/17 15:48 94 02/23/17 15:22 101 23 40 02/23/17 13:16 105 21 40 02/23/17 12:00 97.7 105 21 116/77 100 Mechanical Ventilator 40 02/23/17 12:00 40 02/23/17 12:00 95 02/23/17 11:22 105 22 40 02/23/17 09:09 102 23 40 Objective: WDWN chronically ill and poorly responsive coarse breath sounds bilaterally [id number] without MRG NABS nontender no HSM; GT no CC noted edema- diffuse poor LOC trach Accucheck: 197 AMALIA HUGO Feb 24, 2017 08:32
[2017-02-24] MEDS: Docusate 100mg/10ml Liq GT SCH (09:10)
[2017-02-24] MEDS: Aspirin Baby 81mg GT SCH (09:10)
[2017-02-24] MEDS: Ferrous Sulfate 300 MG/5 ML UDC GT SCH ×3 (09:10→17:33)
[2017-02-24] MEDS: Ascorbic Acid 500mg tab ORAL SCH (09:10)
[2017-02-24] MEDS: Heparin 5000 units/ml inj SUBQ SCH ×2 (09:11→21:08)
[2017-02-24] MEDS: Levemir Flexpen SUBQ SCH ×2 (09:12→21:09)
--- NOTE | 2017-02-24 10:36 | Infectious Diseases Prog Note ---
"Assessment/Plan Assessment/Plan antibiotics : meropenem A 1. aspiration pneumonia with klebsiella | proteus 2. fungal UTI s/p rx 3. leucocytosis improving 4. metastatic breast cancer 5. respiratory failure 6. anasarca P 1. continue meropenem 3 more days 2. will follow up cultures Subjective ROS Limited/Unobtainable: Yes Allergies: Coded Allergies: No Known Allergies (Unverified , 02/11/17) Objective Vital Signs Last 24 Hour Vital Signs Date Time Temp Pulse Resp B/P (MAP) Pulse Ox O2 Delivery O2 Flow Rate FiO2 02/24/17 08:40 84 21 40 02/24/17 08:00 40 02/24/17 07:34 101 02/24/17 07:25 120 20 40 02/24/17 04:49 112 25 40 02/24/17 04:00 94 02/24/17 04:00 97.3 115 22 129/84 96 Mechanical Ventilator 40 02/24/17 04:00 40 02/24/17 03:30 108 29 40 02/24/17 01:30 110 24 40 02/24/17 00:17 98.4 107 23 113/88 98 Mechanical Ventilator 40 02/24/17 00:00 100 02/23/17 23:14 104 25 40 02/23/17 21:27 115 22 40 02/23/17 20:21 98.0 114 21 121/79 100 Mechanical Ventilator 40 02/23/17 20:00 86 02/23/17 20:00 40 02/23/17 19:30 118 24 40 02/23/17 16:56 122 21 40 02/23/17 16:00 40 02/23/17 16:00 99.3 119 21 137/111 100 Mechanical Ventilator 40 02/23/17 15:48 94 02/23/17 15:22 101 23 40 02/23/17 13:16 105 21 40 02/23/17 12:00 97.7 105 21 116/77 100 Mechanical Ventilator 40 02/23/17 12:00 40 02/23/17 12:00 95 02/23/17 11:22 105 22 40 Height (Feet): 5 Height (Inches): 3.00 Weight (Pounds): 160 HEENT: status post trach Respiratory/Chest: lungs clear Cardiovascular: normal rate, regular rhythm, no gallop/murmur Abdomen: soft, non tender, other - GT Extremities: other - + edema Laboratory Tests Test 02/24/17 03:35 White Blood Count 19.8 K/UL (4.8-10.8) H Red Blood Count 3.73 M/UL (4.20-5.40) L Hemoglobin 11.3 G/DL (12.0-16.0) L Hematocrit 34.1 % (37.0-47.0) L Mean Corpuscular Volume 91 FL (80-99) Mean Corpuscular Hemoglobin 30.3 PG (27.0-31.0) Mean Corpuscular Hemoglobin Concent 33.1 G/DL (32.0-36.0) Red Cell Distribution Width 15.7 % (11.6-14.8) H Platelet Count 306 K/UL (150-450) Mean Platelet Volume 8.4 FL (6.5-10.1) Neutrophils (%) (Auto) % (45.0-75.0) Lymphocytes (%) (Auto) % (20.0-45.0) Monocytes (%) (Auto) % (1.0-10.0) Eosinophils (%) (Auto) % (0.0-3.0) Basophils (%) (Auto) % (0.0-2.0) Differential Total Cells Counted 100 Neutrophils % (Manual) 65 % (45-75) Lymphocytes % (Manual) 7 % (20-45) L Monocytes % (Manual) 2 % (1-10) Eosinophils % (Manual) 0 % (0-3) Basophils % (Manual) 0 % (0-2) Metamyelocytes % 1 % (0-0) H Band Neutrophils 25 % (0-8) H Platelet Estimate Adequate Platelet Morphology Normal Anisocytosis 1+ Sodium Level 151 mEQ/L (135-145) H Potassium Level 4.8 mEQ/L (3.4-4.9) Chloride Level 114 mEQ/L (98-107) H Carbon Dioxide Level 24 mEQ/L (20-30) Anion Gap 13 (5-15) Blood Urea Nitrogen 83 mg/dL (7-23) H Creatinine 0.6 mg/dL (0.5-0.9) Estimat Glomerular Filtration Rate > 60 mL/min (>60) Glucose Level 167 mg/dL (74-106) H Calcium Level 7.5 mg/dL (8.6-10.2) L TERRY CH Feb 24, 2017 10:36"
[2017-02-24 12:00] VITALS: BP 97/54
--- NOTE | 2017-02-24 13:41 | Wound Care Consultation ---
Wound Assessment Wound Assessment : Wound Number: 1 Wound Present on Admission: Yes New Wound: No Status Change of Wound: No Wound Location Body Site Modif: mid Wound Location Body Site: sacral Wound Type: pressure ulcer Valerie Test: Does not Valerie Pressure Ulcer Stage: IV/unstageable Wound Thickness: Full Thickness Wound Length: 3.0 Wound Width: 2.0 Wound Depth: utd Percent of Wound Bed Yellow/Wh: 100 Wound Drainage Description: Serosanguineous Wound Drainage Amount: Scant Wound Drainage Odor: None/Absent Tissue Surrounding Wound: Macerated Wound General Appearance: Draining, Necrotic Wound Comment #1 Sacral unstageable pressure ulcer. Smaller in size. 100% yellow in color. will change treatment to Santyl ointment. #2 Left ischial tuberosity stage II pressure ulcer. Resolved. #3 Left and right iliac crest scattered denuded skin with partial thickness skin loss Resolving #4 Right back area with sutures and willie. Follow MD order #5 Multiple discolorations on both arms Good progress noted at this time. Recommendation -Sacral unstageable pressure ulcer, Cleanse with saline, pat dry, apply skin barrier film to avril wound, apply Santyl ointment to wound bed, secure with bordered gauze daily and PRN soiled/ dislodged -Turn and reposition -Offload both heel -Heel protector on both heels -Optimize nutrition -Keep clean and dry -Low air loss mattress -Assess and f/u accordingly for any changes ALANNAH ROLLINS RN Feb 24, 2017 13:41
[2017-02-24] MEDS ORDERED: NS 275ml ONE (14:24)
[2017-02-24] MEDS ORDERED: Tubing IV Secondary IV ONE (14:24)
[2017-02-24 16:00] VITALS: BP 107/63
[2017-02-24] MEDS ORDERED: Amiodarone 150mg/ml 3ml Amp ONE (16:53)
[2017-02-24 20:00] VITALS: BP 133/72
[2017-02-24] MEDS: Dyna-Hex 2% Top Sol 2oz TOPIC SCH (21:09)
[2017-02-25] VITALS (7 sets, daily range): BP systolic 100–121; BP diastolic 63–77
[2017-02-25 04:54] LABS: MEAN CORPUSCULAR HEMOGLOBIN 28.8 PG (27.0-31.0); MEAN CORPUSCULAR HGB CONC 31.7 G/DL (32.0-36.0); MEAN CORPUSCULAR VOLUME 91 FL (80-99); MEAN PLATELET VOLUME 8.9 FL (6.5-10.1); PLATELET COUNT 296 K/UL (150-450); RED BLOOD COUNT 3.65 M/UL (4.20-5.40); RED CELL DISTRIBUTION WIDTH 15.4 % (11.6-14.8); WHITE BLOOD COUNT 18.8 K/UL (4.8-10.8)
[2017-02-25 05:23] LABS: ANION GAP 11 (5-15); CALCIUM 7.4 mg/dL (8.6-10.2); CARBON DIOXIDE 25 mEQ/L (20-30); CHLORIDE 114 mEQ/L (98-107); CREATININE 0.5 mg/dL (0.5-0.9); GLOMERULAR FILTRATION RATE > 60 mL/min (>60); HEMOLYSIS 0; POTASSIUM 4.6 mEQ/L (3.4-4.9); SODIUM 150 mEQ/L (135-145)
[2017-02-25] MEDS: Dorzolamide 2% 10ml Btl RIGHT EYE SCH ×3 (05:33→22:19)
[2017-02-25] MEDS: Meropenem 1 GM in NS 110 ML IVPB SCH ×3 (05:33→23:46)
[2017-02-25] MEDS: Brimonidine 0.2% Opth Sol RIGHT EYE SCH ×3 (05:34→22:19)
[2017-02-25] MEDS: NovoLOG Insulin Flexpen SUBQ SCH ×3 (05:40→17:24)
--- NOTE | 2017-02-25 08:27 | Critical Care Progress Note ---
Assessment/Plan Assessment/Plan IMPRESSION Sepsis respiratory failure anasarca CRF possible gastroparesis metastatic breast ca leukocytosis acidemia hyperkalemia anemia hypernatremia acute renal failure PLAN prognosis poor maintain meds feeds tolerated ID evaluation noted IV antibiotics nutrition as able free water hypotonic fluids adjust ventilator as needed; monitor PIP follow up ABG- noted; adequate exchange hope to discuss with family as to comfort care dc to snf medications/laboratory data/nursing notes reviewed in detail note reviewed and edited Critical Care - Subjective Interval Events: minimal improvement ROS Limited/Unobtainable: Yes EKG Rhythm: Sinus Rhythm Residuals: minimal Tube Feeding Tolerated: yes Critical Care - Objective Last 24 Hour Vital Signs Date Time Temp Pulse Resp B/P (MAP) Pulse Ox O2 Delivery O2 Flow Rate FiO2 02/25/17 06:42 96 21 40 02/25/17 05:29 99 26 40 02/25/17 04:00 40 02/25/17 04:00 97.9 101 20 107/63 100 Mechanical Ventilator 40 02/25/17 04:00 101 02/25/17 03:13 100 22 40 02/25/17 01:35 91 23 40 02/25/17 00:00 98.0 99 20 121/77 100 Mechanical Ventilator 40 02/25/17 00:00 99 02/25/17 00:00 40 02/24/17 23:27 89 23 40 02/24/17 21:07 98 22 40 02/24/17 20:00 101 23 40 02/24/17 20:00 97.7 100 20 133/72 100 Mechanical Ventilator 40 02/24/17 20:00 100 02/24/17 20:00 40 02/24/17 16:39 97 20 40 02/24/17 16:00 97.4 99 20 107/63 100 Mechanical Ventilator 40 02/24/17 16:00 97 02/24/17 16:00 40 02/24/17 15:09 96 21 40 02/24/17 12:58 80 20 40 02/24/17 12:00 97.8 102 20 97/54 100 Mechanical Ventilator 40 02/24/17 12:00 40 02/24/17 11:53 116 02/24/17 11:29 55 21 40 02/24/17 08:40 84 21 40 Objective: WDWN chronically ill and poorly responsive coarse breath sounds bilaterally [id number] without MRG NABS nontender no HSM; GT no CC noted edema- diffuse poor LOC trach Accucheck: 112 AMALIA HUGO Feb 25, 2017 08:27
[2017-02-25 08:31] LABS: BAND NEUTROPHILS % (MANUAL) 41 % (0-8); LYMPHOCYTES % (MANUAL) 6 % (20-45); METAMYELOCYTES % 2 % (0-0); NEUTROPHILS % (MANUAL) 49 % (45-75); TOTAL CELLS COUNTED 100
[2017-02-25 08:32] LABS: ANISOCYTOSIS 1+; BASOPHILS % (MANUAL) 0 % (0-2); EOSINOPHILS % (MANUAL) 0 % (0-3); PLATELET ESTIMATE ADEQUATE; PLATELET MORPHOLOGY NORMAL
[2017-02-25] MEDS: Aspirin Baby 81mg GT SCH (08:57)
[2017-02-25] MEDS: Docusate 100mg/10ml Liq GT SCH (08:57)
[2017-02-25] MEDS: Ferrous Sulfate 300 MG/5 ML UDC GT SCH ×3 (08:57→17:24)
[2017-02-25] MEDS: Ascorbic Acid 500mg tab ORAL SCH (08:57)
[2017-02-25] MEDS: Levemir Flexpen SUBQ SCH ×2 (08:59→20:21)
[2017-02-25] MEDS: Heparin 5000 units/ml inj SUBQ SCH ×2 (09:03→20:16)
--- NOTE | 2017-02-25 12:08 | Diagnostic Imaging Report ---
Indication: Dyspnea Comparison: 02/22/17 A single view chest radiograph was obtained. Findings: Bilateral infiltrates are demonstrated. Disease is extensive and patchy with involvement of the mid to lower lung oreilly primarily. Heart is obscured by lung disease but is probably normal in size. Tubes and lines are stable. Impression: Extensive bilateral infiltrates. No interval change
--- NOTE | 2017-02-25 12:59 | Infectious Diseases Prog Note ---
Assessment/Plan Assessment/Plan A 1. aspiration pneumonia 2. Anasarca 3. leucocytosis improving 4. metastatic breast cancer 5. respiratory failure 6. VRE colonization 7. Fungal UTI s/p Rx P 1. continue meropenem 2. poor prognosis Subjective ROS Limited/Unobtainable: Yes Allergies: Coded Allergies: No Known Allergies (Unverified , 02/11/17) Objective Vital Signs Last 24 Hour Vital Signs Date Time Temp Pulse Resp B/P (MAP) Pulse Ox O2 Delivery O2 Flow Rate FiO2 02/25/17 10:40 95 21 40 02/25/17 08:58 99 22 40 02/25/17 08:00 94 02/25/17 08:00 40 02/25/17 08:00 98.1 95 20 117/72 96 Mechanical Ventilator 40 02/25/17 06:42 96 21 40 02/25/17 05:29 99 26 40 02/25/17 04:00 40 02/25/17 04:00 97.9 101 20 107/63 100 Mechanical Ventilator 40 02/25/17 04:00 101 02/25/17 03:13 100 22 40 02/25/17 01:35 91 23 40 02/25/17 00:00 98.0 99 20 121/77 100 Mechanical Ventilator 40 02/25/17 00:00 99 02/25/17 00:00 40 02/24/17 23:27 89 23 40 02/24/17 21:07 98 22 40 02/24/17 20:00 101 23 40 02/24/17 20:00 97.7 100 20 133/72 100 Mechanical Ventilator 40 02/24/17 20:00 100 02/24/17 20:00 40 02/24/17 16:39 97 20 40 02/24/17 16:00 97.4 99 20 107/63 100 Mechanical Ventilator 40 02/24/17 16:00 97 02/24/17 16:00 40 02/24/17 15:09 96 21 40 02/24/17 12:58 80 20 40 Height (Feet): 5 Height (Inches): 3.00 Weight (Pounds): 160 HEENT: status post trach Respiratory/Chest: lungs clear, other - on ventilator Cardiovascular: normal rate, other - Portacath Abdomen: other - GT in place Extremities: other - anasarca Neurologic/Psychiatric: other - opens eyes Laboratory Tests Test 02/25/17 04:00 White Blood Count 18.8 K/UL (4.8-10.8) H Red Blood Count 3.65 M/UL (4.20-5.40) L Hemoglobin 10.5 G/DL (12.0-16.0) L Hematocrit 33.1 % (37.0-47.0) L Mean Corpuscular Volume 91 FL (80-99) Mean Corpuscular Hemoglobin 28.8 PG (27.0-31.0) Mean Corpuscular Hemoglobin Concent 31.7 G/DL (32.0-36.0) L Red Cell Distribution Width 15.4 % (11.6-14.8) H Platelet Count 296 K/UL (150-450) Mean Platelet Volume 8.9 FL (6.5-10.1) Neutrophils (%) (Auto) % (45.0-75.0) Lymphocytes (%) (Auto) % (20.0-45.0) Monocytes (%) (Auto) % (1.0-10.0) Eosinophils (%) (Auto) % (0.0-3.0) Basophils (%) (Auto) % (0.0-2.0) Differential Total Cells Counted 100 Neutrophils % (Manual) 49 % (45-75) Lymphocytes % (Manual) 6 % (20-45) L Monocytes % (Manual) 2 % (1-10) Eosinophils % (Manual) 0 % (0-3) Basophils % (Manual) 0 % (0-2) Metamyelocytes % 2 % (0-0) H Band Neutrophils 41 % (0-8) H Platelet Estimate Adequate Platelet Morphology Normal Anisocytosis 1+ Sodium Level 150 mEQ/L (135-145) H Potassium Level 4.6 mEQ/L (3.4-4.9) Chloride Level 114 mEQ/L (98-107) H Carbon Dioxide Level 25 mEQ/L (20-30) Anion Gap 11 (5-15) Blood Urea Nitrogen 79 mg/dL (7-23) H Creatinine 0.5 mg/dL (0.5-0.9) Estimat Glomerular Filtration Rate > 60 mL/min (>60) Glucose Level 31 mg/dL (74-106) #*L Calcium Level 7.4 mg/dL (8.6-10.2) L Current Medications Medications (Trade) Dose Ordered Sig/Colleen Route PRN Reason Start Time Stop Time Status Last Admin Dose Admin Acetaminophen (Tylenol) 650 mg Q4H PRN GT Mild Pain/Temp > 100.5 02/21/17 14:45 03/13/17 22:44 02/23/17 21:33 Al Hydroxide/Mg Hydroxide (Mylanta) 30 ml Q4H PRN GT Abdominal cramps 02/21/17 14:00 03/13/17 13:59 Albuterol/ Ipratropium (DuoNeb 0.5-3(2.5)mg/3ml) 3 ml Q4H PRN HHN Shortness of Breath 02/22/17 14:30 02/27/17 14:29 02/22/17 14:41 Ascorbic Acid (Vitamin C) 500 mg DAILY ORAL 02/22/17 09:00 03/20/17 08:59 02/25/17 08:57 Aspirin (ASA) 81 mg DAILY GT 02/22/17 09:00 03/14/17 08:59 02/25/17 08:57 Brimonidine Tartrate (Alphagan) 1 drop Q8HR RIGHT EYE 02/21/17 14:00 03/14/17 13:59 02/25/17 05:34 Chlorhexidine Gluconate (Patricia-Hex 2%) 1 applic QHS TOPIC 02/21/17 21:00 03/15/17 20:59 02/24/17 21:09 Collagenase (Santyl) 1 applic DAILY TOPIC 02/24/17 15:00 03/26/17 14:59 02/25/17 08:58 Dextrose (Dextrose 50%) STAT PRN IV Hypoglycemia 02/21/17 14:00 03/13/17 13:59 02/25/17 12:45 Docusate Sodium (Colace) 100 mg DAILY GT 02/22/17 09:00 03/14/17 08:59 02/25/17 08:57 Dorzolamide HCl (Trusopt) 1 drop EVERY 8 HOURS RIGHT EYE 02/21/17 14:00 03/14/17 13:59 02/25/17 05:33 Ferrous Sulfate (Feosol) 300 mg THREE TIMES A DAY GT 02/21/17 18:00 03/14/17 08:59 02/25/17 12:26 Heparin Sodium (Porcine) (Heparin 5000 units/ml) 5,000 units Q12HR SUBQ 02/21/17 21:00 03/18/17 08:59 02/25/17 09:03 Insulin Aspart (NovoLOG) EVERY 6 HOURS SUBQ 02/21/17 18:00 03/20/17 20:59 02/24/17 17:37 Insulin Detemir (Levemir) 5 units Q12HR SUBQ 02/21/17 21:00 03/20/17 20:59 02/24/17 21:09 Lansoprazole (Prevacid) 30 mg DAILY GT 02/22/17 09:00 03/14/17 08:59 02/25/17 08:57 Meropenem 1 gm/ Sodium Chloride 110 ml @ 220 mls/hr Q8HR IVPB 02/24/17 14:00 02/27/17 13:59 02/25/17 05:33 Ondansetron HCl (Zofran) 4 mg Q6H PRN IVP Nausea & Vomiting 02/21/17 14:00 03/13/17 13:59 02/23/17 10:07 Sodium Chloride 1,000 ml @ 100 mls/hr Q10H IV 02/24/17 09:00 03/26/17 08:59 02/25/17 05:01 SEVERINO MOREL Feb 25, 2017 12:59
[2017-02-25] MEDS ORDERED: 1/2 NS 1000ml IV ONE (16:33)
[2017-02-25] MEDS: Dyna-Hex 2% Top Sol 2oz TOPIC SCH (20:35)
--- NOTE | 2017-02-25 20:56 | General Progress Note ---
Assessment/Plan Assessment/Plan Assessment - TF intolerance / leak , due to overall poor health - Met BRCA - Resp failure - Anasarca - Hypernatremia / free water deficit - hypoglycemia Recommendations - d/c FeSO4 - PPI - IV D5 W - Hold long acting insulin until TF restarted - follow labs - add empiric flagyl - agree with termial care Subjective Allergies: Coded Allergies: No Known Allergies (Unverified , 02/11/17) Objective Last 24 Hour Vital Signs Date Time Temp Pulse Resp B/P (MAP) Pulse Ox O2 Delivery O2 Flow Rate FiO2 02/25/17 20:00 40 02/25/17 20:00 97.3 92 22 113/72 97 Mechanical Ventilator 40 02/25/17 19:28 93 21 40 02/25/17 16:36 88 21 40 02/25/17 16:00 98.1 90 20 109/73 96 Mechanical Ventilator 40 02/25/17 16:00 40 02/25/17 16:00 90 02/25/17 14:58 85 20 40 02/25/17 12:42 98 22 40 02/25/17 12:00 40 02/25/17 12:00 97.5 95 20 110/66 96 Mechanical Ventilator 40 02/25/17 12:00 87 02/25/17 10:40 95 21 40 02/25/17 08:58 99 22 40 02/25/17 08:00 94 02/25/17 08:00 40 02/25/17 08:00 98.1 95 20 117/72 96 Mechanical Ventilator 40 02/25/17 06:42 96 21 40 02/25/17 05:29 99 26 40 02/25/17 04:00 40 02/25/17 04:00 97.9 101 20 107/63 100 Mechanical Ventilator 40 02/25/17 04:00 101 02/25/17 03:13 100 22 40 02/25/17 01:35 91 23 40 02/25/17 00:00 98.0 99 20 121/77 100 Mechanical Ventilator 40 02/25/17 00:00 99 02/25/17 00:00 40 02/24/17 23:27 89 23 40 02/24/17 21:07 98 22 40 Intake and Output 02/25/17 02/26/17 19:00 07:00 Intake Total 1030 ml Output Total 250 ml Balance 780 ml IV Total 1030 ml Output Urine Total 250 ml # Bowel Movements 4 1 Laboratory Tests 02/25/17 04:00: White Blood Count 18.8H, Red Blood Count 3.65L, Hemoglobin 10.5L, Hematocrit 33.1L, Mean Corpuscular Volume 91, Mean Corpuscular Hemoglobin 28.8, Mean Corpuscular Hemoglobin Concent 31.7L, Red Cell Distribution Width 15.4H, Platelet Count 296, Mean Platelet Volume 8.9, Neutrophils (%) (Auto) , Lymphocytes (%) (Auto) , Monocytes (%) (Auto) , Eosinophils (%) (Auto) , Basophils (%) (Auto) , Differential Total Cells Counted 100, Neutrophils % ( Manual) 49, Lymphocytes % (Manual) 6L, Monocytes % (Manual) 2, Eosinophils % ( Manual) 0, Basophils % (Manual) 0, Metamyelocytes % 2H, Band Neutrophils 41H, Platelet Estimate Adequate, Platelet Morphology Normal, Anisocytosis 1+, Sodium Level 150H, Potassium Level 4.6, Chloride Level 114H, Carbon Dioxide Level 25, Anion Gap 11, Blood Urea Nitrogen 79H, Creatinine 0.5, Estimat Glomerular Filtration Rate > 60, Glucose Level 31#*L, Calcium Level 7.4L Height (Feet): 5 Height (Inches): 3.00 Weight (Pounds): 160 MAYCOL LANIER Feb 25, 2017 20:56
[2017-02-25] MEDS: Acetaminophen 650mg/20.3ml GT PRN (22:18)
[2017-02-26] MEDS: Albuterol/Ipratropium 3ml neb HHN PRN ×2 (01:31→17:47)
[2017-02-26 04:00] VITALS: BP 108/72
[2017-02-26] MEDS: Dorzolamide 2% 10ml Btl RIGHT EYE SCH ×3 (05:21→21:17)
[2017-02-26] MEDS: Brimonidine 0.2% Opth Sol RIGHT EYE SCH ×3 (05:21→21:17)
[2017-02-26] MEDS: Acetaminophen 650mg/20.3ml GT PRN (05:42)
[2017-02-26] MEDS: NovoLOG Insulin Flexpen SUBQ SCH ×4 (05:43→18:03)
[2017-02-26] MEDS: Meropenem 1 GM in NS 110 ML IVPB SCH ×3 (06:34→21:20)
[2017-02-26 08:00] VITALS: BP 100/57
[2017-02-26] MEDS ORDERED: 1/2 NS 1000ml IV ONE (08:13)
[2017-02-26] MEDS ORDERED: Tubing IV Secondary IV ONE (08:13)
[2017-02-26] MEDS: Aspirin Baby 81mg GT SCH (09:23)
[2017-02-26] MEDS: Ascorbic Acid 500mg tab ORAL SCH (09:23)
[2017-02-26] MEDS: Heparin 5000 units/ml inj SUBQ SCH ×2 (09:24→21:19)
--- NOTE | 2017-02-26 11:22 | Infectious Diseases Prog Note ---
"Assessment/Plan Assessment/Plan antibiotics : meropenem, flagyl A 1. aspiration pneumonia with klebsiella | proteus 2. fungal UTI s/p rx 3. leucocytosis improving 4. metastatic breast cancer 5. respiratory failure 6. anasarca P 1. continue meropenem 2. will follow up cultures Subjective ROS Limited/Unobtainable: Yes Allergies: Coded Allergies: No Known Allergies (Unverified , 02/11/17) Objective Vital Signs Last 24 Hour Vital Signs Date Time Temp Pulse Resp B/P (MAP) Pulse Ox O2 Delivery O2 Flow Rate FiO2 02/26/17 09:50 95 20 40 02/26/17 08:00 97.3 97 22 100/57 97 Mechanical Ventilator 40 02/26/17 08:00 40 02/26/17 07:31 94 02/26/17 07:24 95 20 40 02/26/17 05:29 98 21 40 02/26/17 04:00 97.5 99 22 108/72 97 Mechanical Ventilator 40 02/26/17 04:00 40 02/26/17 04:00 100 02/26/17 03:15 97 21 40 02/26/17 01:41 99 20 100 Mechanical Ventilator 40 02/26/17 01:33 92 20 100 Mechanical Ventilator 40 02/26/17 01:00 87 21 40 02/26/17 00:00 40 02/26/17 00:00 90 02/25/17 23:54 97.5 90 20 100/68 97 Mechanical Ventilator 40 02/25/17 22:48 93 21 40 02/25/17 21:22 98 21 40 02/25/17 20:00 40 02/25/17 20:00 97.3 92 22 113/72 97 Mechanical Ventilator 40 02/25/17 20:00 90 02/25/17 19:28 93 21 40 02/25/17 16:36 88 21 40 02/25/17 16:00 98.1 90 20 109/73 96 Mechanical Ventilator 40 02/25/17 16:00 40 02/25/17 16:00 90 02/25/17 14:58 85 20 40 02/25/17 12:42 98 22 40 02/25/17 12:00 40 02/25/17 12:00 97.5 95 20 110/66 96 Mechanical Ventilator 40 02/25/17 12:00 87 Height (Feet): 5 Height (Inches): 3.00 Weight (Pounds): 162 HEENT: status post trach Respiratory/Chest: lungs clear Cardiovascular: normal rate, regular rhythm, no gallop/murmur Abdomen: soft, non tender, other - GT Extremities: other - + edema, right subclavian catheter TERRY CH Feb 26, 2017 11:22"
--- NOTE | 2017-02-26 12:06 | Diagnostic Imaging Report ---
Indication: Abdominal distention Technique: Supine view of the abdomen Comparison: Fourth Mate image from CT scan 02/11/2017 Findings: There is a gastrostomy again demonstrated. Subcutaneous fat again appears edematous. Bowel gas pattern is unremarkable. No unusual masses or calcifications the lower chest demonstrates a central venous catheter in place. There is extensive bilateral pulmonary parenchymal and pleural disease, also previously demonstrated Impression: No definite acute process Edematous subcutaneous fat, also previously reported Bilateral pulmonary parenchymal and pleural disease Central venous catheter in place
[2017-02-26 12:15] VITALS: BP 113/84
--- NOTE | 2017-02-26 14:00 | Critical Care Progress Note ---
Assessment/Plan Assessment/Plan IMPRESSION Sepsis respiratory failure anasarca CRF possible gastroparesis metastatic breast ca leukocytosis acidemia hyperkalemia anemia hypernatremia acute renal failure PLAN prognosis poor repeat labs today maintain meds feeds tolerated ID evaluation noted IV antibiotics nutrition as able free water hypotonic fluids adjust ventilator as needed; monitor PIP follow up ABG- noted; adequate exchange hope to discuss with family as to comfort care dc to snf if labs improved GT change per GI medications/laboratory data/nursing notes reviewed in detail note reviewed and edited Critical Care - Subjective ROS Limited/Unobtainable: Yes EKG Rhythm: Sinus Rhythm I&O: Intake and Output 02/26/17 02/27/17 19:00 07:00 Intake Total 920 ml Balance 920 ml IV Total 920 ml Critical Care - Objective Last 24 Hour Vital Signs Date Time Temp Pulse Resp B/P (MAP) Pulse Ox O2 Delivery O2 Flow Rate FiO2 02/26/17 13:10 97 20 40 02/26/17 12:15 96.3 96 20 113/84 98 Mechanical Ventilator 40 02/26/17 12:00 92 02/26/17 12:00 40 02/26/17 11:29 98 21 40 02/26/17 09:50 95 20 40 02/26/17 08:00 97.3 97 22 100/57 97 Mechanical Ventilator 40 02/26/17 08:00 40 02/26/17 07:31 94 02/26/17 07:24 95 20 40 02/26/17 05:29 98 21 40 02/26/17 04:00 97.5 99 22 108/72 97 Mechanical Ventilator 40 02/26/17 04:00 40 02/26/17 04:00 100 02/26/17 03:15 97 21 40 02/26/17 01:41 99 20 100 Mechanical Ventilator 40 02/26/17 01:33 92 20 100 Mechanical Ventilator 40 02/26/17 01:00 87 21 40 02/26/17 00:00 40 02/26/17 00:00 90 02/25/17 23:54 97.5 90 20 100/68 97 Mechanical Ventilator 40 02/25/17 22:48 93 21 40 02/25/17 21:22 98 21 40 02/25/17 20:00 40 02/25/17 20:00 97.3 92 22 113/72 97 Mechanical Ventilator 40 02/25/17 20:00 90 02/25/17 19:28 93 21 40 02/25/17 16:36 88 21 40 02/25/17 16:00 98.1 90 20 109/73 96 Mechanical Ventilator 40 02/25/17 16:00 40 02/25/17 16:00 90 02/25/17 14:58 85 20 40 Objective: WDWN chronically ill and poorly responsive coarse breath sounds bilaterally [id number] without MRG NABS nontender no HSM; GT no CC noted edema- diffuse poor LOC trach Accucheck: 176 AMALIA HUGO Feb 26, 2017 14:00
[2017-02-26 14:45] LABS: ANION GAP 12 (5-15); CALCIUM 6.8 mg/dL (8.6-10.2); CARBON DIOXIDE 22 mEQ/L (20-30); CHLORIDE 109 mEQ/L (98-107); CREATININE 0.7 mg/dL (0.5-0.9); GLOMERULAR FILTRATION RATE > 60 mL/min (>60); HEMOLYSIS 0; POTASSIUM 4.3 mEQ/L (3.4-4.9); SODIUM 143 mEQ/L (135-145)
[2017-02-26 16:00] VITALS: BP 103/51
--- NOTE | 2017-02-26 19:30 | General Progress Note ---
Assessment/Plan Assessment/Plan Assessment - TF intolerance / leak , due to overall poor health - Met BRCA - Resp failure - Anasarca - Hypernatremia / free water deficit - hypoglycemia Recommendations - Retry TF - PPI - IV D5 W - Hold long acting insulin - follow labs - empiric flagyl - agree with terminal care Subjective Allergies: Coded Allergies: No Known Allergies (Unverified , 02/11/17) Subjective Doing poorly off of TF non communicative d/w RN Objective Last 24 Hour Vital Signs Date Time Temp Pulse Resp B/P (MAP) Pulse Ox O2 Delivery O2 Flow Rate FiO2 02/26/17 17:51 98 20 100 Mechanical Ventilator 40 02/26/17 17:48 90 20 99 Mechanical Ventilator 40 02/26/17 17:45 92 22 40 02/26/17 16:00 40 02/26/17 16:00 96.9 89 20 103/51 97 Mechanical Ventilator 40 02/26/17 15:28 89 26 40 02/26/17 15:13 90 02/26/17 13:10 97 20 40 02/26/17 12:15 96.3 96 20 113/84 98 Mechanical Ventilator 40 02/26/17 12:00 92 02/26/17 12:00 40 02/26/17 11:29 98 21 40 02/26/17 09:50 95 20 40 02/26/17 08:00 97.3 97 22 100/57 97 Mechanical Ventilator 40 02/26/17 08:00 40 02/26/17 07:31 94 02/26/17 07:24 95 20 40 02/26/17 05:29 98 21 40 02/26/17 04:00 97.5 99 22 108/72 97 Mechanical Ventilator 40 02/26/17 04:00 40 02/26/17 04:00 100 02/26/17 03:15 97 21 40 02/26/17 01:41 99 20 100 Mechanical Ventilator 40 02/26/17 01:33 92 20 100 Mechanical Ventilator 40 02/26/17 01:00 87 21 40 02/26/17 00:00 40 02/26/17 00:00 90 02/25/17 23:54 97.5 90 20 100/68 97 Mechanical Ventilator 40 02/25/17 22:48 93 21 40 02/25/17 21:22 98 21 40 02/25/17 20:00 40 02/25/17 20:00 97.3 92 22 113/72 97 Mechanical Ventilator 40 02/25/17 20:00 90 02/25/17 19:28 93 21 40 Intake and Output 02/26/17 02/27/17 19:00 07:00 Intake Total 1520 ml Output Total 100 ml Balance 1420 ml IV Total 1520 ml Output Urine Total 100 ml Laboratory Tests 02/26/17 14:15: Sodium Level 143, Potassium Level 4.3, Chloride Level 109H, Carbon Dioxide Level 22, Anion Gap 12, Blood Urea Nitrogen 81H, Creatinine 0.7, Estimat Glomerular Filtration Rate > 60, Glucose Level 135#H, Calcium Level 6.8L Height (Feet): 5 Height (Inches): 3.00 Weight (Pounds): 162 Objective Debilitated woman NCAT (+) trach coarse ronchi RR Abd distended, edema, anasaca, GT ext (+) edema OBS MAYCOL LANIER Feb 26, 2017 19:30
[2017-02-26 20:00] VITALS: BP 99/79
[2017-02-26] MEDS: Dyna-Hex 2% Top Sol 2oz TOPIC SCH (21:16)
[2017-02-27] VITALS (7 sets, daily range): BP systolic 73–127; BP diastolic 37–91
[2017-02-27] MEDS: Metoclopramide 10mg/10ml Liq NG SCH ×2 (00:30→05:34)
[2017-02-27] MEDS: NovoLOG Insulin Flexpen SUBQ SCH ×3 (00:31→12:00)
[2017-02-27] MEDS: Meropenem 1 GM in NS 110 ML IVPB SCH ×3 (05:33→20:52)
[2017-02-27] MEDS: Dorzolamide 2% 10ml Btl RIGHT EYE SCH ×3 (05:34→22:00)
[2017-02-27] MEDS: Brimonidine 0.2% Opth Sol RIGHT EYE SCH ×3 (05:34→22:00)
[2017-02-27 05:55] LABS: ANION GAP 13 (5-15); CALCIUM 6.9 mg/dL (8.6-10.2); CARBON DIOXIDE 21 mEQ/L (20-30); CHLORIDE 107 mEQ/L (98-107); CREATININE 0.7 mg/dL (0.5-0.9); GLOMERULAR FILTRATION RATE > 60 mL/min (>60); HEMOLYSIS 21; POTASSIUM 4.4 mEQ/L (3.4-4.9); SODIUM 141 mEQ/L (135-145)
[2017-02-27] MEDS: Aspirin Baby 81mg GT SCH (08:32)
[2017-02-27] MEDS: Ascorbic Acid 500mg tab ORAL SCH (08:32)
[2017-02-27] MEDS: Heparin 5000 units/ml inj SUBQ SCH ×2 (08:33→20:53)
--- NOTE | 2017-02-27 09:16 | General Progress Note ---
Assessment/Plan Assessment/Plan Assessment - TF intolerance / leak , due to overall poor health - Met BRCA - Resp failure - Anasarca - sepsis - Terminal Recommendations - CT scan - check CBC - agree with bioethics - follow labs - empiric flagyl - suggest terminal care Subjective Allergies: Coded Allergies: No Known Allergies (Unverified , 02/11/17) Subjective Doing poorly d/w RN still unable to tolerate TF at bedside Objective Last 24 Hour Vital Signs Date Time Temp Pulse Resp B/P (MAP) Pulse Ox O2 Delivery O2 Flow Rate FiO2 02/27/17 08:00 40 02/27/17 07:56 98.5 101 21 109/91 100 Mechanical Ventilator 40 02/27/17 07:10 98 23 40 02/27/17 05:18 97 28 40 02/27/17 04:00 97 02/27/17 04:00 40 02/27/17 04:00 97.0 74 30 127/64 98 Mechanical Ventilator 40 02/27/17 03:13 98 30 40 02/27/17 01:22 107 26 40 02/27/17 00:28 97.5 105 28 105/79 95 Mechanical Ventilator 40 02/27/17 00:00 103 02/26/17 23:25 114 27 40 02/26/17 21:15 97 20 40 02/26/17 20:00 40 02/26/17 20:00 97.6 100 26 99/79 95 Mechanical Ventilator 40 02/26/17 19:30 95 21 40 02/26/17 19:07 101 02/26/17 17:51 98 20 100 Mechanical Ventilator 40 02/26/17 17:48 90 20 99 Mechanical Ventilator 40 02/26/17 17:45 92 22 40 02/26/17 16:00 40 02/26/17 16:00 96.9 89 20 103/51 97 Mechanical Ventilator 40 02/26/17 15:28 89 26 40 02/26/17 15:13 90 02/26/17 13:10 97 20 40 02/26/17 12:15 96.3 96 20 113/84 98 Mechanical Ventilator 40 02/26/17 12:00 92 02/26/17 12:00 40 02/26/17 11:29 98 21 40 02/26/17 09:50 95 20 40 Laboratory Tests 02/26/17 14:15: Sodium Level 143, Potassium Level 4.3, Chloride Level 109H, Carbon Dioxide Level 22, Anion Gap 12, Blood Urea Nitrogen 81H, Creatinine 0.7, Estimat Glomerular Filtration Rate > 60, Glucose Level 135#H, Calcium Level 6.8L 02/27/17 04:45: Sodium Level 141, Potassium Level 4.4, Chloride Level 107, Carbon Dioxide Level 21, Anion Gap 13, Blood Urea Nitrogen 81H, Creatinine 0.7, Estimat Glomerular Filtration Rate > 60, Glucose Level 77, Calcium Level 6.9L Height (Feet): 5 Height (Inches): 3.00 Weight (Pounds): 158 Objective Debilitated woman NCAT (+) trach coarse ronchi RR Abd distended, edema, anasarca, GT ext (++) edema/anasarca OBS MAYCOL LANIER Feb 27, 2017 09:16
[2017-02-27 09:31] LABS: MEAN CORPUSCULAR HEMOGLOBIN 29.3 PG (27.0-31.0); MEAN CORPUSCULAR HGB CONC 32.7 G/DL (32.0-36.0); MEAN CORPUSCULAR VOLUME 89 FL (80-99); MEAN PLATELET VOLUME 11.3 FL (6.5-10.1); PLATELET COUNT 212 K/UL (150-450); RED BLOOD COUNT 3.88 M/UL (4.20-5.40); WHITE BLOOD COUNT 16.1 K/UL (4.8-10.8)
[2017-02-27 10:17] LABS: ANISOCYTOSIS 1+; BAND NEUTROPHILS % (MANUAL) 6 % (0-8); BASOPHILS % (MANUAL) 0 % (0-2); EOSINOPHILS % (MANUAL) 0 % (0-3); LYMPHOCYTES % (MANUAL) 5 % (20-45); NEUTROPHILS % (MANUAL) 78 % (45-75); PLATELET ESTIMATE ADEQUATE; PLATELET MORPHOLOGY NORMAL; TOTAL CELLS COUNTED 100
[2017-02-27 10:18] LABS: ACANTHOCYTES 1+
--- NOTE | 2017-02-27 10:38 | Wound Care Consultation ---
Wound Assessment Wound Assessment #1: Wound Number: 1 Wound Present on Admission: No New Wound: Yes Status Change of Wound: No Wound Location Body Site Modif: left Wound Location Body Site: heel Wound Type: pressure ulcer Valerie Test: Does not Valerie Pressure Ulcer Stage: deep tissue injury - SUSPECTED Wound Thickness: Full Thickness Wound Length: 5.0 Wound Width: 5.0 Wound Depth: utd Percent of Wound Rupert/Red: 50 Percent of Wound Purple/Maroon: 50 Wound Drainage Description: Serosanguineous Wound Drainage Amount: None Wound Drainage Odor: None/Absent Tissue Surrounding Wound: Erythemic Wound General Appearance: Reddened Wound Assessment #2: Wound Number: 2 Wound Present on Admission: No New Wound: Yes Status Change of Wound: No Wound Location Body Site Modif: right Wound Location Body Site: other - Femoral Wound Type: blister - ruptured Valerie Test: Does not Valerie Wound Thickness: Partial Thickness Wound Length: 2.0 Wound Width: 2.0 Wound Depth: 0.1 Percent of Wound Rupert/Red: 100 Wound Drainage Description: Serosanguineous Wound Drainage Amount: Scant Wound Drainage Odor: None/Absent Tissue Surrounding Wound: Erythemic Wound General Appearance: Reddened Wound Comment #1 Left heel suspected deep tissue injury. #2 right femoral ruptured scatted blisters. Recommendation. -Local wound care as ordered. -Turn and reposition. -Offload affected site. -heel protectors. -Keep clean and dry. -Optimize nutrition. -Avoid shear and friction. -Low air loss mattress for wound and skin management. -Assess and notify MD for any further changes of condition is noted. FINN FRANCE Feb 27, 2017 10:38
[2017-02-27] MEDS: Metoclopramide 10mg/2ml Inj IVP SCH ×2 (12:09→17:12)
--- NOTE | 2017-02-27 12:47 | Infectious Diseases Prog Note ---
Assessment/Plan Assessment/Plan A 1. aspiration pneumonia 2. Anasarca 3. leucocytosis improving 4. metastatic breast cancer 5. respiratory failure 6. VRE colonization 7. Fungal UTI s/p Rx P 1. continue meropenem 2. poor prognosis Subjective ROS Limited/Unobtainable: Yes Gastrointestinal/Abdominal: Reports: other - GT leaking, NPO Allergies: Coded Allergies: No Known Allergies (Unverified , 02/11/17) Objective Vital Signs Last 24 Hour Vital Signs Date Time Temp Pulse Resp B/P (MAP) Pulse Ox O2 Delivery O2 Flow Rate FiO2 02/27/17 10:34 109 18 95/63 100 Mechanical Ventilator 40 02/27/17 08:53 95 22 40 02/27/17 08:00 40 02/27/17 07:56 98.5 101 21 109/91 100 Mechanical Ventilator 40 02/27/17 07:54 100 02/27/17 07:10 98 23 40 02/27/17 05:18 97 28 40 02/27/17 04:00 97 02/27/17 04:00 40 02/27/17 04:00 97.0 74 30 127/64 98 Mechanical Ventilator 40 02/27/17 03:13 98 30 40 02/27/17 01:22 107 26 40 02/27/17 00:28 97.5 105 28 105/79 95 Mechanical Ventilator 40 02/27/17 00:00 103 02/26/17 23:25 114 27 40 02/26/17 21:15 97 20 40 02/26/17 20:00 40 02/26/17 20:00 97.6 100 26 99/79 95 Mechanical Ventilator 40 02/26/17 19:30 95 21 40 02/26/17 19:07 101 02/26/17 17:51 98 20 100 Mechanical Ventilator 40 02/26/17 17:48 90 20 99 Mechanical Ventilator 40 02/26/17 17:45 92 22 40 02/26/17 16:00 40 02/26/17 16:00 96.9 89 20 103/51 97 Mechanical Ventilator 40 02/26/17 15:28 89 26 40 02/26/17 15:13 90 02/26/17 13:10 97 20 40 Height (Feet): 5 Height (Inches): 3.00 Weight (Pounds): 158 HEENT: status post trach Respiratory/Chest: decreased breath sounds, other - on ventilator Cardiovascular: tachycardia, other - hypotensive Abdomen: distended, other - GT in place Extremities: other - anasarca Neurologic/Psychiatric: other - opens eyes Laboratory Tests Test 02/26/17 14:15 02/27/17 04:45 02/27/17 07:37 Sodium Level 143 mEQ/L (135-145) 141 mEQ/L (135-145) Potassium Level 4.3 mEQ/L (3.4-4.9) 4.4 mEQ/L (3.4-4.9) Chloride Level 109 mEQ/L (98-107) H 107 mEQ/L (98-107) Carbon Dioxide Level 22 mEQ/L (20-30) 21 mEQ/L (20-30) Anion Gap 12 (5-15) 13 (5-15) Blood Urea Nitrogen 81 mg/dL (7-23) H 81 mg/dL (7-23) H Creatinine 0.7 mg/dL (0.5-0.9) 0.7 mg/dL (0.5-0.9) Estimat Glomerular Filtration Rate > 60 mL/min (>60) > 60 mL/min (>60) Glucose Level 135 mg/dL (74-106) #H 77 mg/dL (74-106) Calcium Level 6.8 mg/dL (8.6-10.2) L 6.9 mg/dL (8.6-10.2) L White Blood Count 16.1 K/UL (4.8-10.8) H Red Blood Count 3.88 M/UL (4.20-5.40) L Hemoglobin 11.4 G/DL (12.0-16.0) L Hematocrit 34.7 % (37.0-47.0) L Mean Corpuscular Volume 89 FL (80-99) Mean Corpuscular Hemoglobin 29.3 PG (27.0-31.0) Mean Corpuscular Hemoglobin Concent 32.7 G/DL (32.0-36.0) Red Cell Distribution Width 15.0 % (11.6-14.8) H Platelet Count 212 K/UL (150-450) Mean Platelet Volume 11.3 FL (6.5-10.1) H Neutrophils (%) (Auto) % (45.0-75.0) Lymphocytes (%) (Auto) % (20.0-45.0) Monocytes (%) (Auto) % (1.0-10.0) Eosinophils (%) (Auto) % (0.0-3.0) Basophils (%) (Auto) % (0.0-2.0) Differential Total Cells Counted 100 Neutrophils % (Manual) 78 % (45-75) H Lymphocytes % (Manual) 5 % (20-45) L Monocytes % (Manual) 11 % (1-10) H Eosinophils % (Manual) 0 % (0-3) Basophils % (Manual) 0 % (0-2) Band Neutrophils 6 % (0-8) Platelet Estimate Adequate Platelet Morphology Normal Anisocytosis 1+ Acanthocytes 1+ Current Medications Medications (Trade) Dose Ordered Sig/Colleen Route PRN Reason Start Time Stop Time Status Last Admin Dose Admin Acetaminophen (Tylenol) 650 mg Q4H PRN GT Mild Pain/Temp > 100.5 02/21/17 14:45 03/13/17 22:44 02/26/17 05:42 Al Hydroxide/Mg Hydroxide (Mylanta) 30 ml Q4H PRN GT Abdominal cramps 02/21/17 14:00 03/13/17 13:59 Albuterol/ Ipratropium (DuoNeb 0.5-3(2.5)mg/3ml) 3 ml Q4H PRN HHN Shortness of Breath 02/22/17 14:30 02/27/17 14:29 02/26/17 17:47 Ascorbic Acid (Vitamin C) 500 mg DAILY ORAL 02/22/17 09:00 03/20/17 08:59 02/27/17 08:32 Aspirin (ASA) 81 mg DAILY GT 02/22/17 09:00 03/14/17 08:59 02/27/17 08:32 Brimonidine Tartrate (Alphagan) 1 drop Q8HR RIGHT EYE 02/21/17 14:00 03/14/17 13:59 02/27/17 05:34 Chlorhexidine Gluconate (Patricia-Hex 2%) 1 applic QHS TOPIC 02/21/17 21:00 03/15/17 20:59 02/26/17 21:16 Collagenase (Santyl) 1 applic DAILY TOPIC 02/24/17 15:00 03/26/17 14:59 02/27/17 08:35 Dextrose 1,000 ml @ 100 mls/hr Q10H IV 02/25/17 21:00 03/27/17 20:59 02/27/17 12:09 Dextrose (Dextrose 50%) STAT PRN IV Hypoglycemia 02/21/17 14:00 03/13/17 13:59 02/25/17 12:45 Dorzolamide HCl (Trusopt) 1 drop EVERY 8 HOURS RIGHT EYE 02/21/17 14:00 03/14/17 13:59 02/27/17 05:34 Heparin Sodium (Porcine) (Heparin 5000 units/ml) 5,000 units Q12HR SUBQ 02/21/17 21:00 03/18/17 08:59 02/27/17 08:33 Insulin Aspart (NovoLOG) EVERY 6 HOURS SUBQ 02/21/17 18:00 03/20/17 20:59 02/27/17 00:31 Lansoprazole (Prevacid) 30 mg DAILY GT 02/22/17 09:00 03/14/17 08:59 02/27/17 08:34 Meropenem 1 gm/ Sodium Chloride 110 ml @ 220 mls/hr Q8HR IVPB 02/24/17 14:00 03/03/17 13:59 02/27/17 05:33 Metoclopramide HCl (Reglan) 10 mg Q6HR IVP 02/27/17 12:00 03/29/17 11:59 02/27/17 12:09 Metronidazole 100 ml @ 100 mls/hr Q8HR IVPB 02/25/17 22:00 03/04/17 21:59 02/27/17 05:33 Ondansetron HCl (Zofran) 4 mg Q6H PRN IVP Nausea & Vomiting 02/21/17 14:00 03/13/17 13:59 02/23/17 10:07 SEVERINO MOREL Feb 27, 2017 12:47
--- NOTE | 2017-02-27 17:06 | Critical Care Progress Note ---
Assessment/Plan Assessment/Plan IMPRESSION Sepsis respiratory failure anasarca CRF possible gastroparesis metastatic breast ca leukocytosis acidemia hyperkalemia anemia hypernatremia acute renal failure PLAN terminal extubation morphine PRN DNR dc meds Critical Care - Subjective Interval Events: care noted family wants terminal extubation DNR confirmed d/w social work family in agreement I&O: Intake and Output 02/27/17 02/28/17 19:00 07:00 Intake Total 700 ml Balance 700 ml IV Total 700 ml # Bowel Movements 1 Critical Care - Objective Last 24 Hour Vital Signs Date Time Temp Pulse Resp B/P (MAP) Pulse Ox O2 Delivery O2 Flow Rate FiO2 02/27/17 16:50 106 29 40 02/27/17 16:00 95.2 110 19 73/37 98 Mechanical Ventilator 02/27/17 16:00 40 02/27/17 14:58 95 24 40 02/27/17 13:22 93 22 40 02/27/17 12:00 97.8 105 20 99/83 99 Mechanical Ventilator 40 02/27/17 12:00 40 02/27/17 11:52 104 02/27/17 11:10 93 22 40 02/27/17 10:34 109 18 95/63 100 Mechanical Ventilator 40 02/27/17 08:53 95 22 40 02/27/17 08:00 40 02/27/17 07:56 98.5 101 21 109/91 100 Mechanical Ventilator 40 02/27/17 07:54 100 02/27/17 07:10 98 23 40 02/27/17 05:18 97 28 40 02/27/17 04:00 97 02/27/17 04:00 40 02/27/17 04:00 97.0 74 30 127/64 98 Mechanical Ventilator 40 02/27/17 03:13 98 30 40 02/27/17 01:22 107 26 40 02/27/17 00:28 97.5 105 28 105/79 95 Mechanical Ventilator 40 02/27/17 00:00 103 02/26/17 23:25 114 27 40 02/26/17 21:15 97 20 40 02/26/17 20:00 40 02/26/17 20:00 97.6 100 26 99/79 95 Mechanical Ventilator 40 02/26/17 19:30 95 21 40 02/26/17 19:07 101 02/26/17 17:51 98 20 100 Mechanical Ventilator 40 02/26/17 17:48 90 20 99 Mechanical Ventilator 40 02/26/17 17:45 92 22 40 Objective: WDWN chronically ill and poorly responsive coarse breath sounds bilaterally [id number] without MRG NABS nontender no HSM; GT no CC noted edema- diffuse poor LOC trach Accucheck: 92 AMALIA HUGO Feb 27, 2017 17:06
[2017-02-27] MEDS: Dyna-Hex 2% Top Sol 2oz TOPIC SCH (20:53)
[2017-02-28] MEDS: Metoclopramide 10mg/2ml Inj IVP SCH
[2017-02-28] MEDS: Morphine Sulfate 10mg/ml Inj IVP PRN ×2 (00:04→00:47)
--- NOTE | 2017-03-03 10:00 | Discharge Summary ---
Discharge Summary Hospital Course Date of Admission Feb 11, 2017 at 18:11 Date of Discharge Feb 28, 2017 at 00:25 Admitting Diagnosis septic shock HPI Rebecca Osorio is a 66 year old female who was admitted on Feb 11, 2017 at 18:11 for Septic Shock Hospital Course [facility] #[id number] Discharge Discharge Disposition Patient Discharge Diagnoses: Discharge Instructions Discharge Instructions Special Instructions I have been assigned to complete a D/C Summary on this account. I was not involved in the patient management Abiola Patrick NP (Vanchtein) Mar 03, 2017 10:00
--- NOTE | 2017-03-04 00:45 | Discharge Summary 2 SIG ---
SUMMARY DATE OF ADMISSION: 02/11/2017 DATE OF EXPIRATION: 02/28/2017 Reason For Admission: 66-year-old female with a history of metastatic breast cancer, ventilator dependent, tracheostomy status, diabetes, renal failure, and anemia, presented with a concern of aspiration. Apparently, she was vomiting at the long term facility and stomach contents were coming from her tracheostomy. Upon evaluation in the emergency room, the patient was febrile and tachycardic. WBC -18, hemoglobin -9.1, and hematocrit- 27. EKG showed sinus tachycardia- 110 and 120s. Chest x-ray revealed bilateral pleural effusions. Subsequently, CT of the abdomen and pelvis revealed right lower lobe consolidation, anasarca, and generalized edema. Sodium -132 and potassium- 5.5. Troponin was negative. Lactic acid -1.8. Blood pressure was low, but responded to aggressive fluid challenge. The patient was admitted for further management. ADMITTING DIAGNOSES: 1. Septic shock. 2. Sepsis. 3. Pneumonia. 4. Metastatic breast cancer. 5. Chronic renal failure. 6. Sacral decubitus, stage 4/un-stageable, present on admission. 7. Left ischial tuberosity stage II, present on admission. 8. Anemia. 9. Hyperkalemia. 10. Diabetes mellitus. Hospital Stay: The patient was admitted. ID consult was requested. The patient was on empiric antibiotics, which were optimized based on culture. Urine culture initially with mixed urogenital contaminant. Blood culture were negative. Sputum culture revealed Klebsiella ESBL and Proteus ESBL. Repeated urine culture revealed Mouna. The patient was on IV antibiotics, status post treatment for fungal UTI. ID specialist clsoely followed. G-tube was placed to suction. The patient was on PPI. GI specialist closely followed. Ventilator support and pulmonary care provided. Tracheostomy care provided. The patient was acidotic. Ventilator settings were adjusted based on ABG results. Blood sugar was managed with sliding scale of insulin. The patient required 2 units of packed red blood cells transfusion for hemoglobin -7.7 and hematocrit- 25.1. After transfusion, hemoglobin -13.4 and hematocrit- 40.6. The patient did not show any signs of improvement. She had persistent leukocytosis. Follow up chest x-ray revealed no improvement in the pneumonia. Last chest x-ray revealed bilateral pneumonia. jig worker met with the family and discussed further goals of care. Family also met with doctor. Terminal condition of the patient due to the metastatic breast cancer, ventilator-dependent respiratory failure, and current underlying infection was discussed with the family. Family changed the code status to DNR/DNI. On 02/27/2017, doctor at bedside confirmed family wishes. The patient was off medication . Family requested terminal extubation. and daughter were at the bedside. The patient status post terminal extubation later on 02/27/2017 and subsequently was placed on the FiO2 40% via trach collar. Pulse oximetry was steadily decreasing. Morphine was given for comfort as needed. The patient was pronounced on 02/28/2017 at 0025 hours. Cause of : Cardiopulmonary arrest. FINAL DIAGNOSES: 1. Septic shock. 2. Sepsis. 3. Ventilator-dependent respiratory failure. 4. Tracheostomy status. 5. Aspiration pneumonia with Klebsiella extended-spectrum beta-lactamase and Proteus extended-spectrum beta-lactamase. 6. Metastatic breast cancer. 7. Acidosis. 8. Chronic renal failure. 9. Sacral decubitus stage 4/un stageable, present on admission. 10. Left ischial tuberosity stage 2 decubitus ulcer, present on admission. 11. Anemia, status post blood transfusion. 12. Hyperkalemia, status post treatment. 13. Diabetes mellitus. 14. Anasarca. 15. Fungal urinary tract infection, status post treatment. 16. Acidemia. Gunner Mak M.D. I have been assigned to dictate discharge summary on this account and I was not involved in the patient's management. Abiola Patrick (Vanchtein) N.PYola DR: MOISES JOB#: [id number] CC: ANASTACIO
== END 2017-02-28 00:25 | disposition expired | DRG 720 ==
LOC: EDBD 16:45 → EMR 17:55 → EDBEDREQ 18:01 → EDBD 18:11 → ICU 18:11 → EDBEDREQ 18:55 → 2W 02-21 13:22
PROC: 5A1955Z Respiratory Ventilation, Greater than 96 Consecutive Hours (ICD-10-PCS; principal; 2017-02-11)
DX: A41.9 Sepsis, unspecified organism (principal); J69.0 Pneumonitis due to inhalation of food and vomit; R65.21 Severe sepsis with septic shock; Z99.11 Dependence on respirator [ventilator] status; N17.9 Acute kidney failure, unspecified; L89.154 Pressure ulcer of sacral region, stage 4; B49 Unspecified mycosis; E87.0 Hyperosmolality and hypernatremia; C79.9 Secondary malignant neoplasm of unspecified site; K31.84 Gastroparesis; Z93.1 Gastrostomy status; C50.919 Malignant neoplasm of unspecified site of unspecified female breast; J96.10 Chronic respiratory failure, unspecified whether with hypoxia or hypercapnia; E11.649 Type 2 diabetes mellitus with hypoglycemia without coma; Z93.0 Tracheostomy status; N18.9 Chronic kidney disease, unspecified; N39.0 Urinary tract infection, site not specified; E87.5 Hyperkalemia; D64.9 Anemia, unspecified
CPT/HCPCS: 36415; 36600; 71010; 74000; 74177; 80048; 80053; 80202; 81001; 81003; 82550; 82553; 82803; 82962; 83605; 84484; 85007; 85025; 85610; 85730; 86850; 86900; 86901; 86920; 87040; 87070; 87081; 87086; 87181; 87205; 92950; 93005; 94002; 94003; 94640; 94760; J0171; J1815; J2405; J2765; J7620; S5561